=== PATIENT | female | born 1985 | race Caucasian/White ===

== ENCOUNTER → 2016-04-16 | Day surgery (SDC) | payer BC | LOC: RAD 13:02 | PROVIDERS: ATTEND Orthopaedic Surgery | PROC: BP08ZZZ Plain Radiography of Right Shoulder (ICD-10-PCS; principal; 2016-04-16) | DX: S43.431D Superior glenoid labrum lesion of right shoulder, subsequent encounter (principal); X58.XXXD Exposure to other specified factors, subsequent encounter | CPT/HCPCS: 73222; 73040; 77002; A9576 ==

== ENCOUNTER 2016-06-07 13:15 | Day surgery (SDC) | payer BC ==
[2016-06-03 10:32] LABS: HEMATOCRIT 37.7 % (36.0-47.0); HEMOGLOBIN 12.2 g/dL (12.0-15.5); HGB HCT DIFFERENCE -1.1; MEAN CORPUSCULAR HEMOGLOBIN 23.9 pg (27.0-33.4); MEAN CORPUSCULAR HGB CONC 32.3 g/dL (32.0-36.0); MEAN CORPUSCULAR VOLUME 74 fl (80-97); RED BLOOD COUNT 5.09 10^6/uL (3.72-5.28); RED CELL DISTRIBUTION WIDTH 16.2 % (11.5-14.0); WHITE BLOOD COUNT 6.2 10^3/uL (4.0-10.5)
[2016-06-03 10:57] LABS: ANION GAP 12 (5-19); BLOOD UREA NITROGEN 9 mg/dL (7-20); CALCIUM 10.2 mg/dL (8.4-10.2); CARBON DIOXIDE 29 mmol/L (22-30); CHLORIDE 101 mmol/L (98-107); CREATININE RESULT 0.68 mg/dL (0.52-1.25); GLUCOSE 87 mg/dL (75-110)
[~2016-06-07 13:15] MED LIST: BUPIVACAINE HCL 0.5 % INJ/PF 30 ML SDV ONE; CLINDAMYCIN 600 MG/D5W RTU 600 MG/50 ML RTUPB IV PRN; EPINEPHRINE INJ/PF 1 MG/1 ML AMPULE ONE; GLYCOPYRROLATE INJ 0.4 MG/2 ML VIAL ONE; LACTATED RINGERS 1000 ML IV PRN; LIDOCAINE 0.5% INJ-PF (5 MG/ML) 50 ML SDV SUBCUT PRN; LIDOCAINE 2% INJ-PF (20 MG/ML) 10 ML AMPUL ONE; METOCLOPRAMIDE HCL INJ/PF 10 MG/2 ML SDV ONE; NEOSTIGMINE METHYLSULFATE 10 MG/10 ML VIAL ONE; ONDANSETRON HCL INJ/PF 4 MG/2 ML SDV ONE; ROCURONIUM BROMIDE INJ 50 MG/5 ML VIAL IV ONE; SUCCINYLCHOLINE CHLORIDE INJ 200 MG/10 ML VIAL ONE
[2016-06-07] MEDS ORDERED: PROPOFOL INJ 200 MG/20 ML VIAL IV ONE (13:26)
[2016-06-07] MEDS ORDERED: FENTANYL CITRATE INJ/PF 250 MCG/5 ML AMPULE ONE (13:26)
[2016-06-07] MEDS ORDERED: MIDAZOLAM 2 MG/2 ML INJ ONE (13:26)
[2016-06-07] MEDS ORDERED: MORPHINE SULFATE 10 MG/ML INJ ONE ×2 (13:27→16:15)
[2016-06-07] MEDS ORDERED: ACETAMINOPHEN 100 ML IV ONE (13:27)
[2016-06-07] MEDS ORDERED: PROMETHAZINE HCL INJ 25 MG/1 ML VIAL IV PRN ×2 (13:45)
[2016-06-07] MEDS ORDERED: DIPHENHYDRAMINE HCL 50 MG/ML VIAL IV PRN (13:45)
[2016-06-07] MEDS ORDERED: FENTANYL CITRATE INJ/PF 100 MCG/2 ML AMPUL IV PRN ×3 (13:45)
[2016-06-07] MEDS ORDERED: MORPHINE SULFATE 10 MG/ML INJ IV PRN ×2 (13:45→15:58)
[2016-06-07] MEDS ORDERED: MEPERIDINE HCL/PF INJ 25 MG/1 ML DISP.SYRIN IV PRN (13:45)
[2016-06-07] MEDS ORDERED: OXYCODONE-ACETAMINOPHEN 5-325 MG TABLET PO PRN ×3 (13:45→15:58)
--- NOTE | 2016-06-07 15:57 | PDOC DISCHARGE SUMMARY ---
Discharge Summary (SDC) - Discharge Final Diagnosis: Right SLAP Tear Date of Surgery: 06/07/16 Discharge Date: 06/07/16 Condition: Good Treatment or Instructions: Schedule Follow Up w/ Dr. Elliott Nieves @ [facility] for Surgery to be seen in 10-14 days or as scheduled Ider: [place]: Eclectic: May remove dressing on postop day #3, keep incision covered and dry. Ice and elevate May begin finger range of motion attempting to make full fist. Stool softener of choice when on pain medication. Prescriptions: Oxycodone HCl/Acetaminophen [Percocet 5-325 mg Tablet] 1 - 2 tab PO ASDIR PRN # 50 tablet PRN Reason: Discharge Diet: As Tolerated Respiratory Treatments at Home: Deep Breathing/Coughing Discharge Activity: Activity As Tolerated Report the Following to Your Physician Immediately: Fever over 101 Degrees, Unusual Bleeding, Redness, Swelling, Warmth, Increased Soreness, Numbness, Tingling Sensation
[2016-06-07] MEDS ORDERED: ONDANSETRON HCL INJ/PF 4 MG/2 ML SDV ONE (16:02)
[2016-06-07 18:28] VITALS: BP 146/96
--- NOTE | 2016-06-07 19:04 | Operative Report ---
Operative Report DATE OF SURGERY: 06/07/16 PREOPERATIVE DIAGNOSIS: Right Shoulder SLAP Tear POSTOPERATIVE DIAGNOSIS: Same OPERATION: Right Shoulder Arthroscopy, Subacromial Decompression. Open Subpectoralis Biceps Tenodesis SURGEON: CELSO BOWMAN ANESTHESIA: GA COMPLICATIONS: None ESTIMATED BLOOD LOSS: Minimal PROCEDURE: Procedure in Detail: 31 yo female presented with year long right shoulder pain. Patient had MRI which demonstrated labral tear. We attempted conservative management with activity modification, physical therapy, injections and anti-inflammatories. This failed to provide relief at that point we discussed treatment options including continued conservative management versus operative intervention. After discussion of risks and benefits the joint decision was made to proceed with operative treatment. Procedure In Detail: Patient was seen and evaluated in the preoperative holding area. The upper extremity was initialized and marked. Patient received 2g of Ancef IV for bacterial prophylaxis. Patient was taken back to the operative room where transferred to the operative table and placed under general anesthesia. Once they were adequately anesthetized a there were placed in the beachchair position , bilateral lower extremities left upper extremity carefully padded and cervical spine was placed in neutral position. A surgical team debriefing was performed ensuring all instrumentation was available, the surgical procedure was discussed with possible concerns reviewed. The upper extremity was prepped with ChloraPrep and draped in a sterile fashion. A timeout was done identifying correct patient, procedure and extremity everyone in attendance agree with this and verbalized no concerns. A posterior lateral portal was established the arthroscope introduced into the glenohumeral joint. Via triangulation anterior portal was established and a cannula placed. Diagnostic arthroscopy demonstrated full-thickness SLAP tear with positive peel back. Small tear extending into the biceps tendon. Supraspinatus and infraspinatus remained intact without disruption. Subscapularis also remained intact. No evidence of posterior labral pathology. At that point given the patient's age and her anterior shoulder symptoms and along the bicipital groove the decision was made to proceed with biceps tenodesis. A tenotomy was performed repairing for future biceps tenodesis and labral edges were then debrided with the arthroscopic shaver. I then turned my attention to the subacromial space. Arthroscope was introduced in the subacromial space and a lateral portal established. There was mild bursitis and debridement of the subacromial bursa was undertaken. There was no evidence of acromial spur thus acromioplasty was not required in this case. The rotator cuff was inspected and remained in continuity without disruption. At this point I turned my attention to biceps tenodesis. Longitudinal skin incision was made along the inferior third of the pectoralis major. Blunt dissection was performed identifying the inferior border of the pectoralis major. Any peripheral vasculature was carefully coagulated. I then identified the tenotomized long head of the biceps which was retrieved and brought out the wound. The tendon was then secured 2 centimeters distal to the musculotendinous junction with a #2 fiber loop and the remaining diseased portion of the biceps was excised. The Arthrex biceps tenodesis button was then secured to my biceps tendon. Under direct visualization I then cleared an area along the anterior aspect of the humerus and drilled unicortically. The button was then placed into the unicortical hole and the biceps tendon was shuttled to the anterior cortex of the humerus. I then checked stability of the button confirming maximal fixation. Utilizing the free needle one limb of the remaining FiberWire was secured to the biceps providing further fixation. The elbow was then placed through range of motion to ensure appropriate tension of the biceps with flexion and extension. The wound was then copiously irrigated with normal saline. Any peripheral vasculature was carefully coagulated with Bovie cautery. Skin incisions were closed a running subcuticular 3-0 Monocryl suture reinforced with Dermabond and Steri-Strips. 30 mL of 0.5% Marcaine with epinephrine was injected for postoperative pain control. Sponge counts, instrument counts, needle counts counts were correct. Patient was then awoken from anesthesia. Transferred from the operating room table to the operating room stretcher. There was no intraoperative complications patient tolerated procedure well stable to PACU. Postoperative plan: Patient will begin physical therapy 2 weeks postoperatively focused on active and passive motion. We will avoid active biceps loading for 6 weeks.
== END 2016-06-07 18:28 | disposition home or self-care (01) ==
LOC: OROUT 13:15
PROVIDERS: ATTEND Orthopaedic Surgery
PROC: 0RBJ4ZZ Excision of Right Shoulder Joint, Percutaneous Endoscopic Approach (ICD-10-PCS; 2016-06-07)
PROC: 0LM30ZZ Reattachment of Right Upper Arm Tendon, Open Approach (ICD-10-PCS; principal; 2016-06-07 14:30)
DX: S43.431D Superior glenoid labrum lesion of right shoulder, subsequent encounter (principal); X58.XXXD Exposure to other specified factors, subsequent encounter; M75.51 Bursitis of right shoulder; J45.909 Unspecified asthma, uncomplicated; Z88.0 Allergy status to penicillin; Z79.1 Long term (current) use of non-steroidal anti-inflammatories (NSAID); Z79.899 Other long term (current) drug therapy; Z79.891 Long term (current) use of opiate analgesic
CPT/HCPCS: 24340; 36415; 84703; 85027; 80048; 29822; L3650; J2250; J3490 ×2; J0171; J3010; J2765; J2270; J0330; J2405; J2704; J0131; 1630

== ENCOUNTER 2016-07-10 16:32 | Emergency (ER) | payer OTHER, BC ==
[2016-07-10] MEDS ORDERED: ACETAMINOPHEN 325 MG TABLET PO ONE (17:38)
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
[2016-07-10] MEDS ORDERED: ACETAMINOPHEN 325 MG TABLET ONE (17:43)
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
[2016-07-10 19:00] VITALS: BP 127/95
== END 2016-07-10 19:10 | disposition home or self-care (01) ==
LOC: ER 16:32
DX: M25.569 Pain in unspecified knee (principal); M25.511 Pain in right shoulder; V89.2XXA Person injured in unspecified motor-vehicle accident, traffic, initial encounter
CPT/HCPCS: 71020; 99283

== ENCOUNTER 2016-07-12 15:39 | Emergency (ER) | payer OTHER, BC ==
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
[2016-07-12 17:08] VITALS: BP 121/92
== END 2016-07-12 17:07 | disposition home or self-care (01) ==
LOC: ER 15:39
DX: M25.511 Pain in right shoulder (principal)
CPT/HCPCS: 99283

== ENCOUNTER 2016-07-27 21:22 | Emergency (ER) | payer OTHER, BC ==
[2016-07-27 21:36] VITALS: BP 147/69
== END 2016-07-27 22:37 | disposition left against medical advice (07) ==
LOC: ER 21:22
DX: Z53.21 Procedure and treatment not carried out due to patient leaving prior to being seen by health care provider (principal)

== ENCOUNTER 2016-10-09 20:17 | Emergency (ER) | payer BC, OTHER ==
--- NOTE | 2016-10-09 20:49 | ER Document Report ---
ED Medical Screen (RME) - General Chief Complaint: Abdominal Pain Stated Complaint: BACK PAIN AND ABDOMINAL AND PAIN VOMITING Time Seen by Provider: 10/09/16 20:47 Notes: Patient states for 1 month she has had nausea and decreased appetite. She has also had some abdominal pain that started last night. This pain is in the epigastric area and radiates to her back. It has been constant. She has had some loose stool as well. No problems with urination. She denies any vaginal discharge or bleeding. She states she does not believe that she is currently . She has been under a lot of stress lately due to a recent shoulder surgery and getting behind on bills. TRAVEL OUTSIDE OF THE [place] IN LAST 30 DAYS: No - Related Data Allergies/Adverse Reactions: amoxicillin [Amoxicillin] Allergy (Intermediate, Verified 07/12/16 15:42) Hives Penicillins Allergy (Intermediate, Verified 07/12/16 15:42) Hives Past Medical History - Social History Family history: Reviewed & Not Pertinent - Past Medical History Cardiac Medical History: Denies: Hx Coronary Artery Disease, Hx Heart Attack, Hx Hypertension Pulmonary Medical History: Reports: Hx Asthma - CHILD, Hx Pneumonia - 2007 Denies: Hx Bronchitis, Hx COPD Neurological Medical History: Reports: Hx Migraine. Denies: Hx Cerebrovascular Accident, Hx Seizures Renal/ Medical History: Denies: Hx Peritoneal Dialysis Musculoskeltal Medical History: Denies Hx Arthritis, Reports Hx Musculoskeletal Trauma Past Surgical History: Reports: Hx Oral Surgery - Immunizations Immunizations up to date: Yes Hx Diphtheria, Pertussis, Tetanus Vaccination: Yes Physical Exam - Vital signs Vitals: Temp Pulse Resp BP Pulse Ox 98.1 F 100 16 138/93 H 100 10/09/16 20:25 10/09/16 20:25 10/09/16 20:25 10/09/16 20:25 10/09/16 20:25 Course - Vital Signs Vital signs: Temp Pulse Resp BP Pulse Ox 98.1 F 100 16 138/93 H 100 10/09/16 20:25 10/09/16 20:25 10/09/16 20:25 10/09/16 20:25 10/09/16 20:25
[2016-10-09 22:07] LABS: ABSOLUTE BASOPHILS # (AUTO) 0.1 10^3/uL (0.0-0.2); ABSOLUTE LYMPHOCYTES (AUTO) 1.5 10^3/uL (0.5-4.7); ABSOLUTE MONOCYTES (AUTO) 0.6 10^3/uL (0.1-1.4); ABSOLUTE NEUT (AUTO) 5.9 10^3/uL (1.7-8.2); BASOPHILS % (AUTO) 0.7 % (0-2); EOSINOPHILS % (AUTO) 0.2 % (0-6); HEMATOCRIT 35.7 % (36.0-47.0); HEMOGLOBIN 11.7 g/dL (12.0-15.5); HGB HCT DIFFERENCE -0.6; LYMPHOCYTES % (AUTO) 18.8 % (13-45); MEAN CORPUSCULAR HGB CONC 32.6 g/dL (32.0-36.0); MEAN CORPUSCULAR VOLUME 77 fl (80-97); MONOCYTES % (AUTO) 7.3 % (3-13); RED BLOOD COUNT 4.67 10^6/uL (3.72-5.28); RED CELL DISTRIBUTION WIDTH 16.3 % (11.5-14.0); WHITE BLOOD COUNT 8.1 10^3/uL (4.0-10.5)
[2016-10-09] MEDS ORDERED: NORMAL SALINE 1000 ML 1,000 ML IV ONE (22:21)
[2016-10-09] MEDS ORDERED: METOCLOPRAMIDE HCL ORAL SOLN 10 MG/10 ML UDCUP PO ONE (22:22)
[2016-10-09] MEDS ORDERED: LIDOCAINE 2% VISCOUS SOLN 20 ML UDCUP PO ONE (22:22)
[2016-10-09] MEDS ORDERED: FAMOTIDINE 20 MG TABLET PO ONE (22:22)
[2016-10-09] MEDS ORDERED: MAG HYDROX/AL HYDROX/SIMETH SUSP 30 ML UDCUP PO ONE (22:22)
[2016-10-09] MEDS ORDERED: ONDANSETRON HCL INJ/PF 4 MG/2 ML SDV IV ONE (22:23)
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
[2016-10-09 22:30] LABS: ALANINE AMINOTRANSFERASE 28 U/L (9-52); ALBUMIN 4.8 g/dL (3.5-5.0); ALKALINE PHOSPHATASE 50 U/L (38-126); ANION GAP 14 (5-19); ASPARTATE AMINO TRANSFERASE 17 U/L (14-36); BILIRUBIN,DIRECT 0.3 mg/dL (0.0-0.4); BILIRUBIN,TOTAL 0.5 mg/dL (0.2-1.3); BLOOD UREA NITROGEN 10 mg/dL (7-20); CALCIUM 9.8 mg/dL (8.4-10.2); CARBON DIOXIDE 25 mmol/L (22-30); CHLORIDE 101 mmol/L (98-107); CREATININE RESULT 0.63 mg/dL (0.52-1.25); GLUCOSE 93 mg/dL (75-110); LIPASE 151.5 U/L (23-300); POTASSIUM 3.5 mmol/L (3.6-5.0)
[2016-10-09] MEDS ORDERED: ONDANSETRON ODT 4 MG TAB (6 TAB/DSPK) PO PRN (23:50)
[2016-10-10 00:43] VITALS: BP 129/87
== END 2016-10-10 00:43 | disposition home or self-care (01) ==
LOC: ER 20:17
DX: K29.01 Acute gastritis with bleeding (principal); R10.9 Unspecified abdominal pain; M54.9 Dorsalgia, unspecified; R11.10 Vomiting, unspecified; R10.13 Epigastric pain
CPT/HCPCS: 99284; 96361; 96374; 36415; 83690; 84703; 85025; 80053; J3490; J2405; J7030

== ENCOUNTER 2016-10-29 17:12 | Emergency (ER) | payer SELFPAY ==
[2016-10-29] MEDS ORDERED: NORMAL SALINE 1000 ML 1,000 ML IV PRN (17:30)
[2016-10-29] MEDS ORDERED: LIDOCAINE 2% VISCOUS SOLN 20 ML UDCUP PO ONE (17:32)
[2016-10-29] MEDS ORDERED: MAG HYDROX/AL HYDROX/SIMETH SUSP 30 ML UDCUP PO ONE (17:32)
[2016-10-29] MEDS ORDERED: METOCLOPRAMIDE HCL ORAL SOLN 10 MG/10 ML UDCUP PO ONE (17:32)
--- NOTE | 2016-10-29 17:33 | ER Document Report ---
ED Medical Screen (RME) - General Chief Complaint: Abdominal Pain Stated Complaint: ABDOMINAL PAIN Time Seen by Provider: 10/29/16 17:30 Notes: Patient presents with over 1 month of epigastric pain that radiates to her back. She states she also had vomiting and lack of appetite. She states she also has not been staying hydrated. She states that she cannot eat or drink because it increases the pain and because it makes her vomit. She states she has been seen by her doctor and here in the emergency department. An ultrasound and blood work have been unremarkable to this point. Patient denies any previous abdominal surgeries or chronic medical conditions. TRAVEL OUTSIDE OF THE [place] IN LAST 30 DAYS: No - Related Data Allergies/Adverse Reactions: amoxicillin [Amoxicillin] Allergy (Intermediate, Verified 07/12/16 15:42) Hives Penicillins Allergy (Intermediate, Verified 07/12/16 15:42) Hives Past Medical History - Social History Family history: Reviewed & Not Pertinent - Past Medical History Cardiac Medical History: Denies: Hx Coronary Artery Disease, Hx Heart Attack, Hx Hypertension Pulmonary Medical History: Reports: Hx Asthma - CHILD, Hx Pneumonia - 2007 Denies: Hx Bronchitis, Hx COPD Neurological Medical History: Reports: Hx Migraine. Denies: Hx Cerebrovascular Accident, Hx Seizures Renal/ Medical History: Denies: Hx Peritoneal Dialysis Musculoskeltal Medical History: Denies Hx Arthritis, Reports Hx Musculoskeletal Trauma Past Surgical History: Reports: Hx Oral Surgery - Immunizations Immunizations up to date: Yes Hx Diphtheria, Pertussis, Tetanus Vaccination: Yes Physical Exam - Vital signs Vitals: Temp Pulse Resp BP Pulse Ox 99.7 F 116 H 15 134/85 H 100 10/29/16 17:17 10/29/16 17:17 10/29/16 17:17 10/29/16 17:17 10/29/16 17:17 Course - Vital Signs Vital signs: Temp Pulse Resp BP Pulse Ox 99.7 F 116 H 15 134/85 H 100 10/29/16 17:17 10/29/16 17:17 10/29/16 17:17 10/29/16 17:17 10/29/16 17:17
[2016-10-29 17:49] LABS: ABSOLUTE LYMPHOCYTES (AUTO) 1.5 10^3/uL (0.5-4.7); ABSOLUTE MONOCYTES (AUTO) 0.7 10^3/uL (0.1-1.4); ABSOLUTE NEUT (AUTO) 6.9 10^3/uL (1.7-8.2); BASOPHILS % (AUTO) 0.5 % (0-2); EOSINOPHILS % (AUTO) 0.4 % (0-6); HEMATOCRIT 38.7 % (36.0-47.0); HEMOGLOBIN 12.9 g/dL (12.0-15.5); LYMPHOCYTES % (AUTO) 16.4 % (13-45); MEAN CORPUSCULAR HEMOGLOBIN 25.4 pg (27.0-33.4); MEAN CORPUSCULAR HGB CONC 33.4 g/dL (32.0-36.0); MEAN CORPUSCULAR VOLUME 76 fl (80-97); MONOCYTES % (AUTO) 7.6 % (3-13); RED BLOOD COUNT 5.09 10^6/uL (3.72-5.28); SEGMENTED NEUTROPHILS % (AUTO) 75.1 % (42-78); WHITE BLOOD COUNT 9.2 10^3/uL (4.0-10.5)
[2016-10-29 18:05] LABS: APPEARANCE,URINE CLEAR; BILIRUBIN,URINE NEGATIVE (NEGATIVE); GLUCOSE, URINE NEGATIVE (NEGATIVE); KETONES,URINE NEGATIVE (NEGATIVE); LEUKOCYTE ESTERASE,URINE NEGATIVE (NEGATIVE); NITRITE,URINE NEGATIVE (NEGATIVE); PROTEIN,URINE NEGATIVE (NEGATIVE); URINE SPECIFIC GRAVITY 1.008; UROBILINOGEN,URINE NEGATIVE mg/dL (<2.0)
[2016-10-29 18:20] LABS: ANION GAP 15 (5-19)
--- NOTE | 2016-10-29 18:40 | ER Document Report ---
ED GI/ - General Mode of Arrival: Ambulatory Information source: Patient TRAVEL OUTSIDE OF THE [place] IN LAST 30 DAYS: No - HPI Similar symptoms previously: Yes Recently seen / treated by doctor: Yes <JENNIFFER PORTILLO - Last Filed: 10/29/16 21:50> <FRANSISCO MURRAY - Last Filed: 10/29/16 22:49> - General Chief Complaint: Abdominal Pain Stated Complaint: ABDOMINAL PAIN Time Seen by Provider: 10/29/16 17:30 Notes: Patient is a 31 year old female that presents to the emergency department today with complaints of upper abdominal pain. Patient states that the pain seem to radiate to her back. Patient states that she has been seen here in the past and was diagnosed with a stomach ulcer. Patient states that she has been using carafate with minimal relief. Patient states she has been referred to GI but she has not yet seen them. (JENNIFFER PORTILLO) - Related Data Allergies/Adverse Reactions: amoxicillin [Amoxicillin] Allergy (Intermediate, Verified 07/12/16 15:42) Hives Penicillins Allergy (Intermediate, Verified 07/12/16 15:42) Hives Past Medical History - General Information source: Patient - Social History Smoking Status: Never Smoker Cigarette use (# per day): No Frequency of alcohol use: None Drug Abuse: None Lives with: Family Family History: Reviewed & Not Pertinent Patient has suicidal ideation: No Patient has homicidal ideation: No Pulmonary Medical History: Reports: Hx Asthma - CHILD, Hx Pneumonia - 2007 Neurological Medical History: Reports: Hx Migraine Musculoskeltal Medical History: Reports Hx Musculoskeletal Trauma Past Surgical History: Reports: Hx Oral Surgery - Immunizations Immunizations up to date: Yes Hx Diphtheria, Pertussis, Tetanus Vaccination: Yes <JENNIFFER PORTILLO - Last Filed: 10/29/16 21:50> Review of Systems - Review of Systems Constitutional: No symptoms reported EENT: No symptoms reported Cardiovascular: No symptoms reported Respiratory: No symptoms reported Gastrointestinal: See HPI, Abdominal pain, Vomiting Genitourinary: No symptoms reported Female Genitourinary: No symptoms reported Musculoskeletal: No symptoms reported Skin: No symptoms reported Hematologic/Lymphatic: No symptoms reported Neurological/Psychological: No symptoms reported -: Yes All other systems reviewed and negative <JENNIFFER PORTILLO - Last Filed: 10/29/16 21:50> Physical Exam <JENNIFFER PORTILLO - Last Filed: 10/29/16 21:50> <FRANSISCO MURRAY - Last Filed: 10/29/16 22:49> - Vital signs Vitals: Temp Pulse Resp BP Pulse Ox 99.7 F 116 H 15 134/85 H 100 10/29/16 17:17 10/29/16 17:17 10/29/16 17:17 10/29/16 17:17 10/29/16 17:17 - Notes Notes: Physical Exam: General: Alert, appears uncomfortable. HEENT: Normocephalic. Atraumatic. PERRL. Extraocular movements intact. Oropharynx clear. Dry mucous membranes. Neck: Supple. Non-tender. Respiratory: No respiratory distress. Clear and equal breath sounds bilaterally. Cardiovascular: Regular rate and rhythm. Abdominal: Epigastric and right upper quadrant tenderness with palpation. No guarding, rebound, or rigidity. No distension. Normal Bowel Sounds. Back: Non-tender. No deformity or step off. Extremities: Moves all four extremities. Upper extremities: Normal inspection. Normal ROM. Lower extremities: Normal inspection. No edema. Normal ROM. Neurological: Normal cognition. AAOx4. Normal speech. Psychological: Normal affect. Normal Mood. Skin: Warm. Dry. Normal color. (JENNIFFER PORTILLO) Course - Laboratory Result Diagrams: 10/29/16 17:35 10/29/16 17:35 <JENNIFFER PORTILLO - Last Filed: 10/29/16 21:50> - Laboratory Result Diagrams: 10/29/16 17:35 10/29/16 17:35 <FRANSISCO MURRAY - Last Filed: 10/29/16 22:49> - Re-evaluation Re-evalutation: 10/29/16 22:48 Patient with no acute findings on blood work or ultrasound. Patient symptoms are very consistent with gastritis. Patient has continued to take naproxen. She is instructed to stop doing this and has been given instructions for treating gastritis and foods to avoid. Patient is to follow-up with her primary doctor and technology education instructor as previously recommended. Understands and agrees with plan. Stable for discharge. (FRANSISCO MURRAY) - Vital Signs Vital signs: Temp Pulse Resp BP Pulse Ox 98.5 F 116 H 18 108/70 99 10/29/16 21:59 10/29/16 17:17 10/29/16 21:59 10/29/16 21:59 10/29/16 21:59 - Laboratory Laboratory results interpreted by me: 10/29/16 10/29/16 10/29/16 17:35 17:35 17:35 MCV 76 L MCH 25.4 L RDW 16.0 H Chloride 108 H Carbon Dioxide 21 L Total Protein 8.5 H Albumin 5.2 H Urine Blood SMALL H Discharge <JENNIFFER PORTILLO - Last Filed: 10/29/16 21:50> <FRANSISCO MURRAY - Last Filed: 10/29/16 22:49> - Discharge Clinical Impression: Abdominal pain Qualifiers: Abdominal location: epigastric Qualified Code(s): R10.13 - Epigastric pain Gastritis Qualifiers: Gastritis type: unspecified gastritis Chronicity: unspecified Gastritis bleeding: without bleeding Qualified Code(s): K29.70 - Gastritis, unspecified, without bleeding Condition: Stable Disposition: HOME, SELF-CARE Instructions: Abdominal Pain ([facility]), Gastritis ([facility]) Additional Instructions: Stopped taking naproxen as it seems to be the source of your gastritis. Please follow-up with your primary care doctor. Please follow-up with a technology education instructor as recommended by your primary care doctor. Prescriptions: Omeprazole 20 mg PO DAILY #30 tablet. Ranitidine HCl [Zantac 150 mg Tablet] 150 mg PO BID #60 tablet Forms: Return to Work Scribe Attestation: 10/29/16 22:49 I personally performed the services described in the documentation, reviewed and edited the documentation which was dictated to the scribe in my presence, and it accurately records my words and actions. (FRANSISCO MURRAY) Scribe Documentation - Scribe Written by Ted:: Ted Jimenez, 10/29/2016 2154 acting as scribe for :: Kelby <JENNIFFER PORTILLO - Last Filed: 10/29/16 21:50>
[2016-10-29 18:44] LABS: ALANINE AMINOTRANSFERASE 25 U/L (9-52); ALBUMIN 5.2 g/dL (3.5-5.0); ALKALINE PHOSPHATASE 49 U/L (38-126); ASPARTATE AMINO TRANSFERASE 18 U/L (14-36); BILIRUBIN,DIRECT 0.4 mg/dL (0.0-0.4); BILIRUBIN,TOTAL 0.4 mg/dL (0.2-1.3); BLOOD UREA NITROGEN 9 mg/dL (7-20); CALCIUM 10.1 mg/dL (8.4-10.2); CARBON DIOXIDE 21 mmol/L (22-30); CHLORIDE 108 mmol/L (98-107); CREATININE RESULT 0.68 mg/dL (0.52-1.25); GLUCOSE 84 mg/dL (75-110); LIPASE 161.9 U/L (23-300); POTASSIUM 3.7 mmol/L (3.6-5.0); SODIUM 143.9 mmol/L (137-145); TOTAL PROTEIN 8.5 g/dL (6.3-8.2)
[2016-10-29] MEDS ORDERED: MORPHINE SULFATE 10 MG/ML INJ IV ONE (19:21)
[2016-10-29] MEDS ORDERED: ONDANSETRON HCL INJ/PF 4 MG/2 ML SDV IV ONE (19:21)
--- NOTE | 2016-10-29 19:47 | RADIOLOGY REPORT (SQ) ---
EXAM DESCRIPTION: U/S ABDOMEN LIMITED W/O DOP COMPLETED DATE/TIME: 10/29/2016 7:23 pm REASON FOR STUDY: RUQ, epigastric pain, nausea COMPARISON: None. TECHNIQUE: Dynamic and static grayscale images acquired of the abdomen and recorded on PACS. Additio nal selected color Doppler and spectral images recorded. LIMITATIONS: None. FINDINGS: PANCREAS: Incompletely visualized. LIVER: No masses. Echotexture normal. LIVER VASCULATURE: Normal directional flow of the main portal vein and hepatic veins. GALLBLADDER: There is a small polyp. This measures approximately 3 mm. ULTRASOUND-DETECTED PARIKH'S SIGN: Negative. INTRAHEPATIC DUCTS AND COMMON DUCT: CBD and intrahepatic ducts normal caliber. No filling defects. INFERIOR VENA CAVA: Normal flow. AORTA: No aneurysm. RIGHT KIDNEY: Normal size. Normal echogenicity. No solid or suspicious masses. No hydronephrosis. No calcifications. PERITONEAL AND RIGHT PLEURAL SPACE: No ascites or effusions. OTHER: No other significant findings. IMPRESSION: Small gallbladder polyp. No other significant findings. TECHNICAL DOCUMENTATION: JOB ID: [id number] [employer]- All Rights Reserved
[2016-10-29 21:11] VITALS: BP 108/70
[2016-10-29] MEDS ORDERED: HYDROCODONE/ACETAMINOPHEN 5-325 MG 6 TAB/DSPK PO PRN (21:53)
== END 2016-10-29 21:59 | disposition home or self-care (01) ==
LOC: ER 17:12
DX: K29.70 Gastritis, unspecified, without bleeding (principal); R10.13 Epigastric pain; R10.10 Upper abdominal pain, unspecified; Z88.0 Allergy status to penicillin
CPT/HCPCS: 99284; 96374; 96375; 36415; 83690; 85025; 81025; 80053; 81001; 76705; J3490; J2270; J2405

== ENCOUNTER 2018-04-12 19:56 | Emergency (ER) | payer BC, OTHER ==
[2018-04-12] MEDS ORDERED: METHOCARBAMOL 750 MG TABLET PO ONE (21:31)
[2018-04-12] MEDS ORDERED: LIDOCAINE 5% (700 MG) TRANSDERMAL ADH..PATCH TP ONE (21:31)
[2018-04-12] MEDS ORDERED: KETOROLAC TROMETHAMINE 60 MG/2 ML SDV IM ONE (21:31)
--- NOTE | 2018-04-12 21:45 | ER Document Report ---
HPI - HPI Patient complains to provider of: back pain Time Seen by Provider: 04/12/18 21:00 Pain Level: 4 Context: Pleasant 33-year-old female presents to the emergency department for acute lower back pain that radiates down her left leg. She states she first injured it 3 months ago at work and conservative therapy seem to work, then approximately 3 days ago she developed acute pain in her right paraspinal muscle at the level of L4. She states that the pain is 8 out of 10 and constant equivalent to giving . She states the pain radiates down her buttock into her leg that causes numbness and tingling periodically. She is uncomfortable to stand for long periods of time and generally cannot stay in one position for long periods. She says it is affecting her sleep and she is only at about an hour sleep a day. She denies fevers, saddle paresthesia, urinary retention, incontinence. She has no other complaints. She has tried Motrin 800 but is only using it intermittently. She has tried Flexeril with no success. - CONSTITUTIONAL Constitutional: DENIES: Fever, Chills - REPRODUCTIVE Reproductive: DENIES: : Past Medical History - Social History Smoking Status: Unknown if Ever Smoked Family History: Reviewed & Not Pertinent Patient has suicidal ideation: No Patient has homicidal ideation: No - Past Medical History Cardiac Medical History: Denies: Hx Coronary Artery Disease, Hx Heart Attack, Hx Hypertension Pulmonary Medical History: Reports: Hx Asthma - CHILD, Hx Pneumonia - 2007 Denies: Hx Bronchitis, Hx COPD Neurological Medical History: Reports: Hx Migraine. Denies: Hx Cerebrovascular Accident, Hx Seizures Renal/ Medical History: Denies: Hx Peritoneal Dialysis Musculoskeletal Medical History: Denies Hx Arthritis, Reports Hx Musculoskeletal Trauma Past Surgical History: Reports: Hx Oral Surgery - Immunizations Immunizations up to date: Yes Hx Diphtheria, Pertussis, Tetanus Vaccination: Yes Vertical Provider Document - CONSTITUTIONAL Notes: PHYSICAL EXAMINATION: Reviewed vital signs and charting by RN GENERAL: Well-appearing, well-nourished and in no acute distress. HEAD: Atraumatic, normocephalic. EYES: Pupils equal round extraocular movements intact, sclera anicteric, conjunctiva are normal. ENT: nares patent, Moist mucous membranes. NECK: Normal range of motion ABDOMEN: Soft, nontender, normoactive bowel sounds. No guarding, no rebound. No masses appreciated. EXTREMITIES: Normal range of motion, no pitting or edema. No cyanosis. NEUROLOGICAL: Face symmetric. Extraocular motions intact. 5 out of 5 strength in both the distal and proximal upper and lower extremities bilaterally. Sensation is grossly intact throughout. TTP right paraspinal muscle at the level of the 12 down to L5. Reproducible radiating pain down the right leg. PSYCH: Normal mood, normal affect. SKIN: Warm, Dry, normal turgor, no rashes or lesions noted. - INFECTION CONTROL TRAVEL OUTSIDE OF THE [place] IN LAST 30 DAYS: No Course - Re-evaluation Re-evalutation: 04/12/18 21:48 33-year-old female in mild distress presents with acute on subacute back pain that radiates down her right leg. Physical exam is remarkable for tenderness to palpation along the paraspinal muscles that reproduces radiating pain. Plan is to place a Lidoderm patch on her back, give her Toradol 30 mg IM 1 time. We will also send her home with a very short prescription for Valium for 2 days and some Robaxin that she can use after that once breakthrough pain relief is achieved. Patient denies fever, urinary retention or incontinence, or saddle paresthesia. Patient is stable for discharge with follow-up to her primary care doctor. - Vital Signs Vital signs: Temp Pulse Resp BP Pulse Ox 98.2 F 100 14 134/88 H 100 04/12/18 20:00 04/12/18 20:00 04/12/18 20:00 04/12/18 20:00 04/12/18 20:00 Discharge - Discharge Clinical Impression: Lower back pain Qualifiers: Chronicity: acute Back pain laterality: right Sciatica presence: with sciatica Sciatica laterality: sciatica of right side Qualified Code(s): M54.41 - Lumbago with sciatica, right side Condition: Stable Disposition: HOME, SELF-CARE Instructions: Ice Packs ([facility]), Low Back Pain ([facility]), Pain Medication Injection ([facility]), Warm Packs ([facility]) Additional Instructions: You were seen in the emergency department this evening for lower back pain. It is most likely related to a strain injury at work and you have any impingement of the spinal nerves that exit out of the vertebrae that are getting impinged causing the shooting pain down your back. I have given you a shot of Toradol which is equivalent to Motrin which could help with the pain. Of also given you a Lidoderm patch at the same time. I have also given you a very short course of Valium which is a muscle relaxant that you can take before bed. Please do not take this medication while at work or when driving and please reserve it for just prior to going to bed to help you sleep.. Lastly, I have given you a prescription for medication called Robaxin. This is a muscle relaxer that is a different class than the Valium but you can take after you use the Valium. Please do not take the Valium and the Robaxin together as they are both sedating medications. Prescriptions: Diazepam [Valium 5 mg Tablet] 5 mg PO TID #15 tablet Methocarbamol [Robaxin 750 mg Tablet] 750 mg PO ASDIR PRN #40 tablet PRN Reason: Forms: Return to Work Referrals: ROSE MARY CARPENTER PA-C [Primary Care Provider] - Follow up as needed
[2018-04-12 21:57] VITALS: BP 139/74
== END 2018-04-12 21:57 | disposition home or self-care (01) ==
LOC: ER 19:56
DX: M54.41 Lumbago with sciatica, right side (principal); M54.9 Dorsalgia, unspecified; M79.605 Pain in left leg; I10 Essential (primary) hypertension; J45.909 Unspecified asthma, uncomplicated
CPT/HCPCS: 99283; 96372; J1885; J3490

== ENCOUNTER 2018-04-29 12:39 | Emergency (ER) | payer OTHER ==
[2018-04-29] MEDS ORDERED: IBUPROFEN 800 MG TABLET PO ONE (13:56)
[2018-04-29] MEDS ORDERED: ACETAMINOPHEN 325 MG TABLET PO ONE (13:57)
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
[2018-04-29] MEDS ORDERED: LIDOCAINE 5% (700 MG) TRANSDERMAL ADH..PATCH TP ONE (15:44)
[2018-04-29 16:01] VITALS: BP 133/84
== END 2018-04-29 16:01 | disposition home or self-care (01) ==
LOC: ER 12:39
DX: S16.1XXA Strain of muscle, fascia and tendon at neck level, initial encounter (principal); S46.812A Strain of other muscles, fascia and tendons at shoulder and upper arm level, left arm, initial encounter; S43.402A Unspecified sprain of left shoulder joint, initial encounter; M25.552 Pain in left hip; M54.9 Dorsalgia, unspecified; M25.512 Pain in left shoulder; M54.5 Low back pain; M54.2 Cervicalgia; M79.603 Pain in arm, unspecified; M79.606 Pain in leg, unspecified; V87.7XXA Person injured in collision between other specified motor vehicles (traffic), initial encounter
CPT/HCPCS: 72070; 72110; 72125; 81025; 99284

== ENCOUNTER 2018-04-30 16:40 | Emergency (ER) | payer OTHER ==
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
[2018-04-30 19:39] VITALS: BP 147/89
== END 2018-04-30 20:05 | disposition left against medical advice (07) ==
LOC: ER 16:40
DX: I10 Essential (primary) hypertension (principal); G89.29 Other chronic pain; M54.9 Dorsalgia, unspecified; Z88.0 Allergy status to penicillin
CPT/HCPCS: 99283

== ENCOUNTER → 2018-05-17 | Outpatient (CLI) | payer SELFPAY ==
[2018-05-17 17:13] LABS: ABSOLUTE BASOPHILS # (AUTO) 0.1 10^3/uL (0.0-0.2); ABSOLUTE LYMPHOCYTES (AUTO) 1.1 10^3/uL (0.5-4.7); ABSOLUTE MONOCYTES (AUTO) 0.4 10^3/uL (0.1-1.4); ABSOLUTE NEUT (AUTO) 6.7 10^3/uL (1.7-8.2); BASOPHILS % (AUTO) 0.7 % (0-2); EOSINOPHILS % (AUTO) 0.1 % (0-6); HEMATOCRIT 38.9 % (36.0-47.0); HEMOGLOBIN 13.1 g/dL (12.0-15.5); MEAN CORPUSCULAR HEMOGLOBIN 26.9 pg (27.0-33.4); MEAN CORPUSCULAR HGB CONC 33.7 g/dL (32.0-36.0); MEAN CORPUSCULAR VOLUME 80 fl (80-97); MONOCYTES % (AUTO) 4.9 % (3-13); PLATELET COUNT 411 10^3/uL (150-450); RED BLOOD COUNT 4.87 10^6/uL (3.72-5.28); RED CELL DISTRIBUTION WIDTH 14.3 % (11.5-14.0); SEGMENTED NEUTROPHILS % (AUTO) 81.3 % (42-78); TOTAL CELLS COUNTED % (AUTO) 100 %; WHITE BLOOD COUNT 8.2 10^3/uL (4.0-10.5)
[2018-05-17 17:29] LABS: ALANINE AMINOTRANSFERASE 47 U/L (9-52); ALBUMIN 4.9 g/dL (3.5-5.0); ALKALINE PHOSPHATASE 60 U/L (38-126); ANION GAP 13 (5-19); ASPARTATE AMINO TRANSFERASE 42 U/L (14-36); BILIRUBIN,DIRECT 0.3 mg/dL (0.0-0.4); BILIRUBIN,TOTAL 0.5 mg/dL (0.2-1.3); BLOOD UREA NITROGEN 7 mg/dL (7-20); CALCIUM 9.9 mg/dL (8.4-10.2); CARBON DIOXIDE 27 mmol/L (22-30); CHLORIDE 104 mmol/L (98-107); GLUCOSE 109 mg/dL (75-110); SODIUM 143.6 mmol/L (137-145); TOTAL PROTEIN 7.9 g/dL (6.3-8.2)
== END ==
LOC: LAB 16:40
PROVIDERS: ATTEND Nurse Practitioner Family
DX: R10.10 Upper abdominal pain, unspecified (principal)
CPT/HCPCS: 36415; 80053; 83690; 85025; 87086

== ENCOUNTER 2018-05-25 15:39 | Emergency (ER) | payer OTHER ==
[2018-05-25] MEDS ORDERED: ACETAMINOPHEN 325 MG TABLET PO ONE (16:25)
[2018-05-25] MEDS ORDERED: LIDOCAINE 5% (700 MG) TRANSDERMAL ADH..PATCH TP ONE (16:26)
[2018-05-25] MEDS ORDERED: TRAMADOL HCL 50 MG TABLET PO ONE (16:26)
--- NOTE | 2018-05-25 16:32 | ER Document Report ---
HPI - HPI Patient complains to provider of: Low back pain Time Seen by Provider: 05/25/18 16:09 Onset: Yesterday Onset/Duration: Sudden Quality of pain: Sharp Pain Level: 5 Context: Patient states she was lifting a rack that weighed about 45 pounds and her foot slipped. Patient states that this caused a jarring of her back. Patient complains of low back pain. Patient states the pain instantly made her vomit x1 yesterday. Patient complains of persistent pain since then. Patient reports low back pain that radiates into the left lower extremity. Patient does have a history of chronic back pain. Associated Symptoms: Vomiting, Other - Low back pain. denies: Fever, Headache, Weakness Exacerbated by: Movement, Walking Relieved by: Denies Similar symptoms previously: Yes Recently seen / treated by doctor: No - ROS ROS below otherwise negative: Yes Systems Reviewed and Negative: Yes All other systems reviewed and negative - CONSTITUTIONAL Constitutional: DENIES: Fever, Chills - NEURO Neurology: DENIES: Weakness - GASTROINTESTINAL Gastrointestinal: REPORTS: Patient vomiting. DENIES: Abdominal Pain, Nausea - URINARY Urinary: DENIES: Dysuria, Urgency, Frequency - REPRODUCTIVE Reproductive: DENIES: : - MUSCULOSKELETAL Musculoskeletal: REPORTS: Back Pain. 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 Family History: Reviewed & Not Pertinent Pulmonary Medical History: Reports: Hx Asthma - CHILD, Hx Pneumonia - 2007 Neurological Medical History: Reports: Hx Migraine Renal/ Medical History: Denies: Hx Peritoneal Dialysis Musculoskeletal Medical History: Denies Hx Arthritis, Reports Hx Musculoskeletal Trauma Past Surgical History: Reports: Hx Oral Surgery, Hx Orthopedic Surgery - RIGHT SHOULDER - Immunizations Immunizations up to date: Yes Hx Diphtheria, Pertussis, Tetanus Vaccination: Yes Vertical Provider Document - CONSTITUTIONAL Agree With Documented VS: Yes Exam Limitations: No Limitations General Appearance: WD/WN Notes: PHYSICAL EXAMINATION: GENERAL: Well-appearing, well-nourished and in no acute distress. HEAD: Atraumatic, normocephalic. EYES: sclera clear, anicteric, conjunctiva are normal. ENT: nares patent, Moist mucous membranes. NECK: Normal range of motion, supple no lymphadenopathy LUNGS: respirations unlabored HEART: Regular rate and rhythm without murmurs EXTREMITIES: Normal range of motion, no pitting or edema. No cyanosis. Gait normal, pt ambulates without difficulty BACK: Lower lumbar tenderness, lumbar paraspinal tenderness, no deformities or step-offs. No CVA tenderness. NEUROLOGICAL: Cranial nerves grossly intact. Normal speech, normal gait. No saddle anesthesia. 2+ bilateral patellar reflexes PSYCH: Normal mood, normal affect. SKIN: Warm, Dry, normal turgor, no rashes or lesions noted. - INFECTION CONTROL TRAVEL OUTSIDE OF THE [place] IN LAST 30 DAYS: No Course - Re-evaluation Re-evalutation: 05/25/18 16:28 Patient reports only taking muscle relaxer for pain relief. Patient has multiple prescriptions for narcotics as well as tramadol. Patient has had several narcotic prescriptions from multiple providers this month alone. Last time patient was seen by this provider patient had requested a prescription for tramadol on top of her oxycodone prescription at that visit as well. Patient did not initially state that she was taking any narcotic medication for her back issue. Patient states that she has not been taking the oxycodone because it upsets her stomach. Patient states that she does not need nausea medicine that she already has prescription for this. Patient states she is awaiting a referral to see a different pain management doctor as she could not afford integrative pain solutions. Patient states that she went to her primary doctor's office today and they said that they could not do anything for her regarding her chronic pain and referred her to the ER for treatment. Patient advised that no new narcotic prescriptions will be given here today and that she should take her medicines that she has unless she wants to have her primary doctor or pain management doctor changed him. Patient advised that if she gets a ride she can have one dose of medicine here. Patient educated on concerning findings given the fact that she has had multiple narcotic prescriptions from multiple providers. - Vital Signs Vital signs: Temp Pulse Resp BP Pulse Ox 98.2 F 96 16 138/93 H 100 05/25/18 16:04 05/25/18 16:04 05/25/18 16:04 05/25/18 16:04 05/25/18 16:04 Discharge - Discharge Clinical Impression: Chronic back pain Qualifiers: Back pain location: low back pain Back pain laterality: bilateral Sciatica presence: with sciatica Sciatica laterality: sciatica of left side Qualified Code(s): M54.42 - Lumbago with sciatica, left side Condition: Stable Disposition: HOME, SELF-CARE Instructions: Chronic Back Pain ([facility]) Additional Instructions: Return immediately for any new or worsening symptoms Followup with your primary care provider, call tomorrow to make a followup appointment Take your medications that you have at home as prescribed You can use a topical [id number] lidocaine patches to help with pain relief. Forms: Return to Work Referrals: ROSE MARY CARPENTER PA-C [Primary Care Provider] - Follow up tomorrow [facility] [Provider Group] - Follow up as needed
[2018-05-25 17:00] VITALS: BP 128/88
== END 2018-05-25 17:03 | disposition home or self-care (01) ==
LOC: ER 15:39
DX: M54.42 Lumbago with sciatica, left side (principal); M79.605 Pain in left leg; M54.9 Dorsalgia, unspecified; G89.29 Other chronic pain; X50.0XXA Overexertion from strenuous movement or load, initial encounter; J45.909 Unspecified asthma, uncomplicated
CPT/HCPCS: 99283

== ENCOUNTER 2018-07-20 15:18 | Emergency (ER) | payer OTHER ==
--- NOTE | 2018-07-20 16:01 | ER Document Report ---
ED Medical Screen (RME) - General Chief Complaint: Headache Stated Complaint: HEADACHE Time Seen by Provider: 07/20/18 16:01 Primary Care Provider: ROSE MARY CARPENTER PA-C [Primary Care Provider] - Follow up as needed Notes: Patient is a 33-year-old female presents emergency department with a headache, backache, and complaints of high blood pressure. Patient injured her back in November. She does not know exactly how she had injured her back, but just has random pain. Denies history of IV drug abuse, loss of bladder or bowel function, or weakness. Admits to having some tingling on the right side of her leg. She has been taking lisinopril, but states that her blood pressure still high at home. Exam: Blood pressure 141/101. Heart sounds: S1-S2. Lungs: clear TRAVEL OUTSIDE OF THE [place] IN LAST 30 DAYS: No - Related Data Allergies/Adverse Reactions: amoxicillin [Amoxicillin] Allergy (Intermediate, Verified 07/20/18 15:21) Hives Penicillins Allergy (Intermediate, Verified 07/20/18 15:21) Hives Sulfa (Sulfonamide Antibiotics) Allergy (Intermediate, Verified 07/20/18 16:01) Hives Past Medical History - Social History Family history: Reviewed & Not Pertinent - Past Medical History Cardiac Medical History: Denies: Hx Coronary Artery Disease, Hx Heart Attack, Hx Hypertension Pulmonary Medical History: Reports: Hx Asthma - CHILD, Hx Pneumonia - 2007 Denies: Hx Bronchitis, Hx COPD Neurological Medical History: Reports: Hx Migraine. Denies: Hx Cerebrovascular Accident, Hx Seizures Renal/ Medical History: Denies: Hx Peritoneal Dialysis Musculoskeltal Medical History: Denies Hx Arthritis, Reports Hx Musculoskeletal Trauma Past Surgical History: Reports: Hx Oral Surgery, Hx Orthopedic Surgery - RIGHT SHOULDER - Immunizations Immunizations up to date: Yes Hx Diphtheria, Pertussis, Tetanus Vaccination: Yes Physical Exam - Vital signs Vitals: Temp Pulse Resp BP Pulse Ox 98.3 F 109 H 16 128/75 H 100 07/20/18 15:40 07/20/18 15:40 07/20/18 15:40 07/20/18 15:40 07/20/18 15:40 Course - Vital Signs Vital signs: Temp Pulse Resp BP Pulse Ox 98.3 F 109 H 16 128/75 H 100 07/20/18 15:40 07/20/18 15:40 07/20/18 15:40 07/20/18 15:40 07/20/18 15:40 Doctor's Discharge - Discharge Referrals: ROSE MARY CARPENTER PA-C [Primary Care Provider] - Follow up as needed
[2018-07-20] MEDS ORDERED: LIDOCAINE 5% (700 MG) TRANSDERMAL ADH..PATCH TP ONE (16:06)
[2018-07-20] MEDS ORDERED: ACETAMINOPHEN 325 MG TABLET PO ONE (16:07)
[2018-07-20 16:41] LABS: ABSOLUTE BASOPHILS # (AUTO) 0.1 10^3/uL (0.0-0.2); ABSOLUTE MONOCYTES (AUTO) 0.4 10^3/uL (0.1-1.4); ABSOLUTE NEUT (AUTO) 5.2 10^3/uL (1.7-8.2); BASOPHILS % (AUTO) 0.8 % (0-2); EOSINOPHILS % (AUTO) 0.5 % (0-6); HEMATOCRIT 38.8 % (36.0-47.0); LYMPHOCYTES % (AUTO) 15.2 % (13-45); MEAN CORPUSCULAR HEMOGLOBIN 26.9 pg (27.0-33.4); MEAN CORPUSCULAR HGB CONC 33.5 g/dL (32.0-36.0); MEAN CORPUSCULAR VOLUME 80 fl (80-97); MONOCYTES % (AUTO) 5.6 % (3-13); PLATELET COUNT 326 10^3/uL (150-450); RED BLOOD COUNT 4.83 10^6/uL (3.72-5.28); RED CELL DISTRIBUTION WIDTH 14.4 % (11.5-14.0); SEGMENTED NEUTROPHILS % (AUTO) 77.9 % (42-78); TOTAL CELLS COUNTED % (AUTO) 100 %; WHITE BLOOD COUNT 6.6 10^3/uL (4.0-10.5)
[2018-07-20 17:09] LABS: ALANINE AMINOTRANSFERASE 28 U/L (9-52); ALBUMIN 4.8 g/dL (3.5-5.0); ALKALINE PHOSPHATASE 52 U/L (38-126); ANION GAP 15 (5-19); ASPARTATE AMINO TRANSFERASE 21 U/L (14-36); BILIRUBIN,DIRECT 0.2 mg/dL (0.0-0.4); BILIRUBIN,TOTAL 0.3 mg/dL (0.2-1.3); BLOOD UREA NITROGEN 15 mg/dL (7-20); CALCIUM 10.2 mg/dL (8.4-10.2); CARBON DIOXIDE 26 mmol/L (22-30); CHLORIDE 103 mmol/L (98-107); GLUCOSE 99 mg/dL (75-110); POTASSIUM 4.3 mmol/L (3.6-5.0); SODIUM 143.8 mmol/L (137-145); TOTAL PROTEIN 8.3 g/dL (6.3-8.2)
--- NOTE | 2018-07-20 19:29 | RADIOLOGY REPORT (SQ) ---
EXAM DESCRIPTION: CT HEAD WITHOUT COMPLETED DATE/TIME: 07/20/2018 7:21 pm REASON FOR STUDY: negron COMPARISON: 08/10/2015 TECHNIQUE: Axial images acquired through the brain without intravenous contrast. Images reviewed wi th bone, brain and subdural windows. Additional sagittal and coronal reconstructions were generated. Images stored on PACS. All CT scanners at this facility use dose modulation, iterative reconstruction, and/or weight based d osing when appropriate to reduce radiation dose to as low as reasonably achievable (ALARA). [facility]: Dose Right [facility]: CareDose [facility]: Dose Right [facility]: Teradose 4D [facility]: [employer] RADIATION DOSE: CT Rad equipment meets quality standard of care and radiation dose reduction techniq ues were employed. CTDIvol: 53.2 mGy. DLP: 1124 mGy-cm. mGy. LIMITATIONS: None. FINDINGS: VENTRICLES: Normal size and contour. CEREBRUM: No masses. No hemorrhage. No midline shift. No evidence for acute infarction. Normal gra y/white matter differentiation. No areas of low density in the white matter. CEREBELLUM: No masses. No hemorrhage. No alteration of density. No evidence for acute infarction. EXTRAAXIAL SPACES: No fluid collections. No masses. ORBITS AND GLOBE: No intra- or extraconal masses. Normal contour of globe without masses. CALVARIUM: No fracture. PARANASAL SINUSES: No fluid or mucosal thickening. SOFT TISSUES: No mass or hematoma. OTHER: No other significant finding. IMPRESSION: NORMAL BRAIN CT WITHOUT CONTRAST. EVIDENCE OF ACUTE STROKE: NO. COMMENT: Quality ID # [id number]: Final reports with documentation of one or more dose reduction techniques (e.g., Automated exposure control, adjustment of the mA and/or kV according to patient size, use of iterative reconstruction technique) TECHNICAL DOCUMENTATION: JOB ID: [id number] [employer]- All Rights Reserved Reading location - IP/workstation name: [email or web address]
--- NOTE | 2018-07-20 19:30 | EKG REPORT ---
SEVERITY:- BORDERLINE ECG - SINUS RHYTHM BORDERLINE T ABNORMALITIES, ANTERIOR LEADS : Confirmed by: Shelly Lazar 20-Jul-2018 19:29:36
[2018-07-20 19:47] LABS: AMORPHOUS SEDIMENT,URINE 1+ /HPF; APPEARANCE,URINE TURBID; BILIRUBIN,URINE NEGATIVE (NEGATIVE); COLOR,URINE YELLOW; GLUCOSE, URINE NEGATIVE (NEGATIVE); KETONES,URINE NEGATIVE (NEGATIVE); LEUKOCYTE ESTERASE,URINE NEGATIVE (NEGATIVE); NITRITE,URINE NEGATIVE (NEGATIVE); PROTEIN,URINE NEGATIVE (NEGATIVE); URINE SPECIFIC GRAVITY 1.026; UROBILINOGEN,URINE NEGATIVE mg/dL (<2.0)
--- NOTE | 2018-07-20 19:57 | ER Document Report ---
Addendum entered and electronically signed by ALIN FRIEND PA-C 07/20/18 20:36: Discharge - Discharge Clinical Impression: Chronic pain Qualifiers: Chronic pain type: chronic pain syndrome Qualified Code(s): G89.4 - Chronic pain syndrome Condition: Stable Disposition: HOME, SELF-CARE Additional Instructions: I am sorry that we can help you any further rehab. I have offered everything you can think about it in the emergency room with the exception of narcotic medication which I do not think is warranted at this time. You currently received 28 hydrocodone tablets for 4 days ago and at this point out of the emergency room we can offer more. I am giving discharge planning notification to contact you your phone number tomorrow to see there is anything they can help you with this far is establishing with a structured pain management regime. Ultimately you are going to need an MRI we just do not do those out of the emergency room. Symptoms been going on for a while and you have a primary care doctor that should be able to help you out with this. If we can be of any assistance to you with the exception of narcotic medications please do not hesitate to return. Prescriptions: Promethazine HCl [Phenergan 25 mg Tablet] 12.5 mg PO Q6 #10 tablet Referrals: ROSE MARY CARPENTER PA-C [Primary Care Provider] - Follow up as needed Original Note: ED General - General Chief Complaint: Headache Stated Complaint: HEADACHE Time Seen by Provider: 07/20/18 16:01 Primary Care Provider: ROSE MARY CARPENTER PA-C [Primary Care Provider] - Follow up as needed Mode of Arrival: Ambulatory Information source: Patient Notes: Patient is a 33-year-old female who comes in with multiple complaints. Her primary complaint is a headache but she states that back in November she injured her back with unknown type of injury she also has high blood pressure which she feels comes from the pain that she is experiencing. Patient has a primary care provider Dr. French who is been following her along with hypertension and headaches in the back pain. She states she has had x-rays of her back and he is attempted to get her into pain management without success so far. He does and has tried to get an MRI done but according to her it is been slow going with the insurance company to approve it. Patient states that she is trying to explain to people that this is not muscle type of the pain is more of a burning sensation in her spinal column area and it does radiate down into her buttocks. She states that 1 of the people that she is seen pain specialist did an x-ray and told her that her spinal curvature is a little bit off and that her presentation is that of a sciatica and she does need to have an MRI. Patient also feels that these headaches that she is experiencing are coming from her back pain. She states that several months ago she had shoulder pain and this pain caused her to have migraines so bad that she nearly passed out. She is also had migraine headaches that have made her have vomiting without warning. She was placed on Maxalt by her primary care provider but has had no MRI of her head as well. Patient has not had any work-up to get a diagnosis of a migraine headache. She has not had a CT of her head in the past. 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 Seems that her blood pressure is more governed by her diastolic than her systolic. She had been running greater than 100 according to records she keeps at home before her blood pressure machine broke and since her primary care is taken her off the diuretic and placed only on lisinopril. She also states that that is why she came here tonight is because she felt like her blood pressure was elevated to much. TRAVEL OUTSIDE OF THE [place] IN LAST 30 DAYS: No - HPI Onset: Other - Acute exacerbation of a chronic problem since November Onset/Duration: Gradual, Intermittent, Worse Quality of pain: Sharp, Stabbing, Throbbing Pain Level: 4 Associated symptoms: Headache, Nausea, Vomiting. denies: Fever, Sinus pain/drainage, Shortness of breath, Weakness Exacerbated by: Denies Relieved by: Denies Similar symptoms previously: Yes Recently seen / treated by doctor: Yes - Related Data Allergies/Adverse Reactions: amoxicillin [Amoxicillin] Allergy (Intermediate, Verified 07/20/18 15:21) Hives Penicillins Allergy (Intermediate, Verified 07/20/18 15:21) Hives Sulfa (Sulfonamide Antibiotics) Allergy (Intermediate, Verified 07/20/18 16:01) Hives Past Medical History - General Information source: Patient - Social History Smoking Status: Never Smoker Cigarette use (# per day): No Chew tobacco use (# tins/day): No Frequency of alcohol use: None Drug Abuse: None Lives with: Family Family History: Reviewed & Not Pertinent Patient has suicidal ideation: No Patient has homicidal ideation: No - Past Medical History Cardiac Medical History: Reports: Hx Hypertension Denies: Hx Coronary Artery Disease, Hx Heart Attack Pulmonary Medical History: Reports: Hx Asthma - CHILD, Hx Pneumonia - 2007 Denies: Hx Bronchitis, Hx COPD Neurological Medical History: Reports: Hx Migraine. Denies: Hx Cerebrovascular Accident, Hx Seizures Renal/ Medical History: Denies: Hx Peritoneal Dialysis Musculoskeletal Medical History: Denies Hx Arthritis, Reports Hx Musculoskeletal Trauma Past Surgical History: Reports: Hx Oral Surgery, Hx Orthopedic Surgery - RIGHT SHOULDER - Immunizations Immunizations up to date: Yes Hx Diphtheria, Pertussis, Tetanus Vaccination: Yes Review of Systems - Review of Systems Constitutional: No symptoms reported EENT: No symptoms reported Cardiovascular: No symptoms reported Respiratory: No symptoms reported Gastrointestinal: No symptoms reported Genitourinary: No symptoms reported Female Genitourinary: No symptoms reported Musculoskeletal: No symptoms reported Skin: No symptoms reported Hematologic/Lymphatic: No symptoms reported Neurological/Psychological: No symptoms reported, Headaches -: Yes All other systems reviewed and negative Physical Exam - Vital signs Vitals: Temp Pulse Resp BP Pulse Ox 98.3 F 109 H 16 128/75 H 100 07/20/18 15:40 07/20/18 15:40 07/20/18 15:40 07/20/18 15:40 07/20/18 15:40 Interpretation: Hypertensive, Tachycardic - Notes Notes: PHYSICAL EXAMINATION: GENERAL:well-nourished and in no acute distress. But very uncomfortable appearing HEAD: Atraumatic, normocephalic. EYES: Pupils appear slightly dilated but reactive, extraocular movements intact, conjunctiva are normal. ENT: Nares patent, oropharynx clear without exudates. Moist mucous membranes. No frontal or maxillary sinus tenderness to palpation. NECK: Normal range of motion, supple without lymphadenopathy LUNGS: Breath sounds clear to auscultation bilaterally and equal. No wheezes rales or rhonchi. HEART: Regular rate and rhythm without murmurs ABDOMEN: Soft, nontender, nondistended abdomen. No guarding, no rebound. No masses appreciated. Female : deferred Musculoskeletal: Physical examination of patient's low back shows mildly reproducible tenderness to palpation around the lower lumbar spine area. Does not seem to extend into the muscle area. There are no palpable knots paravertebrally. Patient has decreased range of motion with flexion and extension at the hip as well as rotation. Straight leg raises are positive on the left side to about 25 degrees. She displays good DTRs. Patient's vascular exam the lower extremities also shows to be normal. We are able to palpate into and near at the sciatic notch that shows moderate amount of tenderness and discomfort in that area. NEUROLOGICAL: Normal speech, normal gait. Normal sensory, motor exams PSYCH: Normal mood, normal affect. SKIN: Warm, Dry, normal turgor, no rashes or lesions noted. Course - Re-evaluation Re-evalutation: 07/20/18 20:25 Patient's labs have come back negative with the exception of her drug screen. I had asked patient if she was on any medications the only thing she told me she was on was Maxalt. My physical exam showed that she had dilated pupils as documented and when I went ahead and checked a urine drug screen. She came back positive for benzos and opiates. When I went in and asked her about it she then told me that she has been given multiple pain management places she has been on medications and nothing helps. I started to offer her Toradol she refused it because she said it does not help she is had it multiple times. She said that the Lidoderm patch that was placed on her today does not work as does not any of the [id number] patches she is try tomorrow. I then offered her gabapentin/Neurontin she states she is taking it currently which she did not tell me about and is not working as well. I offered her muscle relaxers and the patient stated that she is tried Skelaxin Flexeril and Robaxin and none of those work at that point when discussed the case with Dr. Agrawal who also looked at the [employer] aware sheets that I printed out and patient has had 15 providers and 55 prescriptions and going to 6 different pharmacies since March 24 of this year. Her overdose risk score 700 so at this point there is limited things I can offer. I have gone in and told her I would put in for a discharge planning for them to contact her to see if there is anything they can do about getting her into a structured pain management clinic. Patient has gone off into a crying episode on me and again I offered her the Toradol and Phenergan for nausea and patient received states none of it works for her. The only thing that she wants his narcotics. I have told her that the government has placed this in the spring and we are not able to write for any more narcotics in which she has. So at this point time will discharge patient home. 07/20/18 20:33 I discussed the case with Dr. Agrawal and she agrees after reviewing patient's chart and her history also with the [employer]EW[employer] aware that we cannot add any more narcotic medication to this resume her what she is taking currently. I have offered again the Toradol I have offered again Neurontin all of which she states she is currently taking. And or it does not help. - Vital Signs Vital signs: Temp Pulse Resp BP Pulse Ox 97.6 F 116 H 18 146/96 H 100 07/20/18 18:38 07/20/18 20:14 07/20/18 20:14 07/20/18 20:14 07/20/18 20:14 - Laboratory Result Diagrams: 07/20/18 16:30 07/20/18 16:30 Laboratory results interpreted by me: 07/20/18 07/20/18 16:30 16:30 MCH 26.9 L RDW 14.4 H Total Protein 8.3 H Discharge - Discharge Clinical Impression: Chronic pain Qualifiers: Chronic pain type: chronic pain syndrome Qualified Code(s): G89.4 - Chronic pa in syndrome Condition: Stable Disposition: HOME, SELF-CARE Additional Instructions: I am sorry that we can help you any further rehab. I have offered everything you can think about it in the emergency room with the exception of narcotic medication which I do not think is warranted at this time. You currently received 28 hydrocodone tablets for 4 days ago and at this point out of the emergency room we can offer more. I am giving discharge planning notification to contact you your phone number tomorrow to see there is anything they can help you with this far is establishing with a structured pain management regime. Ultimately you are going to need an MRI we just do not do those out of the emergency room. Symptoms been going on for a while and you have a primary care doctor that should be able to help you out with this. If we can be of any assistance to you with the exception of narcotic medications please do not hesitate to return. Prescriptions: Promethazine HCl [Phenergan 25 mg Tablet] 12.5 mg PO Q6 #10 tablet Referrals: ROSE MARY CARPENTER PA-C [Primary Care Provider] - Follow up as needed
[2018-07-20 20:00] LABS: URINE AMPHETAMINES SCREEN NEGATIVE; URINE BARBITURATES SCREEN NEGATIVE; URINE BENZODIAZEPINES SCREEN UNCONFIRMED POSITIVE; URINE COCAINE SCREEN NEGATIVE; URINE MARIJUANA (THC) SCREEN NEGATIVE; URINE METHADONE SCREEN NEGATIVE; URINE PHENCYCLIDINE SCREEN NEGATIVE
[2018-07-20 20:15] VITALS: BP 146/96
[2018-07-20] MEDS ORDERED: KETOROLAC TROMETHAMINE 60 MG/2 ML SDV IM ONE (20:20)
[2018-07-20] MEDS ORDERED: ONDANSETRON 4 MG TAB.RAPDIS PO ONE (20:35)
== END 2018-07-20 20:52 | disposition home or self-care (01) ==
LOC: ER 15:18
DX: G89.4 Chronic pain syndrome (principal); M54.9 Dorsalgia, unspecified; R51 Headache; I10 Essential (primary) hypertension; Z79.899 Other long term (current) drug therapy; R11.2 Nausea with vomiting, unspecified; H57.04 Mydriasis; Z88.0 Allergy status to penicillin; Z88.2 Allergy status to sulfonamides
CPT/HCPCS: 93005; 99284; 36415; 85025; 81025; 80053; 81001; 80307; 70450; 93010; S0119

== ENCOUNTER 2019-01-04 15:22 | Emergency (ER) | payer BC, OTHER ==
[2019-01-04 16:08] LABS: ABSOLUTE BASOPHILS # (AUTO) 0.1 10^3/uL (0.0-0.2); ABSOLUTE EOSINOPHILS # (AUTO) 0.1 10^3/uL (0.0-0.6); ABSOLUTE LYMPHOCYTES (AUTO) 1.5 10^3/uL (0.5-4.7); ABSOLUTE MONOCYTES (AUTO) 0.5 10^3/uL (0.1-1.4); ABSOLUTE NEUT (AUTO) 6.4 10^3/uL (1.7-8.2); BASOPHILS % (AUTO) 0.7 % (0-2); HEMATOCRIT 38.4 % (36.0-47.0); HEMOGLOBIN 12.8 g/dL (12.0-15.5); LYMPHOCYTES % (AUTO) 17.6 % (13-45); MEAN CORPUSCULAR HEMOGLOBIN 26.5 pg (27.0-33.4); MEAN CORPUSCULAR HGB CONC 33.2 g/dL (32.0-36.0); MEAN CORPUSCULAR VOLUME 80 fl (80-97); MONOCYTES % (AUTO) 5.6 % (3-13); PLATELET COUNT 361 10^3/uL (150-450); RED BLOOD COUNT 4.82 10^6/uL (3.72-5.28); SEGMENTED NEUTROPHILS % (AUTO) 75.1 % (42-78); TOTAL CELLS COUNTED % (AUTO) 100 %; WHITE BLOOD COUNT 8.6 10^3/uL (4.0-10.5)
[2019-01-04 16:34] LABS: ALBUMIN 4.8 g/dL (3.5-5.0); ALKALINE PHOSPHATASE 63 U/L (38-126); ANION GAP 9 (5-19); ASPARTATE AMINO TRANSFERASE 43 U/L (14-36); BILIRUBIN,DIRECT 0.3 mg/dL (0.0-0.4); BILIRUBIN,TOTAL 0.5 mg/dL (0.2-1.3); BLOOD UREA NITROGEN 12 mg/dL (7-20); CARBON DIOXIDE 30 mmol/L (22-30); CHLORIDE 102 mmol/L (98-107); GLUCOSE 104 mg/dL (75-110); POTASSIUM 4.5 mmol/L (3.6-5.0); TOTAL PROTEIN 8.3 g/dL (6.3-8.2)
[2019-01-04 17:05] LABS: AMORPHOUS SEDIMENT,URINE TRACE /HPF; APPEARANCE,URINE CLOUDY; BILIRUBIN,URINE NEGATIVE (NEGATIVE); COLOR,URINE YELLOW; GLUCOSE, URINE NEGATIVE (NEGATIVE); KETONES,URINE NEGATIVE (NEGATIVE); LEUKOCYTE ESTERASE,URINE NEGATIVE (NEGATIVE); NITRITE,URINE NEGATIVE (NEGATIVE); PROTEIN,URINE NEGATIVE (NEGATIVE); URINE SPECIFIC GRAVITY 1.019; UROBILINOGEN,URINE NEGATIVE mg/dL (<2.0)
[2019-01-04] MEDS ORDERED: OXYCODONE-ACETAMINOPHEN 5-325 MG TABLET PO ONE (18:30)
--- NOTE | 2019-01-04 18:40 | ER Document Report ---
ED General - General Chief Complaint: Post Surgical Pain Stated Complaint: POST SURGICAL PAIN Time Seen by Provider: 01/04/19 15:39 Primary Care Provider: ROSE MARY CARPENTER PA-C [[facility]YSIC[facility] [employer] [facility]] - Follow up in 1 week TRAVEL OUTSIDE OF THE [place] IN LAST 30 DAYS: No - HPI Notes: 33-year-old female to the emergency department with complaints of low back pain that has been ongoing getting a little bit worse for the past week and sensation of feeling hot and clammy for the past 3 days. She admits to associated nausea. 3 weeks ago she had a laminectomy done by Dr. Mitchell at [facility]. States that she has been taking Percocet 5 mg every 6 hours for pain with little relief. She states that she saw Dr. Mitchell's PA 1 week after surgery. She denies any bladder or bowel incontinence, leg radiculopathy, urinary retention. She states that she started to feel worse today like her body was on fire. She has not called her surgeon about this. - Related Data Allergies/Adverse Reactions: amoxicillin [Amoxicillin] Allergy (Intermediate, Verified 07/20/18 15:21) Hives Penicillins Allergy (Intermediate, Verified 07/20/18 15:21) Hives Sulfa (Sulfonamide Antibiotics) Allergy (Intermediate, Verified 07/20/18 16:01) Hives Past Medical History - General Information source: Patient - Social History Smoking Status: Never Smoker Frequency of alcohol use: None Drug Abuse: None Family History: Reviewed & Not Pertinent - Past Medical History Cardiac Medical History: Denies: Hx Coronary Artery Disease, Hx Heart Attack, Hx Hypertension Pulmonary Medical History: Reports: Hx Asthma - CHILD, Hx Pneumonia - 2007 Denies: Hx Bronchitis, Hx COPD Neurological Medical History: Reports: Hx Migraine. Denies: Hx Cerebrovascular Accident, Hx Seizures Renal/ Medical History: Denies: Hx Peritoneal Dialysis Musculoskeletal Medical History: Denies Hx Arthritis, Reports Hx Musculoskeletal Trauma Past Surgical History: Reports: Hx Oral Surgery, Hx Orthopedic Surgery - RIGHT SHOULDER - Immunizations Immunizations up to date: Yes Hx Diphtheria, Pertussis, Tetanus Vaccination: Yes Review of Systems - Review of Systems Constitutional: See HPI, Chills, Diaphoresis EENT: No symptoms reported Cardiovascular: denies: Chest pain, Palpitations, Heart racing, Orthopnea, Dyspnea, Syncope, Dizziness Respiratory: denies: Cough, Short of breath Gastrointestinal: denies: Abdominal pain, Diarrhea, Nausea, Vomiting Musculoskeletal: See HPI, Back pain Neurological/Psychological: denies: Headaches, Numbness, Tingling -: Yes All other systems reviewed and negative Physical Exam - Vital signs Vitals: Resp Pulse Ox 10 L 100 01/04/19 16:10 01/04/19 16:10 Selected Entries 01/04/19 01/04/19 01/04/19 16:10 16:11 17:00 Heart Rate ( 98 104 Monitors) Respiratory 12 14 Rate Blood Pressure 126/74 H 113/71 Blood Pressure 91 85 Mean O2 Sat by Pulse 100 99 Oximetry 01/04/19 20:23 Heart Rate ( 106 Monitors) Respiratory 16 Rate Blood Pressure 130/82 H Blood Pressure 98 Mean O2 Sat by Pulse 100 Oximetry Interpretation: Normal - General General appearance: Appears well, Alert In distress: None - HEENT Head: Normocephalic, Atraumatic Eyes: Normal Pupils: PERRL - Respiratory Respiratory status: No respiratory distress Chest status: Nontender Breath sounds: Normal Chest palpation: Normal - Cardiovascular Rhythm: Regular Heart sounds: Normal auscultation Murmur: No - Abdominal Inspection: Normal Distension: No distension Bowel sounds: Normal Tenderness: Nontender Organomegaly: No organomegaly - Back Back: Tender - noted incision site to the lower lumbar spine There is some f ullness and increased TTP over the incision at the more superior aspect of it. Suspect there is an underlying seroma here. There no purulent drainage, no streaking erythemat, no step off or deformity. negative SLR bilaterally. - Extremities General upper extremity: Normal inspection, Nontender, Normal color, Normal ROM, Normal temperature General lower extremity: Normal inspection, Nontender, Normal color, Normal ROM, Normal temperature, Normal weight bearing - Neurological Neuro grossly intact: Yes Cognition: Normal Orientation: AAOx4 Sharron Coma Scale Eye Opening: Spontaneous Sharron Coma Scale Verbal: Oriented Saline Coma Scale Motor: Obeys Commands Saline Coma Scale Total: 15 Speech: Normal Motor strength normal: LUE, RUE, LLE, RLE Sensory: Normal - Psychological Associated symptoms: Normal affect, Normal mood - Skin Skin Temperature: Warm Skin Moisture: Dry Skin Color: Normal, Other - see back Course - Re-evaluation Re-evalutation: 01/04/19 20:[address] Galindo -- field application engineer and partnered with Dr. Murphy -- patient's neurosurgeon. We discussed patient's complaints, clinical exam findings. Agrees patient does not need ABx. We discussed labs and CT findings. Asked for me to get the patient to call the office tomorrow and be seen by Friday. Updated patient on the plan and she agrees. - Vital Signs Vital signs: Temp Pulse Resp BP Pulse Ox 16 130/82 H 100 01/04/19 20:23 01/04/19 20:23 01/04/19 20:23 - Laboratory Result Diagrams: 01/04/19 15:49 01/04/19 15:49 Laboratory results interpreted by me: 01/04/19 01/04/19 15:49 15:49 MCH 26.5 L RDW 15.0 H AST 43 H Total Protein 8.3 H Discharge - Discharge Clinical Impression: Post-op pain Condition: Stable Disposition: HOME, SELF-CARE Instructions: Low Back Pain ([facility]) Additional Instructions: CALL YOUR NEUROSURGEON'S OFFICE TOMORROW. TAKE TORADOL WITH YOUR PERCOCET. RETURN IF WORSENING SYMPTOMS. Prescriptions: Ketorolac Tromethamine [Toradol 10 mg Tablet] 10 mg PO Q8HP PRN #24 tablet PRN Reason: Forms: Return to Work Referrals: ROSE MARY CARPENTER PA-C [PHYSICIAN [facility] [employer]] - Follow up in 1 week
--- NOTE | 2019-01-04 19:13 | RADIOLOGY REPORT (SQ) ---
EXAM DESCRIPTION: CT LUMBAR SPINE WITH COMPLETED DATE/TIME: 01/04/2019 5:27 pm REASON FOR STUDY: incision site pain COMPARISON: None. TECHNIQUE: Thin-section images were obtained through the lumbar spine with sagittal and coronal renu nstructions following intravenous contrast administration. CONTRAST TYPE AND DOSE: 100 mL Isovue 350 RENAL FUNCTION: GFR > 60. LIMITATIONS: None. FINDINGS: Postsurgical changes are present in the right L5 posterior soft tissues from laminectomy- microdiscectomy. No rim enhancing fluid collection is identified. No acute osseous finding. Small amount of calcification in the margin of the L5-S1 right neural fora roshni portion of the disc. IMPRESSION: Postsurgical changes are present in the right L5 posterior soft tissues from laminectomy - microdiscectomy. No rim enhancing fluid collection is identified. COMMENT: Exclude infection on clinical grounds. TECHNICAL DOCUMENTATION: JOB ID: [id number] 2010 [employer]- All Rights Reserved Reading location - IP/workstation name: [email or web address]
[2019-01-04] MEDS ORDERED: KETOROLAC TROMETHAMINE INJ/PF 30 MG/1 ML SDV IV ONE (20:38)
[2019-01-04 20:46] VITALS: BP 130/82
== END 2019-01-04 20:48 | disposition home or self-care (01) ==
LOC: ER 15:22
DX: G89.18 Other acute postprocedural pain (principal); M54.5 Low back pain; Z88.0 Allergy status to penicillin; Z88.2 Allergy status to sulfonamides
CPT/HCPCS: 99284; 96374; 36415; 85025; 80053; 81001; 72132; J1885

== ENCOUNTER 2019-01-11 02:48 | Emergency (ER) | payer BC ==
[2019-01-11] MEDS ORDERED: PROCHLORPERAZINE EDISYLATE INJ 10 MG/2 ML VIAL IV ONE (03:05)
[2019-01-11] MEDS ORDERED: RINGERS SOLUTION,LACTATED 1,000 ML IV ONE ×2 (03:06→04:53)
[2019-01-11] MEDS ORDERED: DIPHENHYDRAMINE HCL 50 MG/ML VIAL IV ONE (03:06)
--- NOTE | 2019-01-11 03:09 | ER Document Report ---
ED General - General Chief Complaint: General Weakness Stated Complaint: WEAKNESS,LOW BLOOD PRESSURE Time Seen by Provider: 01/11/19 02:56 Primary Care Provider: NIK RAI FNP-C [Primary Care Provider] - Follow up tomorrow TRAVEL OUTSIDE OF THE [place] IN LAST 30 DAYS: No - HPI Notes: 33-year-old female with a history of L5 laminectomy at an outside facility several weeks ago now presents with overall weakness and not feeling well. Patient was seen here with a similar presentation approximate 1 week ago. At that time she underwent extensive laboratory work-up which was unremarkable. There was some question or concern for seroma or infection so she underwent CT imaging of her lumbar spine region using IV contrast. There was no evidence of abscess or definitive fluid collection or obvious infection. Surgically followed up with her neurosurgeon and was supposed to have labs drawn here in [place] tomorrow and follow back up on Friday. She states that since last week she overall just felt weak, not well. The last several days he developed some intermittent pleuritic chest pain and cough. Moderate intensity, gradual onset, nonradiating. No measured fever. Modifying modifying no other modifying factors no other associated symptoms no other provocative or palliative factors. - Related Data Allergies/Adverse Reactions: amoxicillin [Amoxicillin] Allergy (Intermediate, Verified 07/20/18 15:21) Hives Penicillins Allergy (Intermediate, Verified 07/20/18 15:21) Hives Sulfa (Sulfonamide Antibiotics) Allergy (Intermediate, Verified 07/20/18 16:01) Hives Past Medical History - Social History Smoking Status: Unknown if Ever Smoked Family History: Reviewed & Not Pertinent - Medical History Notes: Includes recent spinal surgery - Past Medical History Cardiac Medical History: Denies: Hx Coronary Artery Disease, Hx Heart Attack, Hx Hypertension Pulmonary Medical History: Reports: Hx Asthma - CHILD, Hx Pneumonia - 2007 Denies: Hx Bronchitis, Hx COPD Neurological Medical History: Reports: Hx Migraine. Denies: Hx Cerebrovascular Accident, Hx Seizures Renal/ Medical History: Denies: Hx Peritoneal Dialysis Musculoskeletal Medical History: Denies Hx Arthritis, Reports Hx Musculoskeletal Trauma Past Surgical History: Reports: Hx Oral Surgery, Hx Orthopedic Surgery - RIGHT SHOULDER - Immunizations Immunizations up to date: Yes Hx Diphtheria, Pertussis, Tetanus Vaccination: Yes Review of Systems - Review of Systems Notes: Review of systems as in the history of present illness, otherwise negative x 10 systems. Physical Exam - Vital signs Vitals: Temp Pulse Resp BP Pulse Ox 98.4 F 88 18 109/57 L 97 01/11/19 02:53 01/11/19 02:53 01/11/19 02:53 01/11/19 02:53 01/11/19 02:53 - Notes Notes: General: Well developed . HEENT: Normocephalic, atraumatic. Pupils equal round reactive to light. No JVD. Chest: No trauma. Respiratory: Good air exchange, normal excursion. Cardiac: Regular rhythm. No murmurs or gallops. Abdomen: Soft, benign. Nondistended. Nontender. Back: No asymmetry or gross abnormality. Surgical site is clean dry and intact, no edema erythema or fluid collection noted. Motor: Normal tone, power is 4+ out of 5 and symmetric Neurologic: Alert, nonfocal. Cranial nerves II-12 are intact. Sensation intact. DTRs 1+ and symmetric in lower extremities. Vascular: Well perfused. Normal peripheral pulses. Skin: No petechiae or purpura. Course - Re-evaluation Re-evalutation: 01/11/19 03:10 Well-appearing female with somewhat vague symptoms of generalized weakness and not feeling well. Some associated pleuritic chest pain which is of concern. Would consider underlying venous thromboembolism, electrolyte abnormality, dehydration, infectious etiology or other etiology. Plan proceed with conference of laboratory evaluation, x-ray, fluids, antiemetic treatment, reevaluate. 01/11/19 05:46 Patient labs reviewed, CBC unremarkable except for chronic anemia, chemistries unremarkable. Urine test urinalysis is currently pending. Chest x-ray was unremarkable. CT imaging is currently pending final read. Patient does feel somewhat better, is received IV fluids, blood pressure is 100/73. When questioned again, she indicates her biggest reason for coming in was because she was concerned about her chest pain and the possibility of a blood clot in her lungs. She also complained of being sore all over. CT scan shows no evidence of acute pulmonary embolism or acute abnormality. Blood pressure is normalized, l she has no fever, no abdominal tenderness, no urinary symptoms, no other sign or source of infection. Discharge home will increase hydration, follow-up as discussed. Patient slept comfortably throughout the majority of her course in the ED. 01/11/19 05:53 01/11/19 05:54 - Vital Signs Vital signs: Temp Pulse Resp BP Pulse Ox 98.4 F 88 18 109/57 L 97 01/11/19 02:53 01/11/19 02:53 01/11/19 02:53 01/11/19 02:53 01/11/19 02:53 - Laboratory Result Diagrams: 01/11/19 03:10 01/11/19 03:10 Laboratory results interpreted by me: 01/11/19 01/11/19 03:10 03:10 Hgb 11.1 L Hct 33.6 L MCV 79 L MCH 26.1 L RDW 15.3 H D-Dimer 0.99 H Discharge - Discharge Clinical Impression: Weakness Chest pain Qualifiers: Chest pain type: other chest pain Qualified Code(s): R07.89 - Other chest pain; R07.8 - Other chest pain Condition: Stable Disposition: HOME, SELF-CARE Instructions: Chest Pain of Unclear Cause ([facility]), Weakness ([facility]) Referrals: NIK RAI FNP-C [Primary Care Provider] - Follow up tomorrow
--- NOTE | 2019-01-11 03:30 | RADIOLOGY REPORT (SQ) ---
EXAM DESCRIPTION: X-ray single view chest. CLINICAL HISTORY: 33 years Female, Chest pain COMPARISON: 07/10/2016 at 6:06 PM TECHNIQUE: Single portable x-ray view of the chest performed on 01/11/2019 at 3:14 AM FINDINGS: The lungs are well expanded and are clear. There is no evidence of a pneumothorax. The cardiac silhouette is normal in size and configuration. The mediastinal contours are normal. No acute osseous abnormality is identified. No focal soft tissue abnormalities are seen. Lines and tubes: None. IMPRESSION: No evidence of acute intrathoracic disease.
[2019-01-11 04:17] LABS: ABSOLUTE EOSINOPHILS # (AUTO) 0.1 10^3/uL (0.0-0.6); ABSOLUTE MONOCYTES (AUTO) 0.6 10^3/uL (0.1-1.4); ABSOLUTE NEUT (AUTO) 4.2 10^3/uL (1.7-8.2); BASOPHILS % (AUTO) 0.6 % (0-2); EOSINOPHILS % (AUTO) 1.6 % (0-6); HEMATOCRIT 33.6 % (36.0-47.0); HEMOGLOBIN 11.1 g/dL (12.0-15.5); LYMPHOCYTES % (AUTO) 28.2 % (13-45); MEAN CORPUSCULAR HEMOGLOBIN 26.1 pg (27.0-33.4); MEAN CORPUSCULAR HGB CONC 32.9 g/dL (32.0-36.0); MEAN CORPUSCULAR VOLUME 79 fl (80-97); MONOCYTES % (AUTO) 8.9 % (3-13); PLATELET COUNT 365 10^3/uL (150-450); RED BLOOD COUNT 4.24 10^6/uL (3.72-5.28); RED CELL DISTRIBUTION WIDTH 15.3 % (11.5-14.0); SEGMENTED NEUTROPHILS % (AUTO) 60.7 % (42-78); TOTAL CELLS COUNTED % (AUTO) 100 %
[2019-01-11 04:36] LABS: ANION GAP 8 (5-19); BLOOD UREA NITROGEN 13 mg/dL (7-20); CALCIUM 8.9 mg/dL (8.4-10.2); CARBON DIOXIDE 28 mmol/L (22-30); CHLORIDE 101 mmol/L (98-107); GLUCOSE 97 mg/dL (75-110); POTASSIUM 4.3 mmol/L (3.6-5.0)
--- NOTE | 2019-01-11 05:43 | RADIOLOGY REPORT (SQ) ---
CT angiogram chest with contrast on 01/11/2019 at 5:12 AM CLINICAL INDICATION: Pleuritic chest pain, elevated d-dimer TECHNIQUE: Multiple axial images are obtained throughout the chest following the administration of IV contrast. Computer generated 3D reconstructions/MIPS were performed. This exam was performed according to our departmental dose-optimization program, which includes automated exposure control, adjustment of the mA and/or kV according to patient size and/or use of iterative reconstruction technique. Total DLP is 731.01 mGy*cm. COMPARISON: None FINDINGS: There is no thoracic aortic aneurysm or dissection. Visualized abdomen is unremarkable. There is no pleural or pericardial effusion. There is no thoracic adenopathy. There are no filling defects within the pulmonary arteries to suggest pulmonary embolus. There is mild bilateral dependent and basilar atelectasis. Small centrally calcified granuloma is noted in the right lung base. The lungs are otherwise clear. No bony abnormality is noted. IMPRESSION: 1. No evidence of pulmonary embolus. 2. No acute abnormality.
[2019-01-11 06:06] VITALS: BP 100/73
--- NOTE | 2019-01-11 07:58 | EKG REPORT ---
SEVERITY:- NORMAL ECG - SINUS RHYTHM : Confirmed by: Shelly Lazar 11-Jan-2019 07:57:19
== END 2019-01-11 06:10 | disposition home or self-care (01) ==
LOC: ER 02:48
DX: R07.81 Pleurodynia (principal); R53.1 Weakness; R05 Cough; D64.9 Anemia, unspecified; Z98.890 Other specified postprocedural states; Z88.0 Allergy status to penicillin; Z88.2 Allergy status to sulfonamides; Z87.01 Personal history of pneumonia (recurrent)
CPT/HCPCS: 93005; 36415; 85025; 80048; 85379; 71045; 71275; 93010; J1200; J0780; J7120; 96361; 96374; 96375; 99285

== ENCOUNTER → 2019-02-09 | Outpatient (CLI) | payer BC ==
[2019-02-09 14:39] LABS: HEMATOCRIT 36.2 % (36.0-47.0); HEMOGLOBIN 12.2 g/dL (12.0-15.5); MEAN CORPUSCULAR HEMOGLOBIN 26.4 pg (27.0-33.4); MEAN CORPUSCULAR HGB CONC 33.8 g/dL (32.0-36.0); MEAN CORPUSCULAR VOLUME 78 fl (80-97); PLATELET COUNT 358 10^3/uL (150-450); RED BLOOD COUNT 4.65 10^6/uL (3.72-5.28); WHITE BLOOD COUNT 8.6 10^3/uL (4.0-10.5)
[2019-02-09 15:17] LABS: ERYTHROCYTE SEDIMENTATION RATE 22 mm/hr (0-20)
--- NOTE | 2019-02-09 16:23 | RADIOLOGY REPORT (SQ) ---
EXAM DESCRIPTION: L SPINE 2 VIEWS COMPLETED DATE/TIME: 02/09/2019 2:17 pm REASON FOR STUDY: LUMBAR RADICULOPATHY COMPARISON: 04/29/2018 NUMBER OF VIEWS: Two views. TECHNIQUE: AP and lateral radiographic images acquired of the lumbar spine. LIMITATIONS: None. FINDINGS: MINERALIZATION: Normal. SEGMENTATION: Normal. No transitional anatomy. ALIGNMENT: Normal. VERTEBRAE: Maintained height. No fracture or worrisome bone lesion. DISCS: Preserved height. No significant osteophytes or end plate irregularity. POSTERIOR ELEMENTS: Pedicles and facets are intact. No pars defect or posterior arch defects. HARDWARE: None in the spine. PARASPINAL SOFT TISSUES: Normal. PELVIS: Intact as visualized. No fractures or worrisome bone lesions. SI joints intact. OTHER: No other significant finding. IMPRESSION: No acute bony abnormality. No significant degenerative change. TECHNICAL DOCUMENTATION: JOB ID: [id number] [employer]- All Rights Reserved Reading location - IP/workstation name: [email or web address]
--- NOTE | 2019-02-09 16:24 | RADIOLOGY REPORT (SQ) ---
EXAM DESCRIPTION: L SPINE FLEX/EXT ONLY COMPLETED DATE/TIME: 02/09/2019 2:17 pm REASON FOR STUDY: LUMBAR RADICULOPATHY COMPARISON: None. NUMBER OF VIEWS: Two view. TECHNIQUE: Lateral views of the lumbar spine with flexion and extension. LIMITATIONS: None. FINDINGS: MINERALIZATION: Normal. ALIGNMENT: Normal. FLEXION/EXTENSION: No instability. VERTEBRAE: Maintained height. No fracture or worrisome bone lesion. DISCS: Preserved height. No significant osteophytes or end plate irregularity. POSTERIOR ELEMENTS: Pedicles and facets are intact. No pars defect or posterior arch defects. Mild lower lumbar facet arthropathy. HARDWARE: None in the spine. OTHER: No other significant finding. IMPRESSION: No evidence of acute bony abnormality. Mild lower lumbar facet arthropathy. No instability with flexion or extension. TECHNICAL DOCUMENTATION: JOB ID: [id number] [employer]- All Rights Reserved Reading location - IP/workstation name: [email or web address]
== END ==
LOC: RAD 13:51
PROVIDERS: ATTEND Specialist
DX: M54.5 Low back pain (principal); M54.16 Radiculopathy, lumbar region
CPT/HCPCS: 36415; 72100; 72120; 85027; 85652

== ENCOUNTER → 2019-02-15 | Outpatient (CLI) | payer BC ==
--- NOTE | 2019-02-16 15:21 | RADIOLOGY REPORT (SQ) ---
EXAM DESCRIPTION: MRI LUMBAR SPINE COMBO COMPLETED DATE/TIME: 02/15/2019 9:00 pm REASON FOR STUDY: (M96.1)POSTLAMINECTOMY SYNDROME, NOT ELSEWHERE CLASSIFIED;(N39.42)INCONTINE M96.1 POSTLAMINECTOMY SYNDROME, NOT ELSEWHERE CLASSIFIED N39.42 INCONTINENCE WITHOUT SENSORY AWARENESS COMPARISON: None. TECHNIQUE: Sagittal and Axial imaging includes T1, T1 post gadolinium, T2, STIR and gradient echo se quences. Coronal T2/HASTE imaging. CONTRAST TYPE AND DOSE: 10 mL Dotarem. RENAL FUNCTION: Not indicated. ACR Type II contrast agent associated with few, if any, unconfounded cases of NSF LIMITATIONS: None. FINDINGS: VISUALIZED UPPER ABDOMEN: Limited evaluation. No acute or suspicious findings suggested. SEGMENTATION: No transitional anatomy. The lowest well-developed disc space is labeled L5-S1. ALIGNMENT: Anatomic. VERTEBRAE: Intact. No fractures. BONE MARROW: Normal. No marrow replacement or reactive changes. DISC SIGNAL: Desiccation L5-S1. POSTERIOR ELEMENTS: See L5-S1 below. HARDWARE: None in the spine. CORD AND CONUS: Normal in size and signal intensity. Conus at the appropriate level. SOFT TISSUES: No aortic aneurysm seen. No bulky retroperitoneal adenopathy or mass. No paraspinal mas s or fluid. L1-L2: No significant spinal stenosis or exit foraminal stenosis. L2-L3: No significant spinal stenosis or exit foraminal stenosis. L3-L4: No significant spinal stenosis or exit foraminal stenosis. L4-L5: No significant spinal stenosis or exit foraminal stenosis. L5-S1: Status post right laminectomy. Enhancing scar tissue. No evidence of postop complication or recurrent disc. No significant stenosis. LOWER THORACIC: Incompletely imaged. No stenosis seen. SACRUM: Visualized upper sacrum intact. ENHANCEMENT: No abnormal enhancement. OTHER: No other significant findings. IMPRESSION: Postsurgical changes L5-S1. No evidence of postoperative complication. TECHNICAL DOCUMENTATION: JOB ID: [id number]- All Rights Reserved Reading location - IP/workstation name: [email or web address]
== END ==
LOC: RAD 19:54
PROVIDERS: ATTEND Physician Assistant
DX: M96.1 Postlaminectomy syndrome, not elsewhere classified (principal); N39.42 Incontinence without sensory awareness
CPT/HCPCS: 72158; A9576

== ENCOUNTER 2019-05-21 19:22 | Emergency (ER) | payer SELFPAY ==
[2019-05-21] MEDS ORDERED: PREDNISONE 20 MG TABLET PO ONE (20:15)
--- NOTE | 2019-05-21 20:16 | ER Document Report ---
ED Medical Screen (RME) - General Chief Complaint: Back Injury Stated Complaint: FALL Time Seen by Provider: 05/21/19 20:08 Primary Care Provider: NIK RAI FNP-C [Primary Care Provider] - Follow up as needed Notes: HPI: 34-year-old female presenting to the emergency department for evaluation of injury to the low back. Patient states she had surgery in [place] in November 2018 where they shaved off some bone spurs, decompressed her sciatic nerve on the right where to been causing numbness and tingling in the right leg. Patient had a mechanical slip and fall down 8 stairs 2 days ago landing on her back on the stairs. She complains of increasing pain with some numbness tingling down both anterior legs intermittently. She reports some urinary hesitancy. No fever no abdominal pain no other injuries. I have greeted and performed a rapid initial assessment of this patient. A comprehensive ED assessment and evaluation of the patient, analysis of test results and completion of the medical decision making process will be conducted by additional ED providers PHYSICAL EXAMINATION: GENERAL: Well-appearing, well-nourished and in mild acute distress. HEAD: Atraumatic, normocephalic. EYES: sclera anicteric, conjunctiva are normal. ENT: Moist mucous membranes. NECK: Normal range of motion LUNGS: Normal work of breathing HEART: 2+ radial pulses bilaterally ABD: limited by positioning for exam in triage. Back: No visible or palpable step-off. Mild tenderness over the lower thoracic spine and through the lumbar spinal region on palpation EXTREMITIES: no pitting or edema. No cyanosis. NEUROLOGICAL: No focal neurological deficits. Moves all extremities spontaneously and on command. No saddle anesthesia on exam PSYCH: Normal mood, normal affect. SKIN: Warm, Dry, normal turgor, no rashes or lesions noted. Discussed with Dr. Le, will start with x-ray imaging and urinalysis TRAVEL OUTSIDE OF THE [place] IN LAST 30 DAYS: No - Related Data Allergies/Adverse Reactions: amoxicillin [Amoxicillin] Allergy (Intermediate, Verified 05/21/19 20:08) Hives Penicillins Allergy (Intermediate, Verified 05/21/19 20:08) Hives Sulfa (Sulfonamide Antibiotics) Allergy (Intermediate, Verified 05/21/19 20:08) Hives Past Medical History - Social History Family history: Reviewed & Not Pertinent - Past Medical History Cardiac Medical History: Denies: Hx Coronary Artery Disease, Hx Heart Attack, Hx Hypertension Pulmonary Medical History: Reports: Hx Asthma - CHILD, Hx Pneumonia - 2007 Denies: Hx Bronchitis, Hx COPD Neurological Medical History: Reports: Hx Migraine. Denies: Hx Cerebrovascular Accident, Hx Seizures Renal/ Medical History: Denies: Hx Peritoneal Dialysis Musculoskeltal Medical History: Denies Hx Arthritis, Reports Hx Musculoskeletal Trauma Past Surgical History: Reports: Hx Oral Surgery, Hx Orthopedic Surgery - RIGHT SHOULDER - Immunizations Immunizations up to date: Yes Hx Diphtheria, Pertussis, Tetanus Vaccination: Yes Physical Exam - Vital signs Vitals: Temp Pulse Resp BP Pulse Ox 98.3 F 107 H 20 131/83 H 100 05/21/19 19:32 05/21/19 19:32 05/21/19 19:32 05/21/19 19:32 05/21/19 19:32 Course - Vital Signs Vital signs: Temp Pulse Resp BP Pulse Ox 98.3 F 107 H 20 131/83 H 100 05/21/19 19:32 05/21/19 19:32 05/21/19 19:32 05/21/19 19:32 05/21/19 19:32 Doctor's Discharge - Discharge Referrals: NIK RAI FNP-C [Primary Care Provider] - Follow up as needed
[2019-05-21] MEDS ORDERED: PREDNISONE 20 MG TABLET ONE (21:05)
--- NOTE | 2019-05-21 21:11 | RADIOLOGY REPORT (SQ) ---
EXAM DESCRIPTION: XR LUMBAR SPINE ANTEROPOSTERIOR, LATERAL, AND OBLIQUES COMPLETED DATE/TME: 05/21/2019 20:14 CLINICAL HISTORY: 34 years, Female, fall low back pain COMPARISON: February 09, 2019 NUMBER OF VIEWS: 5 TECHNIQUE: AP lateral both obliques LIMITATIONS: None. FINDINGS: Alignment is anatomic. No acute fracture. Joint spaces are within normal limits for age. Surrounding soft tissues there is a postsurgical change from tubal ligation IMPRESSION: No acute bony injury is seen to the lumbar spine copyright 2010 [employer]- All Rights Reserved
--- NOTE | 2019-05-21 21:13 | RADIOLOGY REPORT (SQ) ---
EXAM DESCRIPTION: XR THORACIC SPINE 2 VIEWS COMPLETED DATE/TME: 05/21/2019 20:14 CLINICAL HISTORY: 34 years, Female, ball back pain COMPARISON: Prior CT chest dated 01/11/2019; plain radiographs from 04/29/2018 NUMBER OF VIEWS: Two TECHNIQUE: Frontal and lateral radiograph were obtained LIMITATIONS: None. FINDINGS: There is mild leftward curvature of the upper thoracic spine. Otherwise, thoracic vertebral body heights and alignments appear maintained. Intervertebral disc spaces are also well maintained. No acute fracture or malalignment is appreciated. Visualized lungs are clear. IMPRESSION: No acute osseous anomaly. Mild leftward curvature of the thoracic spine. copyright 2010 [email or web address]- All Rights Reserved
[2019-05-21 22:59] LABS: APPEARANCE,URINE SLIGHTLY-CLOUDY; BILIRUBIN,URINE NEGATIVE (NEGATIVE); COLOR,URINE YELLOW; GLUCOSE, URINE 150 mg/dL (NEGATIVE); KETONES,URINE NEGATIVE (NEGATIVE); LEUKOCYTE ESTERASE,URINE NEGATIVE (NEGATIVE); NITRITE,URINE NEGATIVE (NEGATIVE); PROTEIN,URINE 30 mg/dL (NEGATIVE); UROBILINOGEN,URINE NEGATIVE mg/dL (<2.0)
[2019-05-22] MEDS ORDERED: HYDROCODONE/ACETAMINOPHEN 5-325 MG (6 TAB/ER DISP) PO PRN (00:18)
[2019-05-22] MEDS ORDERED: PREDNISONE 20 MG TABLET PO ONE ×2 (00:18→01:12)
--- NOTE | 2019-05-22 01:04 | ER Document Report ---
Entered by GEOFFREY ARCINIEGA SCRIBE 05/21/19 1428 Acting as scribe for:NIK TOBAR IV, MD ED General - General Chief Complaint: Back Injury Stated Complaint: FALL Time Seen by Provider: 05/21/19 20:08 Primary Care Provider: NIK RAI FNP-C [NO LOCAL MD] - Follow up as needed Mode of Arrival: Ambulatory Information source: Patient Notes: This 34 year old female patient presents to the ED today with complaints of bilateral lower extremity numbness and tingling that has been ongoing since November 2018, but became progressively worse x2 days ago. Patient states that she had surgery in [place] in November 2018 where they shaved off some bone spurs and decompressed her sciatic nerve on the right which has been causing numbness and tingling in the right leg. Patient states that she had a mechanical slip and fall down 8 stairs x2 days ago landing on her back on the stairs. Patient complains of increasing pain with some numbness tingling down both anterior legs intermittently. Patient notes that she was seen at urgent care for her symptoms x1 day ago and was given x2 tablets of Prednisone, Voltaren, and Baclofen which provided no relief. Patient states that her right foot went completely numb while she was driving yesterday evening which prompted her visit to the ED tonight. Patient also notes that it feels like she is having "growing pains" in both of her calfs. Patient also reports urinary retention. Patient states that she "could drink more" in response to her fluid intake and notes that she doesn't really have time to stop and eat/drink when she works. Patient mentions that she has been having issues with perception, sleep, stress, and short-term memory. Patient notes that she takes x7-8 medications that include Zanaflex, Clonazepam, Ambien, and Lyrica on a daily basis and that they may contribute to her memory and sleep issues. Patient denies fever or abdominal pain. TRAVEL OUTSIDE OF THE [place] IN LAST 30 DAYS: No - Related Data Allergies/Adverse Reactions: amoxicillin [Amoxicillin] Allergy (Intermediate, Verified 05/21/19 20:08) Hives Penicillins Allergy (Intermediate, Verified 05/21/19 20:08) Hives Sulfa (Sulfonamide Antibiotics) Allergy (Intermediate, Verified 05/21/19 20:08) Hives Past Medical History - General Information source: Patient - Social History Smoking Status: Unknown if Ever Smoked Cigarette use (# per day): No Chew tobacco use (# tins/day): No Smoking Education Provided: No Family History: Reviewed & Not Pertinent Patient has suicidal ideation: No Patient has homicidal ideation: No Pulmonary Medical History: Reports: Hx Asthma - CHILD, Hx Pneumonia - 2007 Neurological Medical History: Reports: Hx Migraine Musculoskeletal Medical History: Reports Hx Musculoskeletal Trauma Past Surgical History: Reports: Hx Oral Surgery, Hx Orthopedic Surgery - RIGHT SHOULDER - Immunizations Immunizations up to date: Yes Hx Diphtheria, Pertussis, Tetanus Vaccination: Yes Review of Systems - Review of Systems Constitutional: See HPI. denies: Fever EENT: No symptoms reported Cardiovascular: No symptoms reported Respiratory: No symptoms reported Gastrointestinal: See HPI. denies: Abdominal pain Genitourinary: See HPI, Other - Hesitancy Female Genitourinary: No symptoms reported Musculoskeletal: See HPI, Back pain, Other - Bilateral leg numbness/tingling and pain Skin: No symptoms reported Hematologic/Lymphatic: No symptoms reported Neurological/Psychological: No symptoms reported -: Yes All other systems reviewed and negative Physical Exam - Vital signs Vitals: Temp Pulse Resp BP Pulse Ox 98.3 F 107 H 20 131/83 H 100 05/21/19 19:32 05/21/19 19:32 05/21/19 19:32 05/21/19 19:32 05/21/19 19:32 - General General appearance: Alert - HEENT Head: Normocephalic, Atraumatic Eyes: Normal Pupils: PERRL - Respiratory Respiratory status: No respiratory distress Chest status: Nontender Breath sounds: Normal Chest palpation: Normal - Cardiovascular Rhythm: Regular Heart sounds: Normal auscultation Murmur: No Friction rub: No Gallop: None auscultated - Abdominal Inspection: Normal Distension: No distension Bowel sounds: Normal Tenderness: Nontender - Abdomen soft Organomegaly: No organomegaly - Back Back: Normal, Nontender. No: Deformity/step-off - Extremities General upper extremity: Normal inspection General lower extremity: Normal inspection Notes: Patient is able to move upper and lower extremities without any apparent difficulty. - Neurological Neuro grossly intact: Yes Babinski reflex: Normal (flexor plantar) Knee - Reflex grade: 2 = Normal - Psychological Associated symptoms: Normal affect, Normal mood - Skin Skin Temperature: Warm Skin Moisture: Dry Skin Color: Normal Course - Re-evaluation Re-evalutation: 05/22/19 00:19 Results of ED MSE discussed with patient. All questions were answered prior to patient discharge. Emergency signs and symptoms, reasons to return to emergency department discussed with patient. - Vital Signs Vital signs: Temp Pulse Resp BP Pulse Ox 98.1 F 89 15 130/82 H 99 05/22/19 02:17 05/22/19 02:17 05/22/19 02:17 05/22/19 02:17 05/22/19 02:17 - Laboratory Laboratory results interpreted by me: 05/21/19 22:39 Urine Protein 30 H Urine Glucose (UA) 150 H Urine Blood LARGE H Discharge - Discharge Clinical Impression: Back contusion Qualifiers: Encounter type: initial encounter Laterality: unspecified laterality Qualified Code(s): S20.229A - Contusion of unspecified back wall of thorax, initial encounter Condition: Good Disposition: HOME, SELF-CARE Additional Instructions: Return to the Emergency Department without delay if any worse. HOME CARE INSTRUCTIONS & INFORMATION: Thank you for choosing us for your medical needs. We hope you're satisfied with the care you received. After you leave, you must properly care for your problem and, at the same time, observe its progress. Any condition can change. Some illnesses can change rapidly over hours or days. If your condition worsens, return to the Emergency Department or see your physician promptly. ABOUT YOUR X-RAYS AND EKG'S: If you had an EKG or X-rays taken, they have been read by the Emergency Physician. The X-rays and EKG's will also be read by a Radiologist or Patent Leather Sorter within 24 hours. If discrepancies are noted, you will be notified by telephone. Please be certain the ED has a correct telephone number & address where you can be reached. Also, realize that some fractures or abnormalities do not show up on initial X-rays. If your symptoms continue, see your physician. ABOUT YOUR LABORATORY TEST: If you had laboratory tests, the results have been reviewed by the Emergency Physician. Some test results (for example cultures) may not be available for several days. You will be contacted if any test result shows you need additional treatment. Please be certain the ED has a correct telephone number and address where you can be reached. ABOUT YOUR MEDICATIONS: You will receive instructions on how to take your me dicine on the prescription label you receive. Additional information may be provided by the Pharmacy. If you have questions afterwards, call the ED for clarification or further instructions. Some prescribed medications may cause drowsiness. Do not perform tasks such as driving a car or operating machinery without consulting your Pharmacist. If you feel you need a refill of pain medication, your condition will need re-evaluation. Please do not call for a refill of any medication. ABOUT YOUR SIGNATURE: Signature of this document acknowledges to followin. Understanding that you received emergency treatment and that you may be released before al medical problems are known or treated. Please be certain the ED has a correct phone number & address where you can be reached. 2. Acknowledgement that you will arrange for follow-up care as recommended. 3. Authorization for the Emergency Physician to provide information to your follow-up Physician in order to maximize your care. AT ANY TIME, IF YOUR SYMPTOMS CHANGE SIGNIFICANTLY OR WORSEN OR YOU DEVELOP NEW SYMPTOMS, RETURN TO THE EMERGENCY DEPARTMENT IMMEDIATELY FOR RE-EVALUATION. OUR GOAL IS TO PROVIDE EXCELLENT MEDICAL CARE! WE HOPE THAT WE HAVE MET YOUR EXPECTATIONS DURING YOUR EMERGENCY DEPARTMENT VISIT AND THAT YOU FEEL YOU HAVE RECEIVED EXCELLENT CARE! Contusion Your injury has resulted in a contusion -- a crushing of the deep tissues. No injury to important structures was detected during the physician's exam. Contusions vary in the amount of pain they cause, and in the length of time required for healing. Typically, the area will become bruised, and will remain painful to touch for two or three weeks. However, most patients are back to working and playing within a few days. After the initial period of rest and cold-packs, your symptoms (together with the doctor's recommendations) will determine how rapidly you can get back to full activity. Usually this means "do what feels okay, but don't do things that hurt." If re-examination was recommended, it's important to follow up as instructed. Call the doctor or return any time if pain increases, if swelling becomes severe, if you develop numbness or weakness in an injured extremity, or if any other alarming symptoms occur. Prescriptions: Prednisone [Deltasone 20 mg Tablet] 3 tab PO DAILY 4 Days tablet Referrals: NIK RAI FNP-C [NO LOCAL MD] - Follow up as needed I personally performed the services described in the documentation, reviewed and edited the documentation which was dictated to the scribe in my presence, and it accurately records my words and actions.
[2019-05-22 02:19] VITALS: BP 130/82
== END 2019-05-22 02:23 | disposition home or self-care (01) ==
LOC: ER 19:22
DX: S20.229A Contusion of unspecified back wall of thorax, initial encounter (principal); R20.0 Anesthesia of skin; W10.9XXA Fall (on) (from) unspecified stairs and steps, initial encounter; Z88.0 Allergy status to penicillin; Z88.2 Allergy status to sulfonamides
CPT/HCPCS: 99283; 81025; 81001; 72110; 72070; J7512 ×2

== ENCOUNTER 2019-06-15 20:00 | Emergency (ER) | payer BC ==
[2019-06-15 20:07] VITALS: BP 136/98
[2019-06-15] MEDS ORDERED: ONDANSETRON 4 MG TAB.RAPDIS PO ONE (20:26)
[2019-06-15] MEDS ORDERED: ACETAMINOPHEN 325 MG TABLET PO ONE (20:26)
--- NOTE | 2019-06-15 20:27 | ER Document Report ---
ED Medical Screen (RME) - General Chief Complaint: Leg Pain Stated Complaint: LEG PAIN Time Seen by Provider: 06/15/19 20:15 Primary Care Provider: ROSE MARY CARPENTER PA-C [Primary Care Provider] - Follow up as needed Information source: Patient Notes: Patient presents complaining of muscle spasms for the past 3 days. Patient states that she will primarily have spasms in the legs but she has had muscle spasms in the arms as well. Patient states she feels as though her symptoms are due to switching from oxycodone 10 mg to Nucynta last month. Patient states every time she takes Nucynta she feels as though this worsens her symptoms. Patient has a history of chronic back pain and states that she attempted to use various different muscle relaxers at home without improvement. Patient states she is tried Robaxin, Flexeril, baclofen, and Zanaflex. Patient states that she is also been nauseous. Patient states that her back pain is flaring up as well. Patient has Nucynta as well as Phenergan for nausea. Patient did not take her pain medicine or her nausea medicine this evening. Patient was seen at an urgent care this afternoon for her symptoms and was advised that they could not do anything for pain symptoms at the urgent care. They did give her antibiotics for dental pain. I have greeted and performed a rapid initial assessment of this patient. A comprehensive ED assessment and evaluation of the patient, analysis of test results and completion of the medical decision making process will be conducted by additional ED providers. TRAVEL OUTSIDE OF THE [place] IN LAST 30 DAYS: No - Related Data Allergies/Adverse Reactions: amoxicillin [Amoxicillin] Allergy (Intermediate, Verified 06/15/19 20:09) Hives Penicillins Allergy (Intermediate, Verified 06/15/19 20:09) Hives Sulfa (Sulfonamide Antibiotics) Allergy (Intermediate, Verified 06/15/19 20:09) Hives Past Medical History - Social History Frequency of alcohol use: None Drug Abuse: None Family history: Reviewed & Not Pertinent - Past Medical History Cardiac Medical History: Denies: Hx Coronary Artery Disease, Hx Heart Attack, Hx Hypertension Pulmonary Medical History: Reports: Hx Asthma - CHILD, Hx Pneumonia - 2007 Denies: Hx Bronchitis, Hx COPD Neurological Medical History: Reports: Hx Migraine. Denies: Hx Cerebrovascular Accident, Hx Seizures Renal/ Medical History: Denies: Hx Peritoneal Dialysis Musculoskeltal Medical History: Denies Hx Arthritis, Reports Hx Musculoskeletal Trauma Past Surgical History: Reports: Hx Oral Surgery, Hx Orthopedic Surgery - RIGHT SHOULDER - Immunizations Immunizations up to date: Yes Hx Diphtheria, Pertussis, Tetanus Vaccination: Yes Physical Exam - Vital signs Vitals: Temp Pulse Resp BP Pulse Ox 98.1 F 88 20 136/98 H 91 L 06/15/19 20:06 06/15/19 20:06 06/15/19 20:06 06/15/19 20:06 06/15/19 20:06 - General General appearance: Appears well, Alert Notes: No visible muscle spasms at this time - Back Back: Tender - Lower lumbar tenderness Course - Re-evaluation Re-evalutation: 06/15/19 20:26 Patient [address] herself here today. Patient advised that no sedating medication can be given at this time since she drove herself here. - Vital Signs Vital signs: Temp Pulse Resp BP Pulse Ox 98.1 F 88 20 136/98 H 91 L 06/15/19 20:06 06/15/19 20:06 06/15/19 20:06 06/15/19 20:06 06/15/19 20:06 Doctor's Discharge - Discharge Referrals: ROSE MARY CARPENTER PA-C [Primary Care Provider] - Follow up as needed
[2019-06-15 20:57] LABS: ABSOLUTE EOSINOPHILS # (AUTO) 0.1 10^3/uL (0.0-0.6); ABSOLUTE LYMPHOCYTES (AUTO) 1.7 10^3/uL (0.5-4.7); ABSOLUTE MONOCYTES (AUTO) 0.6 10^3/uL (0.1-1.4); ABSOLUTE NEUT (AUTO) 7.2 10^3/uL (1.7-8.2); BASOPHILS % (AUTO) 0.5 % (0-2); EOSINOPHILS % (AUTO) 0.8 % (0-6); HEMATOCRIT 42.3 % (36.0-47.0); HEMOGLOBIN 14.1 g/dL (12.0-15.5); LYMPHOCYTES % (AUTO) 17.9 % (13-45); MEAN CORPUSCULAR HEMOGLOBIN 26.2 pg (27.0-33.4); MEAN CORPUSCULAR HGB CONC 33.3 g/dL (32.0-36.0); MEAN CORPUSCULAR VOLUME 79 fl (80-97); MONOCYTES % (AUTO) 6.2 % (3-13); PLATELET COUNT 377 10^3/uL (150-450); RED BLOOD COUNT 5.38 10^6/uL (3.72-5.28); RED CELL DISTRIBUTION WIDTH 17.2 % (11.5-14.0); SEGMENTED NEUTROPHILS % (AUTO) 74.6 % (42-78); TOTAL CELLS COUNTED % (AUTO) 100 %; WHITE BLOOD COUNT 9.6 10^3/uL (4.0-10.5)
--- NOTE | 2019-06-15 21:19 | ER Document Report ---
ED General - General Chief Complaint: Leg Pain Stated Complaint: LEG PAIN Time Seen by Provider: 06/15/19 20:15 Primary Care Provider: ROSE MARY CARPENTER PA-C [Primary Care Provider] - Follow up as needed Notes: 34-year-old female presents emergency department complaining of spasming in her bilateral lower extremities for the past 3 to 4 days. Patient states that she will have a jerk or a muscle spasm in her thighs, she can see the muscle bunched up and then relax and then it is extremely painful for approximately 20 minutes afterwards and associated with tingling which then resolves. Patient states that she has always had pain since spinal surgery last year and had been tried on multiple muscle relaxers and she did try using some of her muscle relaxers over the past 3 to 4 days without any relief. Patient states she has tried "every muscle relaxer that exists." Patient states that she was recently changed to Nucynta from her usual oxycodone by her pain management doctor at [facility] on 05/27/2019. Patient spoke with Dr. Angel today and was told that they could discuss her symptoms on 06/23/2019. Patient denies bowel or bladder dysfunction, admits chronic constipation due to being on narcotics which is unchanged. Denies fevers or difficulty walking. TRAVEL OUTSIDE OF THE [place] IN LAST 30 DAYS: No - Related Data Allergies/Adverse Reactions: amoxicillin [Amoxicillin] Allergy (Intermediate, Verified 06/15/19 20:09) Hives Penicillins Allergy (Intermediate, Verified 06/15/19 20:09) Hives Sulfa (Sulfonamide Antibiotics) Allergy (Intermediate, Verified 06/15/19 20:09) Hives Past Medical History - General Information source: Patient - Social History Smoking Status: Never Smoker Frequency of alcohol use: None Drug Abuse: None Family History: Reviewed & Not Pertinent Patient has suicidal ideation: No Patient has homicidal ideation: No - Past Medical History Cardiac Medical History: Denies: Hx Coronary Artery Disease, Hx Heart Attack, Hx Hypertension Pulmonary Medical History: Reports: Hx Asthma - CHILD, Hx Pneumonia - 2007 Denies: Hx Bronchitis, Hx COPD Neurological Medical History: Reports: Hx Migraine. Denies: Hx Cerebrovascular Accident, Hx Seizures Renal/ Medical History: Denies: Hx Peritoneal Dialysis Musculoskeletal Medical History: Denies Hx Arthritis, Reports Hx Musculoskeletal Trauma Past Surgical History: Reports: Hx Oral Surgery, Hx Orthopedic Surgery - RIGHT SHOULDER - Immunizations Immunizations up to date: Yes Hx Diphtheria, Pertussis, Tetanus Vaccination: Yes Review of Systems - Review of Systems Constitutional: No symptoms reported EENT: No symptoms reported Gastrointestinal: Nausea - Patient states she always has nausea associated with pain, when the pain goes away the nausea goes away., Constipation Genitourinary: No symptoms reported Musculoskeletal: See HPI, Muscle pain, Muscle stiffness Neurological/Psychological: See HPI, Tingling - Only with muscle spasm. No new numbness or tingling when there are no muscle spasms. -: Yes All other systems reviewed and negative Physical Exam - Vital signs Vitals: Temp Pulse Resp BP Pulse Ox 98.1 F 88 20 136/98 H 91 L 06/15/19 20:06 06/15/19 20:06 06/15/19 20:06 06/15/19 20:06 06/15/19 20:06 Interpretation: Hypoxic - Notes Notes: GENERAL: Alert, interacts well. No acute distress. HEAD: Normocephalic, atraumatic EYES: Pupils equal, round and reactive to light, extraocular movements intact. ENT: Oral mucosa moist, tongue midline. NECK: Full range of motion, supple, trachea midline. LUNGS: Clear to auscultation bilaterally, no wheezes, rales or rhonchi, no respiratory distress. HEART: Regular rate and rhythm, no murmurs, gallops, rubs. ABDOMEN: Soft, nontender, nondistended, bowel sounds present in all 4 quadrants. EXTREMITIES: Moves all 4 extremities spontaneously, no edema, radial and dorsalis pedis pulses 2/4 bilaterally. No cyanosis. NEUROLOGICAL: Alert and oriented x3, normal speech, patellar DTRs 2+ bilaterally. Able to ambulate around the room without difficulty, no difficulty with balance. No saddle anesthesia. PSYCH: Normal mood, normal affect. SKIN: Warm, Dry, normal turgor, no rashes or lesions noted. Course - Re-evaluation Re-evalutation: 06/15/19 22:19 Patient states that she started taking clindamycin for a broken tooth prescribed by her dentist earlier today. States that she is due for a dose of clindamycin 300 mg by mouth. This has been ordered. 06/15/19 22:54 CBC unremarkable, BMP unremarkable, magnesium, potassium and CK are all normal, urinalysis shows small blood, 3 RBCs, trace leukocyte esterase but denies any dysuria or flank pain, 5 squamous epithelial cells, suspect this is contamination. Patient is able to ambulate without difficulty. I am awaiting a phone call back from Dr. Zana Carmichael who is on-call for [facility]. 06/15/19 23:[address] Zana Carmichael, states that I may go ahead and give her some oxycodone tonight to help and control her pain and that he would like her to come to the [place] office first thing tomorrow morning and he will see her in the office tomorrow. Patient will be discharged to home. 06/15/19 23:59 Patient cannot find a ride home so she cannot be given oxycodone here. Patient will be given a dispense pack of Warren and instructed to take 1 to 2 tablets every 4-6 hours as needed for breakthrough pain. - Vital Signs Vital signs: Temp Pulse Resp BP Pulse Ox 98.1 F 88 20 136/98 H 99 06/15/19 20:06 06/15/19 20:06 06/15/19 20:06 06/15/19 20:06 06/15/19 21:31 - Laboratory Result Diagrams: 06/15/19 20:30 06/15/19 20:30 Laboratory results interpreted by me: 06/15/19 06/15/19 20:30 22:00 RBC 5.38 H MCV 79 L MCH 26.2 L RDW 17.2 H Urine Blood SMALL H Ur Leukocyte Esterase TRACE H Discharge - Discharge Clinical Impression: Muscle spasms of both lower extremities Chronic back pain Qualifiers: Back pain location: low back pain Back pain laterality: bilateral Sciatica presence: without sciatica Qualified Code(s): M54.5 - Low back pain; G89.29 - Other chronic pain Condition: Stable Disposition: HOME, SELF-CARE Additional Instructions: You may take 1 to 2 tablets of the Warren every 4-6 hours as needed for pain that is not controlled by your Nucynta. Please go to Dr. Zana Gay's [place] office tomorrow morning first thing in the morning. They will work you in sometime in the morning. You will be seeing Dr. Zana Carmichael. Referrals: ROSE MARY CARPENTER PA-C [Primary Care Provider] - Follow up as needed
[2019-06-15 21:31] LABS: ANION GAP 12 (5-19); BLOOD UREA NITROGEN 11 mg/dL (7-20); CALCIUM 9.9 mg/dL (8.4-10.2); CARBON DIOXIDE 26 mmol/L (22-30); CHLORIDE 102 mmol/L (98-107); CREATINE KINASE 38 U/L (30-135); GLUCOSE 86 mg/dL (75-110); POTASSIUM 4.2 mmol/L (3.6-5.0)
[2019-06-15] MEDS ORDERED: CLINDAMYCIN HCL 150 MG CAPSULE PO ONE (22:16)
[2019-06-15 22:24] LABS: APPEARANCE,URINE SLIGHTLY-CLOUDY; BILIRUBIN,URINE NEGATIVE (NEGATIVE); COLOR,URINE YELLOW; GLUCOSE, URINE NEGATIVE (NEGATIVE); KETONES,URINE NEGATIVE (NEGATIVE); LEUKOCYTE ESTERASE,URINE TRACE (NEGATIVE); NITRITE,URINE NEGATIVE (NEGATIVE); PROTEIN,URINE NEGATIVE (NEGATIVE); URINE SPECIFIC GRAVITY 1.009; UROBILINOGEN,URINE NEGATIVE mg/dL (<2.0)
[2019-06-15] MEDS ORDERED: HYDROCODONE/ACETAMINOPHEN 5-325 MG (6 TAB/ER DISP) PO PRN (23:58)
== END 2019-06-16 00:12 | disposition home or self-care (01) ==
LOC: ER 20:00
DX: M62.838 Other muscle spasm (principal); M54.5 Low back pain; G89.29 Other chronic pain; M79.604 Pain in right leg; M79.605 Pain in left leg; Z79.899 Other long term (current) drug therapy; Z88.2 Allergy status to sulfonamides; Z88.0 Allergy status to penicillin; Z88.1 Allergy status to other antibiotic agents; J45.909 Unspecified asthma, uncomplicated
CPT/HCPCS: 99283; 36415; 82550; 83735; 84703; 85025; 80048; 81001; S0119

== ENCOUNTER 2019-06-20 20:40 | Emergency (ER) | payer BC ==
[2019-06-20 22:48] LABS: ABSOLUTE LYMPHOCYTES (AUTO) 1.6 10^3/uL (0.5-4.7); ABSOLUTE MONOCYTES (AUTO) 1.3 10^3/uL (0.1-1.4); ABSOLUTE NEUT (AUTO) 15.3 10^3/uL (1.7-8.2); BASOPHILS % (AUTO) 0.1 % (0-2); HEMATOCRIT 41.4 % (36.0-47.0); HEMOGLOBIN 13.8 g/dL (12.0-15.5); LYMPHOCYTES % (AUTO) 8.9 % (13-45); MEAN CORPUSCULAR HEMOGLOBIN 26.2 pg (27.0-33.4); MEAN CORPUSCULAR HGB CONC 33.3 g/dL (32.0-36.0); MEAN CORPUSCULAR VOLUME 79 fl (80-97); MONOCYTES % (AUTO) 7.1 % (3-13); PLATELET COUNT 359 10^3/uL (150-450); RED BLOOD COUNT 5.26 10^6/uL (3.72-5.28); RED CELL DISTRIBUTION WIDTH 16.9 % (11.5-14.0); SEGMENTED NEUTROPHILS % (AUTO) 83.9 % (42-78); TOTAL CELLS COUNTED % (AUTO) 100 %; WHITE BLOOD COUNT 18.2 10^3/uL (4.0-10.5)
[2019-06-20 23:01] LABS: ALBUMIN 4.6 g/dL (3.5-5.0); ALKALINE PHOSPHATASE 68 U/L (38-126); ANION GAP 10 (5-19); ASPARTATE AMINO TRANSFERASE 17 U/L (14-36); BILIRUBIN,DIRECT 0.2 mg/dL (0.0-0.4); BILIRUBIN,TOTAL 0.4 mg/dL (0.2-1.3); BLOOD UREA NITROGEN 22 mg/dL (7-20); CALCIUM 9.9 mg/dL (8.4-10.2); CARBON DIOXIDE 24 mmol/L (22-30); CHLORIDE 103 mmol/L (98-107); GLUCOSE 102 mg/dL (75-110)
[2019-06-21] MEDS ORDERED: MORPHINE SULFATE 10 MG/ML INJ IM ONE (01:17)
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
[2019-06-21 01:57] VITALS: BP 109/76
== END 2019-06-21 01:58 | disposition home or self-care (01) ==
LOC: ER 20:40
DX: G89.29 Other chronic pain (principal); M54.40 Lumbago with sciatica, unspecified side; R32 Unspecified urinary incontinence; Z88.0 Allergy status to penicillin; Z88.2 Allergy status to sulfonamides
CPT/HCPCS: 99283; 96372; 36415; 85025; 80053; J2270

== ENCOUNTER 2019-07-31 22:13 | Emergency (ER) | payer BC ==
--- NOTE | 2019-07-31 23:41 | ER Document Report ---
ED GI/ - General Chief Complaint: Constipation Stated Complaint: POSS BOWEL OBSTRUCTION Time Seen by Provider: 07/31/19 23:15 Primary Care Provider: ROSE MARY CARPENTER PA-C [Primary Care Provider] - Follow up as needed Mode of Arrival: Ambulatory Information source: Patient Notes: Patient presents stating that she has not had a bowel movement for the past 30 days. Patient has been using multiple [id number]-ayp-[id number] laxatives such as mag citrate and fleets enemas without any improvement of her symptoms. Patient denies any urinary symptoms nausea or vomiting. Patient does take chronic narcotics for chronic back pain. Patient states she has not had a dose of pain medicine this due to concerns that this was worsening her constipation symptoms. TRAVEL OUTSIDE OF THE [place] IN LAST 30 DAYS: No - HPI Patient complains to provider of: Other - Rectal discomfort. No: Abdominal pain Onset: Last week Timing/Duration: Worse Quality of pain: Achy, Pressure Pain Level: 5 Location: Rectal, Other - Low back pain Associated symptoms: Constipation. denies: Diarrhea, Fever, Nausea, Urinary hesitancy, Urinary frequency, Urinary retention, Urinary urgency, Vomiting Exacerbated by: Denies Relieved by: Denies Similar symptoms previously: Yes Recently seen / treated by doctor: No - Related Data Allergies/Adverse Reactions: amoxicillin [Amoxicillin] Allergy (Intermediate, Verified 06/15/19 20:09) Hives Penicillins Allergy (Intermediate, Verified 06/15/19 20:09) Hives Sulfa (Sulfonamide Antibiotics) Allergy (Intermediate, Verified 06/15/19 20:09) Hives Home Medications: lyrica 100 mg, dilaudid 2mg, clonzepam, promethisine Past Medical History - General Information source: Patient - Social History Smoking Status: Never Smoker Frequency of alcohol use: None Drug Abuse: None Family History: Reviewed & Not Pertinent Patient has homicidal ideation: No Pulmonary Medical History: Reports: Hx Asthma - CHILD, Hx Pneumonia - 2007 Neurological Medical History: Reports: Hx Migraine. Denies: Hx Cerebrovascular Accident, Hx Seizures Renal/ Medical History: Denies: Hx Peritoneal Dialysis Musculoskeletal Medical History: Reports Hx Arthritis - Chronic back pain, Reports Hx Musculoskeletal Trauma Psychiatric Medical History: Reports: Hx Anxiety Past Surgical History: Reports: Hx Oral Surgery, Hx Orthopedic Surgery - RIGHT SHOULDER - Immunizations Immunizations up to date: Yes Hx Diphtheria, Pertussis, Tetanus Vaccination: Yes Review of Systems - Review of Systems Constitutional: No symptoms reported. denies: Fever, Recent illness EENT: No symptoms reported Cardiovascular: No symptoms reported. denies: Chest pain Respiratory: No symptoms reported. denies: Cough, Short of breath Gastrointestinal: Constipation. denies: Abdominal pain, Nausea, Vomiting Genitourinary: No symptoms reported. denies: Burning Female Genitourinary: No symptoms reported Musculoskeletal: Back pain Skin: No symptoms reported Hematologic/Lymphatic: No symptoms reported Neurological/Psychological: No symptoms reported Physical Exam - Vital signs Vitals: Temp Pulse Resp BP Pulse Ox 97.4 F 107 H 20 118/80 100 07/31/19 22:18 07/31/19 22:18 07/31/19 22:18 07/31/19 22:18 07/31/19 22:18 - General General appearance: Appears well, Alert In distress: None - Respiratory Respiratory status: No respiratory distress Chest status: Nontender Breath sounds: Normal. No: Rales, Rhonchi, Stridor, Wheezing Chest palpation: Normal - Cardiovascular Rhythm: Regular Heart sounds: S1 appreciated, S2 appreciated - Abdominal Inspection: Normal - Back Back: Normal - Extremities General upper extremity: Normal inspection, Normal ROM General lower extremity: Normal inspection, Normal ROM - Neurological Neuro grossly intact: Yes Cognition: Normal Sharron Coma Scale Eye Opening: Spontaneous Hubertus Coma Scale Verbal: Oriented Sharron Coma Scale Motor: Obeys Commands Sharron Coma Scale Total: 15 - Psychological Associated symptoms: Tearful - Skin Skin Temperature: Warm Skin Moisture: Dry Skin Color: Pale Course - Re-evaluation Re-evalutation: 08/01/19 03:00 Patient reports moderate amount of stool after enema. Patient states that her back pain is flaring up. Patient states that she did not take her pain medicine as she was trying to avoid worsening her constipation but at this time is requesting a dose of her pain medication. Patient does not want to have an additional enema at this time. Patient states that she prefers to go home and take the MiraLAX as planned. Patient without any abdominal tenderness or vomiting while here. - Vital Signs Vital signs: Temp Pulse Resp BP Pulse Ox 98.5 F 103 H 18 106/72 100 08/01/19 03:51 08/01/19 03:51 08/01/19 03:51 08/01/19 03:51 08/01/19 03:51 - Diagnostic Test Radiology reviewed: Image reviewed, Reports reviewed Discharge - Discharge Clinical Impression: Constipation Qualifiers: Constipation type: drug induced constipation Qualified Code(s): K59.03 - Drug induced constipation Condition: Stable Disposition: HOME, SELF-CARE Instructions: Constipation ([facility]) Additional Instructions: Return immediately for any new or worsening symptoms Followup with your primary care provider, call tomorrow to make a followup appointment Increase oral fluids and stay well-hydrated Take [id number] stool softener such as Colace every day Prescriptions: Polyethylene Glycol 3350 [Miralax] 17 gm PO DAILY #119 powder Referrals: ROSE MARY CARPENTER PA-C [Primary Care Provider] - Follow up as needed
--- NOTE | 2019-08-01 00:26 | RADIOLOGY REPORT (SQ) ---
EXAM DESCRIPTION: XR ABDOMEN 1 VIEW (KUB) COMPLETED DATE/TME: 07/31/2019 23:40 CLINICAL HISTORY: 34 years Female, constipation COMPARISON: None. NUMBER OF VIEWS/TECHNIQUE: 2 FINDINGS: Intestinal gas pattern is within normal limits. Paucity of bowel gas. Colonic stool retention. No suspicious calcification. Grossly intact skeletal structures. IMPRESSION: No acute findings.
[2019-08-01] MEDS ORDERED: MINERAL OIL 30 ML UDCUP PR ONE (01:42)
[2019-08-01] MEDS ORDERED: HYDROMORPHONE HCL INJ/PF 2 MG/ML AMPULE IM ONE (03:39)
[2019-08-01] MEDS ORDERED: MAGNESIUM HYDROXIDE SUSP 30 ML UDCUP PO ONE (03:39)
[2019-08-01 03:53] VITALS: BP 106/72
== END 2019-08-01 03:54 | disposition home or self-care (01) ==
LOC: ER 22:13
DX: K59.03 Drug induced constipation (principal); T50.905A Adverse effect of unspecified drugs, medicaments and biological substances, initial encounter; M54.5 Low back pain; G89.29 Other chronic pain; F41.9 Anxiety disorder, unspecified; Z79.891 Long term (current) use of opiate analgesic; Z79.899 Other long term (current) drug therapy; Z88.0 Allergy status to penicillin; Z88.2 Allergy status to sulfonamides
CPT/HCPCS: 99283; 96372; 74018; J3490 ×2; J1170

== ENCOUNTER 2019-08-01 16:27 | Emergency (ER) | payer BC ==
[2019-08-01 17:08] LABS: ABSOLUTE EOSINOPHILS # (AUTO) 0.2 10^3/uL (0.0-0.6); ABSOLUTE LYMPHOCYTES (AUTO) 1.3 10^3/uL (0.5-4.7); ABSOLUTE MONOCYTES (AUTO) 0.9 10^3/uL (0.1-1.4); ABSOLUTE NEUT (AUTO) 8.3 10^3/uL (1.7-8.2); BASOPHILS % (AUTO) 0.3 % (0-2); EOSINOPHILS % (AUTO) 1.9 % (0-6); HEMATOCRIT 39.3 % (36.0-47.0); HEMOGLOBIN 13.7 g/dL (12.0-15.5); LYMPHOCYTES % (AUTO) 12.2 % (13-45); MEAN CORPUSCULAR HEMOGLOBIN 27.9 pg (27.0-33.4); MEAN CORPUSCULAR HGB CONC 34.9 g/dL (32.0-36.0); MEAN CORPUSCULAR VOLUME 80 fl (80-97); MONOCYTES % (AUTO) 8.4 % (3-13); PLATELET COUNT 335 10^3/uL (150-450); RED BLOOD COUNT 4.92 10^6/uL (3.72-5.28); SEGMENTED NEUTROPHILS % (AUTO) 77.2 % (42-78); TOTAL CELLS COUNTED % (AUTO) 100 %; WHITE BLOOD COUNT 10.8 10^3/uL (4.0-10.5)
[2019-08-01 17:27] LABS: ALBUMIN 4.3 g/dL (3.5-5.0); ALKALINE PHOSPHATASE 58 U/L (38-126); ANION GAP 10 (5-19); ASPARTATE AMINO TRANSFERASE 20 U/L (14-36); BILIRUBIN,TOTAL 0.9 mg/dL (0.2-1.3); BLOOD UREA NITROGEN 10 mg/dL (7-20); CALCIUM 9.1 mg/dL (8.4-10.2); CARBON DIOXIDE 26 mmol/L (22-30); CHLORIDE 100 mmol/L (98-107); GLUCOSE 123 mg/dL (75-110); POTASSIUM 3.7 mmol/L (3.6-5.0); TOTAL PROTEIN 7.2 g/dL (6.3-8.2)
[2019-08-01] MEDS ORDERED: NORMAL SALINE 1000 ML 1,000 ML IV ONE ×2 (18:47→19:58)
[2019-08-01] MEDS ORDERED: KETAMINE HCL INJ 500 MG/10 ML VIAL IV ONE (21:03)
[2019-08-01] MEDS ORDERED: MINERAL OIL ENEMA 133 ML PR ONE (21:52)
[2019-08-01] MEDS ORDERED: MINERAL OIL 30 ML UDCUP ONE (21:55)
[2019-08-02 00:25] VITALS: BP 128/88
--- NOTE | 2019-08-02 00:27 | ER Document Report ---
Entered by JENNIFFER PORTILLO SCRIBE 08/01/19 1734 Acting as scribe for:FRANSISCO MURRAY DO ED GI/ - General Chief Complaint: Constipation Stated Complaint: VOMITING Time Seen by Provider: 08/01/19 16:41 Primary Care Provider: ROSE MARY CARPENTER PA-C [Primary Care Provider] - Follow up tomorrow Information source: Patient Notes: This 34-year-old opiate dependent female patient presents to the emergency today with complaints of constipation. According to the [place] controlled substance database, this patient has been getting 2mg hydromorphone tablets as well as 10 mg oxycodone for years for a "spinal injury". Patient states that she has not had a bowel movement in "months". Patient was seen in this emergency department last night for the same. Patient states that they did an enema last night and she had a very small bowel movement before leaving. This morning she woke up at 8 AM and felt like she needed to go again. Patient states that a "giant piece got stuck long term and it long term out" but she has been unable to have a bowel movement. Patient states she has been taking MiraLAX, magnesium citrate, and stool softeners for the last few weeks as well with no relief. Patient is refusing to have another enema "because it did not work last night". Patient complains of associated nausea and vomiting due to pain. TRAVEL OUTSIDE OF THE [place] IN LAST 30 DAYS: No - Related Data Allergies/Adverse Reactions: amoxicillin [Amoxicillin] Allergy (Intermediate, Verified 08/01/19 17:11) Hives Penicillins Allergy (Intermediate, Verified 08/01/19 17:11) Hives Sulfa (Sulfonamide Antibiotics) Allergy (Intermediate, Verified 08/01/19 17:11) Hives Home Medications: laxatives, lyrica, clonazepam, zofran, dydromorphone Past Medical History - General Information source: Patient, [facility] Records - Social History Smoking Status: Former Smoker Cigarette use (# per day): No Frequency of alcohol use: None Drug Abuse: Prescription drugs Family History: Reviewed & Not Pertinent Patient has homicidal ideation: No Pulmonary Medical History: Reports: Hx Asthma - CHILD, Hx Pneumonia - 2007 Neurological Medical History: Reports: Hx Migraine Musculoskeletal Medical History: Reports Hx Arthritis - Chronic back pain, Reports Hx Musculoskeletal Trauma Psychiatric Medical History: Reports: Hx Anxiety Past Surgical History: Reports: Hx Oral Surgery, Hx Orthopedic Surgery - RIGHT SHOULDER - Immunizations Immunizations up to date: Yes Hx Diphtheria, Pertussis, Tetanus Vaccination: Yes Review of Systems - Review of Systems Constitutional: No symptoms reported EENT: No symptoms reported Cardiovascular: No symptoms reported Respiratory: No symptoms reported Gastrointestinal: See HPI, Abdominal pain, Nausea, Vomiting, Constipation Genitourinary: No symptoms reported Female Genitourinary: No symptoms reported Musculoskeletal: No symptoms reported Skin: No symptoms reported Hematologic/Lymphatic: No symptoms reported Neurological/Psychological: No symptoms reported -: Yes All other systems reviewed and negative Physical Exam - Vital signs Vitals: Temp Pulse Resp BP Pulse Ox 98.6 F 72 18 105/68 98 08/01/19 17:11 08/01/19 17:11 08/01/19 17:11 08/01/19 17:11 08/01/19 17:11 - Notes Notes: Physical Exam: General: Alert, appears uncomfortable. HEENT: Normocephalic. Atraumatic. PERRL. Extraocular movements intact. Oropharynx clear. Dry mucous membranes. Neck: Supple. Non-tender. Respiratory: No respiratory distress. Clear and equal breath sounds bilaterally. Cardiovascular: Regular rate and rhythm. Abdominal: Non-tender. Mild abdominal distension. Normal Bowel Sounds. Back: No gross abnormalities. Extremities: Moves all four extremities. Upper extremities: Normal inspection. Normal ROM. Lower extremities: Normal inspection. No edema. Normal ROM. Neurological: Normal cognition. AAOx4. Normal speech. Psychological: Normal affect. Normal Mood. Skin: Warm. Dry. Normal color. Course - Re-evaluation Re-evalutation: 08/01/19 19:10 [address] Doctor Denice who agrees with manual disimpaction under sedation for patient comfort if necessary. States could also try GoLYTELY. 08/02/19 00:24 Patient is a 34-year-old female who comes in with constipation. She was seen here recently for the same thing. Patient has tried taking MiraLAX, magnesium citrate, Colace, and an enema recently but is still very constipated. States that she is not had a normal bowel movement for about a month. She is in pain management and takes opiate pain medication but states that she has not taken any today. Patient states that she is having a lot of pain in her rectal area due to straining and hard stool. Patient was sedated with ketamine and manual disimpaction was performed with excellent results. Patient is feeling much better. She is also had a hard time urinating today and states that this is not uncommon for her after straining. Bladder scanner was performed and patient wi th over 600 cc of urine in her bladder. Will insert catheter give leg bag. She is absolutely no neurologic deficits and no decreased sensation or saddle anesthesia. No evidence for neurologic compromise at this time. Patient would like to be discharged home and she is feeling much better. Grateful for care. - Vital Signs Vital signs: Temp Pulse Resp BP Pulse Ox 98.6 F 113 H 18 138/97 H 100 08/01/19 17:11 08/01/19 22:20 08/01/19 22:20 08/01/19 22:20 08/01/19 22:20 - Laboratory Result Diagrams: 08/01/19 16:39 08/01/19 16:39 Laboratory results interpreted by me: 08/01/19 08/01/19 16:39 16:39 WBC 10.8 H RDW 15.0 H Lymph % (Auto) 12.2 L Absolute Neuts (auto) 8.3 H Sodium 135.5 L Glucose 123 H - Diagnostic Test Radiology reviewed: Reports reviewed Procedures - Conscious Sedation Conscious sedation Consent obtained: Yes Normal healthy pt.: P1. - ASA Classification Airway Evaluation: Normal anatomy Mallampati Classification: Class 1 Used during procedure: Suction available, IV access obtained, Pulse ox on pt., content publisher on pt. Medications administered: Ketamine Reversal agents: None I personally performed/intraservice time: Sedation, Procedure, 46-60 min Complications: No Discharge - Discharge Clinical Impression: Fecal impaction, Urinary retention Constipation Qualifiers: Constipation type: unspecified constipation type Qualified Code(s): K59.00 - Constipation, unspecified Condition: Stable Disposition: HOME, SELF-CARE Instructions: Constipation ([facility]), Fecal Impaction ([facility]), Urinary Retention ([facility]) Prescriptions: Naloxegol Oxalate [Movantik 25 mg Tablet] 25 mg PO DAILY #30 tablet Referrals: ROSE MARY CARPENTER PA-C [Primary Care Provider] - Follow up tomorrow I personally performed the services described in the documentation, reviewed and edited the documentation which was dictated to the scribe in my presence, and it accurately records my words and actions.
[2019-08-02 01:30] LABS: APPEARANCE,URINE CLEAR; BILIRUBIN,URINE NEGATIVE (NEGATIVE); COLOR,URINE YELLOW; GLUCOSE, URINE NEGATIVE (NEGATIVE); KETONES,URINE NEGATIVE (NEGATIVE); LEUKOCYTE ESTERASE,URINE NEGATIVE (NEGATIVE); NITRITE,URINE NEGATIVE (NEGATIVE); PROTEIN,URINE NEGATIVE (NEGATIVE); URINE SPECIFIC GRAVITY 1.008; UROBILINOGEN,URINE NEGATIVE mg/dL (<2.0)
== END 2019-08-02 00:32 | disposition home or self-care (01) ==
LOC: ER 16:27
DX: K56.41 Fecal impaction (principal); R33.9 Retention of urine, unspecified; R11.2 Nausea with vomiting, unspecified; Z88.0 Allergy status to penicillin; Z88.2 Allergy status to sulfonamides
CPT/HCPCS: 99283; 96360; 96361; 99152; 51702; 36415; 85025; 80053; 81001; 45915; J3490 ×3; J7030

== ENCOUNTER 2019-08-04 12:55 | Emergency (ER) | payer BC ==
[2019-08-04 13:09] VITALS: BP 136/90
--- NOTE | 2019-08-04 14:00 | ER Document Report ---
ED General - General Chief Complaint: Chest Pain Stated Complaint: CHEST PAIN Primary Care Provider: ROSE MARY CARPENTER PA-C [Primary Care Provider] - Follow up as needed Notes: 33-year-old female presents with anxiety palpitations and "not feeling right" for about 2 days since switching from Dilaudid 2 mg 4 times daily to methadone 10 3 times daily by her pain management company/[facility] pain management in [place]. She says that she is confident that the symptoms are from the medicine change. She has no true chest pain or shortness of breath. She has a long history of back surgeries, back pain on chronic opioid therapy with recent constipation and is referred [facility] already in 10 days for follow-up. TRAVEL OUTSIDE OF THE [place] IN LAST 30 DAYS: No - Related Data Allergies/Adverse Reactions: amoxicillin [Amoxicillin] Allergy (Intermediate, Verified 08/01/19 17:11) Hives Penicillins Allergy (Intermediate, Verified 08/01/19 17:11) Hives Sulfa (Sulfonamide Antibiotics) Allergy (Intermediate, Verified 08/01/19 17:11) Hives Past Medical History - Social History Smoking Status: Never Smoker - Back pain Family History: Reviewed & Not Pertinent - Past Medical History Cardiac Medical History: Denies: Hx Coronary Artery Disease, Hx Heart Attack, Hx Hypertension Pulmonary Medical History: Reports: Hx Asthma - CHILD, Hx Pneumonia - 2007 Denies: Hx Bronchitis, Hx COPD Neurological Medical History: Reports: Hx Migraine. Denies: Hx Cerebrovascular Accident, Hx Seizures Renal/ Medical History: Denies: Hx Peritoneal Dialysis Musculoskeletal Medical History: Reports Hx Arthritis - Chronic back pain, Reports Hx Musculoskeletal Trauma Psychiatric Medical History: Reports: Hx Anxiety Past Surgical History: Reports: Hx Oral Surgery, Hx Orthopedic Surgery - RIGHT SHOULDER - Immunizations Immunizations up to date: Yes Hx Diphtheria, Pertussis, Tetanus Vaccination: Yes Review of Systems - Review of Systems Notes: REVIEW OF SYSTEMS GEN: Denies fever, chills, weight loss ENT: Denies sore throat, nasal discharge, ear pain EYES: Denies blurry vision, eye pain, discharge CV: Denies chest pain, palpitations, edema RESP: Denies cough, shortness of breath, wheezing GI: Denies abdominal pain, nausea, vomiting, diarrhea MSK: Neck pain SKIN: Denies rash, skin lesions LYMPH: Denies swollen glands/lymph nodes NEURO: Denies headache, focal weakness or numbness, dizziness PSYCH: Denies depression, suicidal or homicidal ideation PHYSICAL EXAMINATION General: No acute distress, well-nourished tearful. Head: Atraumatic, normocephalic ENT: Mouth normal, oropharynx moist, no exudates or tonsillar enlargement Eyes: Conjunctiva normal, pupils equal, lids normal Neck: No JVD, supple, no guarding CVS: Normal rate, regular rhythm, no murmurs Resp: No resp distress, equal and normal breath sounds bilaterally GI: Nondistended, soft, no tenderness to palpation, no rebound or guarding Ext: No deformities, no edema, normal range of motion in upper and lower ext Back: No CVA or midline TTP Skin: No rash, warm Lymphatic: No lymphadeopathy noted Neuro: Awake, alert. Face symmetric. GCS 15. Physical Exam - Vital signs Vitals: Temp Pulse Resp BP Pulse Ox 98.1 F 101 H 18 136/90 H 99 08/04/19 13:03 08/04/19 13:03 08/04/19 13:03 08/04/19 13:03 08/04/19 13:03 Course - Re-evaluation Re-evalutation: 08/04/19 14:05 Palpitations anxiety with normal physical examination, EKG shows borderline QT interval, likely secondary to methadone She has no overt signs of severe opiate withdrawal, no risk factors for acute coronary syndrome or PE, and no physical exam history or EKG consistent with anything needing a further work-up today. Not suspect any acute spinal cord compression despite recent MRI showing "mass on spine." I expressed sympathy about her issue and attempted to call her pain management clinic but they state that there unable to anything else for her might have formally terminated her from the practice as of today, and are referring her to [facility]. I have discuss ed with the patient there likely diagnosis, aftercare plan, follow-up plans and my usual and customary return precautions. They verbalized understanding of this. 08/04/19 14:08 - Vital Signs Vital signs: Temp Pulse Resp BP Pulse Ox 98.1 F 101 H 18 136/90 H 99 08/04/19 13:03 08/04/19 13:03 08/04/19 13:03 08/04/19 13:03 08/04/19 13:03 Discharge - Discharge Clinical Impression: Chronic back pain greater than 3 months duration Condition: Good Disposition: HOME, SELF-CARE Additional Instructions: I have communicated with your pain medicine practice. They state they have exhausted all non-opioid therapy with you, and are unwilling/unable to provide further care. Similarly I am unable to manage her chronic pain here in the emergency department and recommend following new pain practice., Fortunately we did not find any dangerous cause of your anxiety and palpitations today. Referrals: ROSE MARY CARPENTER PA-C [Primary Care Provider] - Follow up as needed
--- NOTE | 2019-08-04 20:45 | EKG REPORT ---
SEVERITY:- ABNORMAL ECG - SINUS TACHYCARDIA PROBABLE LEFT ATRIAL ABNORMALITY BORDERLINE T ABNORMALITIES, ANTERIOR LEADS BORDERLINE PROLONGED QT INTERVAL : Confirmed by: Shelly Lazar 04-Aug-2019 20:44:53
== END 2019-08-04 14:30 | disposition home or self-care (01) ==
LOC: ER 12:55
DX: G89.29 Other chronic pain (principal); M54.9 Dorsalgia, unspecified; F41.9 Anxiety disorder, unspecified; R00.2 Palpitations; M54.2 Cervicalgia; Z79.891 Long term (current) use of opiate analgesic; Z88.0 Allergy status to penicillin; Z88.2 Allergy status to sulfonamides
CPT/HCPCS: 93005; 93010; 99283

== ENCOUNTER 2019-09-28 11:20 | Emergency (ER) | payer BC ==
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
[2019-09-28] MEDS: KETOROLAC TROMETHAMINE 60 MG/2 ML SDV IM ONE ×2 (12:38→12:40)
[2019-09-28 12:40] LABS: APPEARANCE,URINE SLIGHTLY-CLOUDY; BILIRUBIN,URINE NEGATIVE (NEGATIVE); COLOR,URINE YELLOW; GLUCOSE, URINE NEGATIVE (NEGATIVE); KETONES,URINE NEGATIVE (NEGATIVE); LEUKOCYTE ESTERASE,URINE NEGATIVE (NEGATIVE); NITRITE,URINE NEGATIVE (NEGATIVE); PROTEIN,URINE NEGATIVE (NEGATIVE); UROBILINOGEN,URINE NEGATIVE mg/dL (<2.0)
--- NOTE | 2019-09-28 12:48 | RADIOLOGY REPORT (SQ) ---
EXAM DESCRIPTION: L SPINE WHOLE IMAGES COMPLETED DATE/TIME: 09/28/2019 12:37 pm REASON FOR STUDY: acute on chronic lbp x 1week COMPARISON: None. NUMBER OF VIEWS: Five views including obliques. TECHNIQUE: AP, lateral, oblique, and sacral radiographic images acquired of the lumbar spine. LIMITATIONS: None. FINDINGS: MINERALIZATION: Normal. SEGMENTATION: Normal. No transitional anatomy. ALIGNMENT: Minimal scoliosis in the upper lumbar spine VERTEBRAE: Maintained height. No fracture or worrisome bone lesion. DISCS: Preserved height. No significant osteophytes or end plate irregularity. POSTERIOR ELEMENTS: Pedicles and facets are intact. No pars defect or posterior arch defects. HARDWARE: None in the spine. PARASPINAL SOFT TISSUES: Normal. PELVIS: Intact as visualized. No fractures or worrisome bone lesions. SI joints intact. OTHER: No other significant finding. IMPRESSION: Minimal scoliosis. No acute finding. TECHNICAL DOCUMENTATION: JOB ID: [id number] 2010 [employer]- All Rights Reserved Reading location - IP/workstation name: [email or web address]
[2019-09-28 12:59] LABS: ABSOLUTE EOSINOPHILS # (AUTO) 0.1 10^3/uL (0.0-0.6); ABSOLUTE LYMPHOCYTES (AUTO) 1.6 10^3/uL (0.5-4.7); ABSOLUTE MONOCYTES (AUTO) 0.6 10^3/uL (0.1-1.4); ABSOLUTE NEUT (AUTO) 4.6 10^3/uL (1.7-8.2); BASOPHILS % (AUTO) 0.5 % (0-2); EOSINOPHILS % (AUTO) 1.9 % (0-6); HEMATOCRIT 38.5 % (36.0-47.0); HEMOGLOBIN 12.7 g/dL (12.0-15.5); LYMPHOCYTES % (AUTO) 23.1 % (13-45); MEAN CORPUSCULAR HEMOGLOBIN 26.9 pg (27.0-33.4); MEAN CORPUSCULAR HGB CONC 33.1 g/dL (32.0-36.0); MEAN CORPUSCULAR VOLUME 81 fl (80-97); MONOCYTES % (AUTO) 8.5 % (3-13); PLATELET COUNT 298 10^3/uL (150-450); RED BLOOD COUNT 4.74 10^6/uL (3.72-5.28); TOTAL CELLS COUNTED % (AUTO) 100 %; WHITE BLOOD COUNT 6.9 10^3/uL (4.0-10.5)
[2019-09-28 13:19] LABS: ALBUMIN 4.3 g/dL (3.5-5.0); ALKALINE PHOSPHATASE 52 U/L (38-126); ANION GAP 8 (5-19); ASPARTATE AMINO TRANSFERASE 22 U/L (14-36); BILIRUBIN,TOTAL 0.3 mg/dL (0.2-1.3); BLOOD UREA NITROGEN 11 mg/dL (7-20); CALCIUM 9.4 mg/dL (8.4-10.2); CARBON DIOXIDE 24 mmol/L (22-30); CHLORIDE 107 mmol/L (98-107); GLUCOSE 87 mg/dL (75-110); POTASSIUM 3.9 mmol/L (3.6-5.0); TOTAL PROTEIN 7.4 g/dL (6.3-8.2)
--- NOTE | 2019-09-28 13:33 | ER Document Report ---
ED General - General Chief Complaint: Low Back Pain Stated Complaint: BACK PAIN, LEG PAIN Time Seen by Provider: 09/28/19 11:50 Primary Care Provider: ROSE MARY CARPENTER PA-C [Primary Care Provider] - Follow up as needed Mode of Arrival: Ambulatory TRAVEL OUTSIDE OF THE [place] IN LAST 30 DAYS: No - HPI Patient complains to provider of: Back Pain Notes: Back pain chronic 8/10 throbbing in nature with radiation and tingling in her upper extremities and lower extremities. Patient has history of back surgery. Seen at outside emergency department last week had MRI performed which showed some mild spinal stenosis C6-C7. Patient states she has been calling her neurosurgeon but no one has called her back. Denies fever chills trauma. Patient has had problems with multiple ERs in pain management doctors getting answers. Denies any saddle anesthesia bowel or bladder incontinence. - Related Data Allergies/Adverse Reactions: amoxicillin [Amoxicillin] Allergy (Intermediate, Verified 09/28/19 11:48) Hives Penicillins Allergy (Intermediate, Verified 09/28/19 11:48) Hives Sulfa (Sulfonamide Antibiotics) Allergy (Intermediate, Verified 09/28/19 11:48) Hives Past Medical History - General Information source: Patient - Social History Smoking Status: Never Smoker Chew tobacco use (# tins/day): No Frequency of alcohol use: None Drug Abuse: None Family History: Reviewed & Not Pertinent Patient has homicidal ideation: No - Past Medical History Cardiac Medical History: Denies: Hx Coronary Artery Disease, Hx Heart Attack, Hx Hypertension Pulmonary Medical History: Reports: Hx Asthma - CHILD, Hx Pneumonia - 2007 Denies: Hx Bronchitis, Hx COPD Neurological Medical History: Reports: Hx Migraine. Denies: Hx Cerebrovascular Accident, Hx Seizures Renal/ Medical History: Denies: Hx Peritoneal Dialysis Musculoskeletal Medical History: Reports Hx Arthritis - Chronic back pain, Reports Hx Musculoskeletal Trauma Psychiatric Medical History: Reports: Hx Anxiety Past Surgical History: Reports: Hx Oral Surgery, Hx Orthopedic Surgery - RIGHT SHOULDER - Immunizations Immunizations up to date: Yes Hx Diphtheria, Pertussis, Tetanus Vaccination: Yes Review of Systems - Review of Systems Notes: REVIEW OF SYSTEMS: CONSTITUTIONAL: -fevers, -chills EENT: -eye pain, -difficulty swallowing, -nasal congestion CARDIOVASCULAR: -chest pain, -syncope. RESPIRATORY: -cough, -SOB GASTROINTESTINAL: -abdominal pain, -nausea, -vomiting, -diarrhea GENITOURINARY: -dysuria, -hematuria MUSCULOSKELETAL: Positive back pain with sciatica SKIN: -rash or skin lesions. HEMATOLOGIC: -easy bruising or bleeding. LYMPHATIC: -swollen, enlarged glands. NEUROLOGICAL: -altered mental status or loss of consciousness, -headache, - neurologic symptoms PSYCHIATRIC: -anxiety, -depression. ALL OTHER SYSTEMS REVIEWED AND NEGATIVE. Physical Exam - Vital signs Vitals: Temp Pulse Resp BP Pulse Ox 98.7 F 100 16 123/84 100 09/28/19 11:09/28/19 11:09/28/19 11:09/28/19 11:09/28/19 11:27 - Notes Notes: PHYSICAL EXAMINATION: GENERAL: Well-appearing, well-nourished and in no acute distress. HEAD: Atraumatic, normocephalic. EYES: Pupils equal round, sclera anicteric, conjunctiva are normal. ENT: Surgical mask in place. NECK: Normal range of motion, LUNGS: No respiratory Distress, normal chest rise EXTREMITIES: Normal range of motion, No cyanosis. NEUROLOGICAL: Cranial nerves grossly intact. Normal speech, PSYCH: Normal mood, normal affect. SKIN: Warm, Dry, Course - Re-evaluation Re-evalutation: 09/28/19 13:53 -appearing female in no acute distress presents with exacerbation of chronic back and neck pain with some paresthesias in her upper extremities. Patient states she has been unable to get a hold of her neurosurgeon having called him 3 times since her last ER visit. That ER visit was on Friday where she had an MRI. Call her neurosurgeon to speak to staff. They will follow-up with her today. They are reviewing the MRI later this afternoon. Patient was seen in May by the office. Was going to have a spinal stimulator placed but has been unable to follow-up. Tensive lab work-up and imaging studies unremarkable will be discharged home with prescription for steroids. Given oral opioids in the department. Return if anything changes. - Vital Signs Vital signs: Temp Pulse Resp BP Pulse Ox 98.7 F 100 16 123/84 100 09/28/19 11:27 09/28/19 11:09/28/19 11:09/28/19 11:09/28/19 11:27 - Laboratory Result Diagrams: 09/28/19 12:45 09/28/19 12:45 Laboratory results interpreted by me: 09/28/19 12:45 MCH 26.9 L RDW 15.0 H Discharge - Discharge Clinical Impression: Back pain with sciatica Condition: Stable Disposition: HOME, SELF-CARE Additional Instructions: Dr. Mitchell [phone] Prescriptions: Methylprednisolone [Medrol Dosepack (4 mg/Tab) 21 Tab/Dosepak] 21 tab PO DAILY #21 dspk Referrals: ROSE MARY CARPENTER PA-C [Primary Care Provider] - Follow up as needed AMARI MITCHELL MD [NO LOCAL MD] - Follow up as needed
[2019-09-28] MEDS ORDERED: OXYCODONE HCL IR 5 MG TABLET PO ONE (13:51)
[2019-09-28 14:20] VITALS: BP 115/76
== END 2019-09-28 14:20 | disposition home or self-care (01) ==
LOC: ER 11:20
DX: M54.40 Lumbago with sciatica, unspecified side (principal); G89.29 Other chronic pain; M48.02 Spinal stenosis, cervical region; R20.2 Paresthesia of skin; Z98.890 Other specified postprocedural states; Z88.0 Allergy status to penicillin
CPT/HCPCS: 36415; 72110; 80053; 81001; 81025; 85025; 99283; J1885

== ENCOUNTER 2019-09-29 17:01 | Emergency (ER) | payer BC ==
--- NOTE | 2019-09-29 17:21 | ER Document Report ---
ED Medical Screen (RME) - General Chief Complaint: Psych Problem Stated Complaint: PSYCH EVAL Time Seen by Provider: 09/29/19 17:11 Primary Care Provider: ROSE MARY CARPENTER PA-C [Primary Care Provider] - Follow up as needed Information source: Patient Notes: Patient presents complaining of chronic low back pain. Patient feels that nobody takes her seriously. Patient states she was at home looking at all her pill bottles and had thoughts of suicide of taking all of her pills. Patient states she did not take all of her pills and has not had suicidal thoughts before. Patient states that she does have a history of anxiety and depression and was started on Cymbalta less than a month ago. I have greeted and performed a rapid initial assessment of this patient. A comprehensive ED assessment and evaluation of the patient, analysis of test results and completion of the medical decision making process will be conducted by additional ED providers. TRAVEL OUTSIDE OF THE [place] IN LAST 30 DAYS: No - Related Data Allergies/Adverse Reactions: amoxicillin [Amoxicillin] Allergy (Intermediate, Verified 09/28/19 11:48) Hives Penicillins Allergy (Intermediate, Verified 09/28/19 11:48) Hives Sulfa (Sulfonamide Antibiotics) Allergy (Intermediate, Verified 09/28/19 11:48) Hives Past Medical History - Social History Family history: Reviewed & Not Pertinent - Past Medical History Cardiac Medical History: Denies: Hx Coronary Artery Disease, Hx Heart Attack, Hx Hypertension Pulmonary Medical History: Reports: Hx Asthma - CHILD, Hx Pneumonia - 2007 Denies: Hx Bronchitis, Hx COPD Neurological Medical History: Reports: Hx Migraine. Denies: Hx Cerebrovascular Accident, Hx Seizures Renal/ Medical History: Denies: Hx Peritoneal Dialysis Musculoskeltal Medical History: Reports Hx Arthritis - Chronic back pain, Reports Hx Musculoskeletal Trauma Psychiatric Medical History: Reports: Hx Anxiety Past Surgical History: Reports: Hx Oral Surgery, Hx Orthopedic Surgery - RIGHT SHOULDER - Immunizations Immunizations up to date: Yes Hx Diphtheria, Pertussis, Tetanus Vaccination: Yes Physical Exam - Vital signs Vitals: Temp Pulse Resp BP Pulse Ox 98.2 F 102 H 18 126/82 H 100 09/29/19 17:06 09/29/19 17:06 09/29/19 17:06 09/29/19 17:06 09/29/19 17:06 - General Notes: Slow, deliberate speech - Psychological Associated symptoms: Depressed, Tearful Course - Vital Signs Vital signs: Temp Pulse Resp BP Pulse Ox 98.2 F 102 H 18 126/82 H 100 09/29/19 17:06 09/29/19 17:06 09/29/19 17:06 09/29/19 17:06 09/29/19 17:06 Doctor's Discharge - Discharge Referrals: ROSE MARY CARPENTER PA-C [Primary Care Provider] - Follow up as needed
[2019-09-29 18:23] LABS: ABSOLUTE EOSINOPHILS # (AUTO) 0.1 10^3/uL (0.0-0.6); ABSOLUTE LYMPHOCYTES (AUTO) 1.3 10^3/uL (0.5-4.7); ABSOLUTE MONOCYTES (AUTO) 0.6 10^3/uL (0.1-1.4); ABSOLUTE NEUT (AUTO) 7.5 10^3/uL (1.7-8.2); BASOPHILS % (AUTO) 0.4 % (0-2); EOSINOPHILS % (AUTO) 0.6 % (0-6); HEMATOCRIT 40.2 % (36.0-47.0); HEMOGLOBIN 13.6 g/dL (12.0-15.5); LYMPHOCYTES % (AUTO) 13.7 % (13-45); MEAN CORPUSCULAR HEMOGLOBIN 27.3 pg (27.0-33.4); MEAN CORPUSCULAR HGB CONC 33.7 g/dL (32.0-36.0); MEAN CORPUSCULAR VOLUME 81 fl (80-97); MONOCYTES % (AUTO) 5.9 % (3-13); PLATELET COUNT 356 10^3/uL (150-450); RED BLOOD COUNT 4.97 10^6/uL (3.72-5.28); RED CELL DISTRIBUTION WIDTH 15.3 % (11.5-14.0); SEGMENTED NEUTROPHILS % (AUTO) 79.4 % (42-78); TOTAL CELLS COUNTED % (AUTO) 100 %; WHITE BLOOD COUNT 9.4 10^3/uL (4.0-10.5)
[2019-09-29 18:44] LABS: ALBUMIN 4.6 g/dL (3.5-5.0); ALKALINE PHOSPHATASE 60 U/L (38-126); ANION GAP 9 (5-19); ASPARTATE AMINO TRANSFERASE 23 U/L (14-36); BILIRUBIN,TOTAL 0.5 mg/dL (0.2-1.3); BLOOD UREA NITROGEN 11 mg/dL (7-20); CALCIUM 9.7 mg/dL (8.4-10.2); CARBON DIOXIDE 22 mmol/L (22-30); CHLORIDE 109 mmol/L (98-107); GLUCOSE 103 mg/dL (75-110); POTASSIUM 3.8 mmol/L (3.6-5.0); TOTAL PROTEIN 7.9 g/dL (6.3-8.2)
[2019-09-29 18:45] LABS: ACETAMINOPHEN < 10 ug/mL (10-30); ALCOHOL < 10 mg/dL (NONE DETECTED); SALICYLATE < 1.0 mg/dL (2.0-20.0)
[2019-09-29 19:52] LABS: APPEARANCE,URINE CLEAR; BILIRUBIN,URINE NEGATIVE (NEGATIVE); COLOR,URINE YELLOW; GLUCOSE, URINE NEGATIVE (NEGATIVE); KETONES,URINE NEGATIVE (NEGATIVE); LEUKOCYTE ESTERASE,URINE NEGATIVE (NEGATIVE); NITRITE,URINE NEGATIVE (NEGATIVE); PROTEIN,URINE NEGATIVE (NEGATIVE); URINE SPECIFIC GRAVITY 1.016; UROBILINOGEN,URINE NEGATIVE mg/dL (<2.0)
[2019-09-29 20:05] LABS: URINE AMPHETAMINES SCREEN NEGATIVE; URINE BARBITURATES SCREEN NEGATIVE; URINE COCAINE SCREEN NEGATIVE; URINE MARIJUANA (THC) SCREEN NEGATIVE; URINE METHADONE SCREEN NEGATIVE; URINE PHENCYCLIDINE SCREEN NEGATIVE
[2019-09-29 20:11] LABS: URINE BENZODIAZEPINES SCREEN UNCONFIRMED POSITIVE
--- NOTE | 2019-09-29 20:44 | EKG REPORT ---
SEVERITY:- BORDERLINE ECG - SINUS RHYTHM BORDERLINE T ABNORMALITIES, ANTERIOR LEADS : Confirmed by: David Rosales MD 29-Sep-2019 20:43:20
--- NOTE | 2019-09-29 20:46 | PSYCHOLOGICAL NOTE ---
Psych Note - Psych Note Date seen by psych provider: 09/29/19 Time seen by psych provider: 19:35 Psych Note: Medication recommendations per [facility]'s contracted psychiatrist Dr Shayan BARRETT are as follows Discontinue home medication Cymbalta Start Buspar 5mg twice daily Impression/Plan: Patient is recommended for [address] Echavarria was consulted on the care and management of this patient; attending physician is in agreement with recommendations and disposition.
--- NOTE | 2019-09-29 21:01 | ER Document Report ---
ED General - General Chief Complaint: Suicidal Ideation Stated Complaint: PSYCH EVAL Time Seen by Provider: 09/29/19 17:11 Primary Care Provider: ROSE MARY CARPENTER PA-C [Primary Care Provider] - Follow up as needed TRAVEL OUTSIDE OF THE [place] IN LAST 30 DAYS: No - HPI Notes: Patient is a 34-year-old female with chronic back pain, who presents to the emergency department for evaluation of suicidal ideation. She is having significant pain. She has been told she may need a spinal stimulator possible surgery. She states she just feels hopeless around all of this. She states halima t her parents are not very supportive, they do not care for taking medications. She states that she thought about taking all of her pain medications in an effort to kill herself. She has been diagnosed with depression. She has never had any suicide attempt. No homicidal ideation. No visual or auditory hallucination. - Related Data Allergies/Adverse Reactions: amoxicillin [Amoxicillin] Allergy (Intermediate, Verified 09/28/19 11:48) Hives Penicillins Allergy (Intermediate, Verified 09/28/19 11:48) Hives Sulfa (Sulfonamide Antibiotics) Allergy (Intermediate, Verified 09/28/19 11:48) Hives Home Medications: multiple pain medications. cymbalta Past Medical History - General Information source: Patient - Social History Smoking Status: Never Smoker Chew tobacco use (# tins/day): No Frequency of alcohol use: None Drug Abuse: None Family History: Reviewed & Not Pertinent Patient has homicidal ideation: No - Past Medical History Cardiac Medical History: Denies: Hx Coronary Artery Disease, Hx Heart Attack, Hx Hypertension Pulmonary Medical History: Reports: Hx Asthma - CHILD, Hx Pneumonia - 2007 Denies: Hx Bronchitis, Hx COPD Neurological Medical History: Reports: Hx Migraine. Denies: Hx Cerebrovascular Accident, Hx Seizures Renal/ Medical History: Denies: Hx Peritoneal Dialysis Musculoskeletal Medical History: Reports Hx Arthritis - Chronic back pain, Reports Hx Musculoskeletal Trauma, Reports Other - Degenerative disc disease and spinal stenosis Psychiatric Medical History: Reports: Hx Anxiety Past Surgical History: Reports: Hx Oral Surgery, Hx Orthopedic Surgery - RIGHT SHOULDER - Immunizations Immunizations up to date: Yes Hx Diphtheria, Pertussis, Tetanus Vaccination: Yes Review of Systems - Review of Systems Musculoskeletal: See HPI Neurological/Psychological: See HPI -: Yes All other systems reviewed and negative Physical Exam - Vital signs Vitals: Temp Pulse Resp BP Pulse Ox 98.2 F 102 H 18 126/82 H 100 09/29/19 17:06 09/29/19 17:06 09/29/19 17:06 09/29/19 17:06 09/29/19 17:06 - Notes Notes: This is a very depressed and tearful 34-year-old female who appears her stated age. She is very flat in affect, normal hygiene, interactive with examiner. Vital signs reviewed, please refer to chart. Head is normocephalic, atraumatic. Pupils equal round, reactive to light. Neck is supple without meningismus. Heart is regular rate and rhythm. Lungs are clear to auscultation bilaterally. Abdomen is soft, nontender, normoactive bowel sounds throughout. Extremities without cyanosis, clubbing. Posterior calves are nontender. Peripheral pulses are equal. Skin is warm and dry. Patient is awake, alert, neurological exam is nonfocal. Course - Re-evaluation Re-evalutation: 09/29/19 21:00 Patient presents to the emergency department for evaluation. Laboratory investigations and EKG were ordered for medical clearance. They are largely unremarkable. Patient will be cleared from a medical standpoint. She was seen by the psychosocial team, medication recommendations taken. Cymbalta will be discontinued, will start the patient on BuSpar. Otherwise we will continue most of her regular medications, awaiting further psychosocial evaluation. 09/29/19 21:07 - Vital Signs Vital signs: Temp Pulse Resp BP Pulse Ox 98.2 F 102 H 18 126/82 H 100 09/29/19 17:13 09/29/19 17:06 09/29/19 17:06 09/29/19 17:06 09/29/19 17:06 - Laboratory Result Diagrams: 09/29/19 17:55 09/29/19 17:55 Laboratory results interpreted by me: 09/29/19 09/29/19 17:55 17:55 RDW 15.3 H Seg Neutrophils % 79.4 H Chloride 109 H Salicylates < 1.0 L Acetaminophen < 10 L - EKG Interpretation by Me Additional EKG results interpreted by me: 09/29/19 21:07 Sinus mechanism with rate of 91 bpm. Normal axis and intervals. No acute ST changes concerning for ischemia or infarction. Discharge - Discharge Clinical Impression: Chronic low back pain Condition: Stable Disposition: OTHER Referrals: ROSE MARY CARPENTER PA-C [Primary Care Provider] - Follow up as needed
[2019-09-29] MEDS ORDERED: CLONAZEPAM 1 MG TABLET PO PRN (21:09)
[2019-09-29] MEDS ORDERED: LORAZEPAM 1 MG TABLET PO ONE (21:20)
[2019-09-29] MEDS: OXYCODONE HCL SR 10 MG TABLET PO PRN (21:40)
[2019-09-29] MEDS: PREGABALIN 75 MG CAPSULE PO SCH (21:40)
[2019-09-29] MEDS: BUSPIRONE HCL 10 MG TABLET PO SCH (21:45)
[2019-09-29] MEDS ORDERED: HALOPERIDOL LACTATE INJ 5 MG/1 ML VIAL IM ONE (22:21)
[2019-09-30] MEDS: OXYCODONE HCL SR 10 MG TABLET PO PRN (06:59)
[2019-09-30] MEDS: BUSPIRONE HCL 10 MG TABLET PO SCH (10:55)
[2019-09-30] MEDS: PREGABALIN 75 MG CAPSULE PO SCH (10:55)
[2019-09-30 12:21] VITALS: BP 104/69
== END 2019-09-30 12:33 | disposition home or self-care (01) ==
LOC: ER 17:01
DX: R45.851 Suicidal ideations (principal); M54.5 Low back pain; G89.29 Other chronic pain; M54.9 Dorsalgia, unspecified; F32.9 Major depressive disorder, single episode, unspecified; Z88.0 Allergy status to penicillin; Z88.2 Allergy status to sulfonamides; J45.909 Unspecified asthma, uncomplicated
CPT/HCPCS: 93005; 99285; 96372; 36415; 80307 ×4; 84703; 85025; 80053; 81001; 93010; J1630

== ENCOUNTER 2019-10-10 15:50 | Emergency (ER) | payer BC ==
[2019-10-10] MEDS ORDERED: NORMAL SALINE 1000 ML 1,000 ML IV ONE ×2 (16:22→21:23)
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
--- NOTE | 2019-10-10 17:30 | RADIOLOGY REPORT (SQ) ---
EXAM DESCRIPTION: CT HEAD WITHOUT IMAGES COMPLETED DATE/TIME: 10/10/2019 5:17 pm REASON FOR STUDY: Headache COMPARISON: CT head 07/20/2018, 08/10/2015. TECHNIQUE: Axial images acquired through the brain without intravenous contrast. Images reviewed wi th bone, brain and subdural windows. Images stored on PACS. All CT scanners at this facility use dose modulation, iterative reconstruction, and/or weight based d osing when appropriate to reduce radiation dose to as low as reasonably achievable (ALARA). [facility]: Dose Right [facility]: CareDose [facility]: Dose Right [facility]: Teradose 4D [facility]: Smart [employer] RADIATION DOSE: CT Rad equipment meets quality standard of care and radiation dose reduction techniq ues were employed. CTDIvol: 53.2 mGy. DLP: 911 mGy-cm. mGy. LIMITATIONS: None. FINDINGS: VENTRICLES: Normal size and contour. CEREBRUM: No mass effect. No hemorrhage. No midline shift. Normal jones/white matter differentiatio n. No evidence for acute territorial infarction. CEREBELLUM: No mass effect. No hemorrhage. No alteration of density. No evidence for acute infarct ion. EXTRAAXIAL SPACES: No fluid collections. ORBITS AND GLOBE: Symmetrical contour of the globes. CALVARIUM: No depressed skull fracture. PARANASAL SINUSES: No air-fluid level. SOFT TISSUES: No hematoma. IMPRESSION: NO ACUTE INTRACRANIAL IMAGING FINDINGS. EVIDENCE OF ACUTE STROKE: NO. COMMENT: Quality ID # [id number]: Final reports with documentation of one or more dose reduction techniques (e.g., Automated exposure control, adjustment of the mA and/or kV according to patient size, use of iterative reconstruction technique) TECHNICAL DOCUMENTATION: JOB ID: [id number] [place]-64 2010 [employer]- All Rights Reserved Reading location - IP/workstation name: [email or web address]
[2019-10-10 18:47] LABS: ABSOLUTE LYMPHOCYTES (AUTO) 1.4 10^3/uL (0.5-4.7); ABSOLUTE MONOCYTES (AUTO) 0.4 10^3/uL (0.1-1.4); ABSOLUTE NEUT (AUTO) 5.9 10^3/uL (1.7-8.2); BASOPHILS % (AUTO) 0.5 % (0-2); EOSINOPHILS % (AUTO) 0.3 % (0-6); LYMPHOCYTES % (AUTO) 17.9 % (13-45); MEAN CORPUSCULAR HEMOGLOBIN 26.7 pg (27.0-33.4); MEAN CORPUSCULAR HGB CONC 33.2 g/dL (32.0-36.0); MEAN CORPUSCULAR VOLUME 80 fl (80-97); MONOCYTES % (AUTO) 4.7 % (3-13); PLATELET COUNT 344 10^3/uL (150-450); RED BLOOD COUNT 5.23 10^6/uL (3.72-5.28); RED CELL DISTRIBUTION WIDTH 15.3 % (11.5-14.0); SEGMENTED NEUTROPHILS % (AUTO) 76.6 % (42-78); TOTAL CELLS COUNTED % (AUTO) 100 %; WHITE BLOOD COUNT 7.8 10^3/uL (4.0-10.5)
[2019-10-10 19:02] LABS: ALBUMIN 5.2 g/dL (3.5-5.0); ALKALINE PHOSPHATASE 62 U/L (38-126); ANION GAP 12 (5-19); ASPARTATE AMINO TRANSFERASE 22 U/L (14-36); BILIRUBIN,DIRECT 0.1 mg/dL (0.0-0.4); BILIRUBIN,TOTAL 0.7 mg/dL (0.2-1.3); BLOOD UREA NITROGEN 10 mg/dL (7-20); CARBON DIOXIDE 24 mmol/L (22-30); CHLORIDE 105 mmol/L (98-107); GLUCOSE 100 mg/dL (75-110); POTASSIUM 3.5 mmol/L (3.6-5.0); TOTAL PROTEIN 8.7 g/dL (6.3-8.2)
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
[2019-10-10] MEDS ORDERED: MORPHINE SULFATE 10 MG/ML INJ IV ONE (20:10)
[2019-10-10] MEDS ORDERED: ONDANSETRON HCL INJ/PF 4 MG/2 ML SDV IV ONE (20:11)
[2019-10-10 22:41] VITALS: BP 131/98
[2019-10-10 22:54] LABS: APPEARANCE,URINE SLIGHTLY-CLOUDY; BILIRUBIN,URINE NEGATIVE (NEGATIVE); COLOR,URINE YELLOW; GLUCOSE, URINE NEGATIVE (NEGATIVE); KETONES,URINE 20 mg/dL (NEGATIVE); PROTEIN,URINE NEGATIVE (NEGATIVE); URINE SPECIFIC GRAVITY 1.019; UROBILINOGEN,URINE NEGATIVE mg/dL (<2.0)
== END 2019-10-10 23:17 | disposition home or self-care (01) ==
LOC: ER 15:50
DX: R51 Headache (principal); R11.2 Nausea with vomiting, unspecified; F41.9 Anxiety disorder, unspecified; Z79.899 Other long term (current) drug therapy; Z86.69 Personal history of other diseases of the nervous system and sense organs; Z88.0 Allergy status to penicillin; Z88.2 Allergy status to sulfonamides
CPT/HCPCS: 99284; 96361; 96374; 96375; 36415; 85025; 81025; 80053; 81001; 70450; J2270; J2405; J7030

== ENCOUNTER 2019-10-11 21:49 | Emergency (ER) | payer BC ==
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
[2019-10-11 23:36] LABS: ABSOLUTE BASOPHILS # (AUTO) 0.1 10^3/uL (0.0-0.2); ABSOLUTE LYMPHOCYTES (AUTO) 1.4 10^3/uL (0.5-4.7); ABSOLUTE MONOCYTES (AUTO) 0.4 10^3/uL (0.1-1.4); BASOPHILS % (AUTO) 0.9 % (0-2); EOSINOPHILS % (AUTO) 0.6 % (0-6); HEMATOCRIT 40.2 % (36.0-47.0); HEMOGLOBIN 13.8 g/dL (12.0-15.5); LYMPHOCYTES % (AUTO) 20.6 % (13-45); MEAN CORPUSCULAR HEMOGLOBIN 27.3 pg (27.0-33.4); MEAN CORPUSCULAR HGB CONC 34.4 g/dL (32.0-36.0); MEAN CORPUSCULAR VOLUME 80 fl (80-97); MONOCYTES % (AUTO) 5.7 % (3-13); PLATELET COUNT 318 10^3/uL (150-450); RED BLOOD COUNT 5.06 10^6/uL (3.72-5.28); RED CELL DISTRIBUTION WIDTH 15.2 % (11.5-14.0); SEGMENTED NEUTROPHILS % (AUTO) 72.2 % (42-78); TOTAL CELLS COUNTED % (AUTO) 100 %; WHITE BLOOD COUNT 6.9 10^3/uL (4.0-10.5)
[2019-10-11 23:47] LABS: ALKALINE PHOSPHATASE 63 U/L (38-126); ANION GAP 10 (5-19); ASPARTATE AMINO TRANSFERASE 19 U/L (14-36); BILIRUBIN,TOTAL 0.5 mg/dL (0.2-1.3); BLOOD UREA NITROGEN 4 mg/dL (7-20); CALCIUM 9.7 mg/dL (8.4-10.2); CARBON DIOXIDE 23 mmol/L (22-30); CHLORIDE 106 mmol/L (98-107); GLUCOSE 94 mg/dL (75-110); TOTAL PROTEIN 8.3 g/dL (6.3-8.2)
[2019-10-12] MEDS ORDERED: METOCLOPRAMIDE HCL INJ/PF 10 MG/2 ML SDV IV ONE (01:45)
[2019-10-12] MEDS ORDERED: FENTANYL CITRATE INJ/PF 100 MCG/2 ML AMPUL IV ONE (01:46)
[2019-10-12] MEDS ORDERED: DIPHENHYDRAMINE HCL 50 MG/ML VIAL IV ONE (01:46)
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
[2019-10-12 02:26] VITALS: BP 135/106
--- NOTE | 2019-10-12 09:44 | EKG REPORT ---
SEVERITY:- ABNORMAL ECG - SINUS TACHYCARDIA BIATRIAL ABNORMALITIES ABNORMAL T, CONSIDER ISCHEMIA, DIFFUSE LEADS : Confirmed by: Shelly Lazar 12-Oct-2019 09:44:06
== END 2019-10-12 02:35 | disposition home or self-care (01) ==
LOC: ER 21:49
DX: R51 Headache (principal); E87.6 Hypokalemia; I10 Essential (primary) hypertension; Z88.0 Allergy status to penicillin; Z88.2 Allergy status to sulfonamides
CPT/HCPCS: 93005; 99283; 96374; 96375; 36415; 85025; 80053; 84484; 93010; J1200; J3010; J2765

== ENCOUNTER 2019-10-12 15:03 | Emergency (ER) | payer BC ==
--- NOTE | 2019-10-12 15:38 | ER Document Report ---
ED Medical Screen (RME) - General Chief Complaint: Chest Pain Stated Complaint: BACK PAIN/ABNORMAL LABS Time Seen by Provider: 10/12/19 15:29 Primary Care Provider: AZRA SIMMONS DO [Primary Care Provider] - Follow up as needed TRAVEL OUTSIDE OF THE [place] IN LAST 30 DAYS: No - HPI Notes: 10/12/19 15:36 34-year-old female with a history of neuropathies and degenerative joint disease presents to the emergency room for complaints of headache, chest pain, states it is hard for her to catch her breath and feels like she is having a fast heart rate which started today and was also advised by her primary care provider to go to the emergency room due to her having hypokalemia. Patient's not sure what her last potassium was for them to advise her to go to the emergency room. Denies any fevers chills, is not on any control, no recent surgeries, no periods immobilization, does not have any clotting disorders. Patient states that she feels like her heart is "acting very weird". Patient states sometimes she is having some shortness of breath. I have greeted and performed a rapid initial assessment of this patient. A comprehensive ED assessment and evaluation of the patient, analysis of test results and completion of the medical decision making process will be conducted by additional ED providers. PHYSICAL EXAMINATION: GENERAL: Well-appearing, well-nourished and in no acute distress. HEAD: Atraumatic, normocephalic. EYES: Pupils equal round extraocular movements intact, conjunctiva are normal. NECK: Normal range of motion CV: tachycardia LUNGS: No respiratory distress Musculoskeletal: Normal range of motion NEUROLOGICAL: Normal speech, normal gait. SKIN: Warm, Dry, normal turgor, no rashes or lesions noted. - Related Data Allergies/Adverse Reactions: amoxicillin [Amoxicillin] Allergy (Intermediate, Verified 10/11/19 22:46) Hives Penicillins Allergy (Intermediate, Verified 10/11/19 22:46) Hives Sulfa (Sulfonamide Antibiotics) Allergy (Intermediate, Verified 10/11/19 22:46) Hives Past Medical History - Social History Family history: Reviewed & Not Pertinent - Past Medical History Cardiac Medical History: Denies: Hx Coronary Artery Disease, Hx Heart Attack, Hx Hypertension Pulmonary Medical History: Reports: Hx Asthma - CHILD, Hx Pneumonia - 2007 Denies: Hx Bronchitis, Hx COPD Neurological Medical History: Reports: Hx Migraine. Denies: Hx Cerebrovascular Accident, Hx Seizures Renal/ Medical History: Denies: Hx Peritoneal Dialysis Musculoskeltal Medical History: Reports Hx Arthritis - Chronic back pain, Reports Hx Musculoskeletal Trauma Psychiatric Medical History: Reports: Hx Anxiety Past Surgical History: Reports: Hx Oral Surgery, Hx Orthopedic Surgery - RIGHT SHOULDER - Immunizations Immunizations up to date: Yes Hx Diphtheria, Pertussis, Tetanus Vaccination: Yes Physical Exam - Vital signs Vitals: Temp Pulse Resp BP Pulse Ox 98.8 F 108 H 16 130/86 H 100 10/12/19 15:11 10/12/19 15:11 10/12/19 15:11 10/12/19 15:11 10/12/19 15:11 Course - Vital Signs Vital signs: Temp Pulse Resp BP Pulse Ox 98.8 F 108 H 16 130/86 H 100 10/12/19 15:11 10/12/19 15:11 10/12/19 15:11 10/12/19 15:11 10/12/19 15:11 Doctor's Discharge - Discharge Referrals: AZRA SIMMONS DO [Primary Care Provider] - Follow up as needed
--- NOTE | 2019-10-12 16:18 | RADIOLOGY REPORT (SQ) ---
EXAM DESCRIPTION: CHEST SINGLE VIEW IMAGES COMPLETED DATE/TIME: 10/12/2019 4:04 pm REASON FOR STUDY: chest tightness COMPARISON: 01/11/2019. EXAM PARAMETERS: NUMBER OF VIEWS: One view. TECHNIQUE: Single frontal radiographic view of the chest acquired. RADIATION DOSE: NA LIMITATIONS: None. FINDINGS: LUNGS AND PLEURA: No opacities, masses or pneumothorax. No pleural effusion. MEDIASTINUM AND HILAR STRUCTURES: No masses. Contour normal. HEART AND VASCULAR STRUCTURES: Heart normal in size. Normal vasculature. BONES: No acute findings. HARDWARE: None in the chest. OTHER: No other significant finding. IMPRESSION: NO ACUTE RADIOGRAPHIC FINDING IN THE CHEST. TECHNICAL DOCUMENTATION: JOB ID: [id number] 2010 [employer]- All Rights Reserved Reading location - IP/workstation name: [email or web address]
[2019-10-12] MEDS ORDERED: METOPROLOL SUCCINATE 25 MG TAB.SR.24H PO ONE (16:54)
[2019-10-12] MEDS ORDERED: POTASSIUM CHLORIDE 20 MEQ PACKET PO ONE (16:55)
--- NOTE | 2019-10-12 17:00 | ER Document Report ---
ED General - General Chief Complaint: Chest Pain Stated Complaint: BACK PAIN/ABNORMAL LABS Time Seen by Provider: 10/12/19 15:29 Primary Care Provider: AZRA ENGLE DO [Primary Care Provider] - 10/13/19 Notes: 34 year old female reports her pcp office - Dr. Engle - told her to go to the ED due to low k. She has a h/o k being 3.0 yesterday. Also she has a h/o chronic headaches, spinal stenosis, chronic low back pain - previous lumbar surgery and sciatica and is due for cervical spine evaluation later this week. She has had no fever or rash or tick bite. She has no chest pain. Her heart rate has been elevated in low 100's recently. TRAVEL OUTSIDE OF THE [place] IN LAST 30 DAYS: No - Related Data Allergies/Adverse Reactions: amoxicillin [Amoxicillin] Allergy (Intermediate, Verified 10/11/19 22:46) Hives Penicillins Allergy (Intermediate, Verified 10/11/19 22:46) Hives Sulfa (Sulfonamide Antibiotics) Allergy (Intermediate, Verified 10/11/19 22:46) Hives Past Medical History - Social History Smoking Status: Never Smoker Frequency of alcohol use: None Drug Abuse: None Family History: Reviewed & Not Pertinent - Past Medical History Cardiac Medical History: Denies: Hx Coronary Artery Disease, Hx Heart Attack, Hx Hypertension Pulmonary Medical History: Reports: Hx Asthma - CHILD, Hx Pneumonia - 2007 Denies: Hx Bronchitis, Hx COPD Neurological Medical History: Reports: Hx Migraine. Denies: Hx Cerebrovascular Accident, Hx Seizures Renal/ Medical History: Denies: Hx Peritoneal Dialysis Musculoskeletal Medical History: Reports Hx Arthritis - Chronic back pain, Reports Hx Musculoskeletal Trauma Psychiatric Medical History: Reports: Hx Anxiety Past Surgical History: Reports: Hx Oral Surgery, Hx Orthopedic Surgery - RIGHT SHOULDER - Immunizations Immunizations up to date: Yes Hx Diphtheria, Pertussis, Tetanus Vaccination: Yes Physical Exam - Vital signs Vitals: Temp Pulse Resp BP Pulse Ox 98.8 F 108 H 16 130/86 H 100 10/12/19 15:11 10/12/19 15:11 10/12/19 15:11 10/12/19 15:11 10/12/19 15:11 Interpretation: Normal - General General appearance: Appears well, Alert - HEENT Head: Normocephalic, Atraumatic Eyes: Normal Pupils: PERRL - Respiratory Respiratory status: No respiratory distress Chest status: Nontender Breath sounds: Normal Chest palpation: Normal - Cardiovascular Rhythm: Regular Heart sounds: Normal auscultation Murmur: No - Abdominal Inspection: Normal Distension: No distension Bowel sounds: Normal Tenderness: Nontender Organomegaly: No organomegaly - Back Back: Normal, Nontender - Extremities General upper extremity: Normal inspection, Nontender, Normal color, Normal ROM, Normal temperature General lower extremity: Normal inspection, Nontender, Normal color, Normal ROM, Normal temperature, Normal weight bearing. No: Edil's sign - Neurological Neuro grossly intact: Yes Cognition: Normal Orientation: AAOx4 [place] Coma Scale Eye Opening: Spontaneous [place] Coma Scale Verbal: Oriented [place] Coma Scale Motor: Obeys Commands [place] Coma Scale Total: 15 Speech: Normal Motor strength normal: LUE, RUE, LLE, RLE Sensory: Normal - Psychological Associated symptoms: Normal affect, Normal mood - Skin Skin Temperature: Warm Skin Moisture: Dry Skin Color: Normal Course - Re-evaluation Re-evalutation: 10/12/19 21:29 MDM 34 year old referred here due to low K. She continues to complain of headache and back pain and worries her BP may be elevating. There certainly may be an anxiety component in play here. She understands to follow up. Considered etiologies include acs, cap, pe, throid disease and the workup here does not support a serious or life threatening etiology of her chest discomfort. Additionally she is more concerned about her K and was reportedly directed here due to that. The K is better here. Will re write for K and have her follow up. She has follow up already scheduled for 10/14 and she knows to keep that appointment. - Vital Signs Vital signs: Temp Pulse Resp BP Pulse Ox 99.1 F 95 16 125/92 H 99 10/12/19 20:44 10/12/19 20:44 10/12/19 20:44 10/12/19 20:44 10/12/19 20:44 - Laboratory Result Diagrams: 10/12/19 16:43 10/12/19 16:43 Laboratory results interpreted by me: 10/12/19 10/12/19 10/12/19 16:43 16:43 19:25 WBC 10.7 H MCV 79 L MCH 26.6 L RDW 14.9 H Lymph % (Auto) 12.7 L Absolute Neuts (auto) 8.6 H Seg Neutrophils % 80.3 H Potassium 3.2 L Urine Protein 100 H Urine Ketones 20 H Urine Blood SMALL H Urine Urobilinogen 4.0 H Ur Leukocyte Esterase SMALL H - Diagnostic Test Radiology reviewed: Image reviewed, Reports reviewed Discharge - Discharge Clinical Impression: Hypokalemia Hypertension Qualifiers: Hypertension type: unspecified Qualified Code(s): I10 - Essential (primary) hypertension Headache Qualifiers: Headache type: unspecified Headache chronicity pattern: episodic headache Intractability: not intractable Qualified Code(s): R51 - Headache Disposition: HOME, SELF-CARE Instructions: Chest Pain of Unclear Cause ([facility]), Hypokalemia ([facility]) Additional Instructions: See your doctor in follow up. Rest. Keep your follow up 10/14 for the neck/ spinal stenosis. Return here for chest pain, shortness of breath or other problems or other concerns. Prescriptions: Potassium Chloride 20 meq PO DAILY #7 tablet.er Referrals: AZRA ENGLE DO [Primary Care Provider] - 10/13/19
[2019-10-12 17:10] LABS: ABSOLUTE BASOPHILS # (AUTO) 0.1 10^3/uL (0.0-0.2); ABSOLUTE LYMPHOCYTES (AUTO) 1.4 10^3/uL (0.5-4.7); ABSOLUTE MONOCYTES (AUTO) 0.7 10^3/uL (0.1-1.4); ABSOLUTE NEUT (AUTO) 8.6 10^3/uL (1.7-8.2); BASOPHILS % (AUTO) 0.5 % (0-2); EOSINOPHILS % (AUTO) 0.4 % (0-6); HEMATOCRIT 40.3 % (36.0-47.0); HEMOGLOBIN 13.5 g/dL (12.0-15.5); LYMPHOCYTES % (AUTO) 12.7 % (13-45); MEAN CORPUSCULAR HEMOGLOBIN 26.6 pg (27.0-33.4); MEAN CORPUSCULAR HGB CONC 33.5 g/dL (32.0-36.0); MEAN CORPUSCULAR VOLUME 79 fl (80-97); MONOCYTES % (AUTO) 6.1 % (3-13); PLATELET COUNT 319 10^3/uL (150-450); RED BLOOD COUNT 5.08 10^6/uL (3.72-5.28); RED CELL DISTRIBUTION WIDTH 14.9 % (11.5-14.0); SEGMENTED NEUTROPHILS % (AUTO) 80.3 % (42-78); TOTAL CELLS COUNTED % (AUTO) 100 %; WHITE BLOOD COUNT 10.7 10^3/uL (4.0-10.5)
[2019-10-12 17:26] LABS: ALBUMIN 4.8 g/dL (3.5-5.0); ALKALINE PHOSPHATASE 63 U/L (38-126); ANION GAP 12 (5-19); ASPARTATE AMINO TRANSFERASE 24 U/L (14-36); BILIRUBIN,TOTAL 0.7 mg/dL (0.2-1.3); BLOOD UREA NITROGEN 10 mg/dL (7-20); CALCIUM 9.7 mg/dL (8.4-10.2); CARBON DIOXIDE 22 mmol/L (22-30); CHLORIDE 105 mmol/L (98-107); GLUCOSE 91 mg/dL (75-110); POTASSIUM 3.2 mmol/L (3.6-5.0); TOTAL PROTEIN 8.1 g/dL (6.3-8.2)
[2019-10-12 19:41] LABS: APPEARANCE,URINE SLIGHTLY-CLOUDY; BILIRUBIN,URINE NEGATIVE (NEGATIVE); COLOR,URINE AMBER; GLUCOSE, URINE NEGATIVE (NEGATIVE); KETONES,URINE 20 mg/dL (NEGATIVE); LEUKOCYTE ESTERASE,URINE SMALL (NEGATIVE); NITRITE,URINE NEGATIVE (NEGATIVE); PROTEIN,URINE 100 mg/dL (NEGATIVE); URINE SPECIFIC GRAVITY 1.025
[2019-10-12 21:48] VITALS: BP 130/91
--- NOTE | 2019-10-13 09:30 | EKG REPORT ---
SEVERITY:- ABNORMAL ECG - SINUS TACHYCARDIA NONSPECIFIC T ABNORMALITIES, DIFFUSE LEADS : Confirmed by: Shelly Lazar 13-Oct-2019 09:29:28
== END 2019-10-12 21:48 | disposition home or self-care (01) ==
LOC: ER 15:03
DX: E87.6 Hypokalemia (principal); R51 Headache; I10 Essential (primary) hypertension; R07.9 Chest pain, unspecified; Z88.0 Allergy status to penicillin; Z88.2 Allergy status to sulfonamides
CPT/HCPCS: 99284; 36415; 83735; 84443; 85025; 81025; 80053; 81001; 84484; 85379; 71045; 93005; 93010; J3490

== ENCOUNTER 2019-10-13 18:40 | Emergency (ER) | payer BC ==
[2019-10-13] MEDS ORDERED: BUTALB/ACETAMINOPHEN/CAFFEINE 1 TAB EACH PO ONE (19:34)
[2019-10-13] MEDS ORDERED: PROMETHAZINE HCL 25 MG TABLET PO ONE (19:35)
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
[2019-10-13 20:26] LABS: ABSOLUTE BASOPHILS # (AUTO) 0.1 10^3/uL (0.0-0.2); ABSOLUTE EOSINOPHILS # (AUTO) 0.1 10^3/uL (0.0-0.6); ABSOLUTE LYMPHOCYTES (AUTO) 1.6 10^3/uL (0.5-4.7); ABSOLUTE MONOCYTES (AUTO) 0.5 10^3/uL (0.1-1.4); ABSOLUTE NEUT (AUTO) 6.6 10^3/uL (1.7-8.2); BASOPHILS % (AUTO) 0.6 % (0-2); EOSINOPHILS % (AUTO) 0.7 % (0-6); HEMATOCRIT 43.6 % (36.0-47.0); HEMOGLOBIN 14.4 g/dL (12.0-15.5); LYMPHOCYTES % (AUTO) 18.6 % (13-45); MEAN CORPUSCULAR HEMOGLOBIN 27.1 pg (27.0-33.4); MEAN CORPUSCULAR HGB CONC 33.1 g/dL (32.0-36.0); MEAN CORPUSCULAR VOLUME 82 fl (80-97); MONOCYTES % (AUTO) 5.3 % (3-13); PLATELET COUNT 310 10^3/uL (150-450); RED BLOOD COUNT 5.32 10^6/uL (3.72-5.28); RED CELL DISTRIBUTION WIDTH 15.2 % (11.5-14.0); SEGMENTED NEUTROPHILS % (AUTO) 74.8 % (42-78); TOTAL CELLS COUNTED % (AUTO) 100 %; WHITE BLOOD COUNT 8.8 10^3/uL (4.0-10.5)
[2019-10-13 20:30] LABS: APPEARANCE,URINE SLIGHTLY-CLOUDY; BILIRUBIN,URINE NEGATIVE (NEGATIVE); COLOR,URINE YELLOW; GLUCOSE, URINE NEGATIVE (NEGATIVE); KETONES,URINE TRACE mg/dL (NEGATIVE); LEUKOCYTE ESTERASE,URINE MODERATE (NEGATIVE); NITRITE,URINE NEGATIVE (NEGATIVE); PROTEIN,URINE NEGATIVE (NEGATIVE); URINE SPECIFIC GRAVITY 1.012; UROBILINOGEN,URINE NEGATIVE mg/dL (<2.0)
[2019-10-13 20:44] LABS: ALKALINE PHOSPHATASE 65 U/L (38-126); ANION GAP 11 (5-19); ASPARTATE AMINO TRANSFERASE 38 U/L (14-36); BILIRUBIN,TOTAL 0.6 mg/dL (0.2-1.3); BLOOD UREA NITROGEN 12 mg/dL (7-20); CALCIUM 9.9 mg/dL (8.4-10.2); CARBON DIOXIDE 24 mmol/L (22-30); CHLORIDE 104 mmol/L (98-107); GLUCOSE 103 mg/dL (75-110); POTASSIUM 3.3 mmol/L (3.6-5.0); TOTAL PROTEIN 8.4 g/dL (6.3-8.2)
[2019-10-14 02:03] VITALS: BP 148/94
== END 2019-10-14 02:18 | disposition left against medical advice (07) ==
LOC: ER 18:40
DX: Z53.20 Procedure and treatment not carried out because of patient's decision for unspecified reasons (principal); R51 Headache; R10.9 Unspecified abdominal pain; R11.2 Nausea with vomiting, unspecified; R33.9 Retention of urine, unspecified; Z88.0 Allergy status to penicillin; Z88.2 Allergy status to sulfonamides
CPT/HCPCS: 36415; 80053; 81001; 83735; 84703; 85025; 99281

== ENCOUNTER 2019-10-14 16:05 | Emergency (ER) | payer BC ==
[2019-10-14] MEDS ORDERED: KETOROLAC TROMETHAMINE INJ/PF 30 MG/1 ML SDV IV ONE (16:39)
[2019-10-14] MEDS ORDERED: NORMAL SALINE 1000 ML 1,000 ML IV ONE (16:40)
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
[2019-10-14 18:12] LABS: ABSOLUTE LYMPHOCYTES (AUTO) 1.6 10^3/uL (0.5-4.7); ABSOLUTE MONOCYTES (AUTO) 0.4 10^3/uL (0.1-1.4); ABSOLUTE NEUT (AUTO) 6.3 10^3/uL (1.7-8.2); BASOPHILS % (AUTO) 0.5 % (0-2); EOSINOPHILS % (AUTO) 0.6 % (0-6); HEMATOCRIT 42.7 % (36.0-47.0); HEMOGLOBIN 14.3 g/dL (12.0-15.5); LYMPHOCYTES % (AUTO) 18.5 % (13-45); MEAN CORPUSCULAR HEMOGLOBIN 26.6 pg (27.0-33.4); MEAN CORPUSCULAR HGB CONC 33.6 g/dL (32.0-36.0); MEAN CORPUSCULAR VOLUME 79 fl (80-97); MONOCYTES % (AUTO) 5.3 % (3-13); PLATELET COUNT 337 10^3/uL (150-450); RED CELL DISTRIBUTION WIDTH 15.1 % (11.5-14.0); SEGMENTED NEUTROPHILS % (AUTO) 75.1 % (42-78); TOTAL CELLS COUNTED % (AUTO) 100 %; WHITE BLOOD COUNT 8.4 10^3/uL (4.0-10.5)
[2019-10-14 18:28] LABS: ALBUMIN 5.1 g/dL (3.5-5.0); ALKALINE PHOSPHATASE 61 U/L (38-126); ANION GAP 14 (5-19); ASPARTATE AMINO TRANSFERASE 31 U/L (14-36); BILIRUBIN,TOTAL 0.6 mg/dL (0.2-1.3); BLOOD UREA NITROGEN 15 mg/dL (7-20); CALCIUM 9.8 mg/dL (8.4-10.2); CARBON DIOXIDE 23 mmol/L (22-30); CHLORIDE 102 mmol/L (98-107); GLUCOSE 90 mg/dL (75-110); POTASSIUM 3.3 mmol/L (3.6-5.0); TOTAL PROTEIN 8.4 g/dL (6.3-8.2)
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
--- NOTE | 2019-10-14 20:49 | RADIOLOGY REPORT (SQ) ---
CT OF THE CHEST, ABDOMEN, AND PELVIS HISTORY: Shortness of breath. Left flank pain. COMPARISON: 01/11/2019. TECHNIQUE: CT scan of the chest, abdomen, and pelvis with IV contrast. This exam was performed according to our departmental dose-optimization program, which includes automated exposure control, adjustment of the mA and/or kV according to patient size and/or use of iterative reconstruction technique. FINDINGS: The thyroid gland is unremarkable. No mediastinal or hilar adenopathy. The heart size is normal without pericardial effusion. No consolidation, pleural effusion, or pneumothorax. The liver, spleen, pancreas, gallbladder, adrenal glands, and kidneys are unremarkable. The pelvic organs are unremarkable. The small and large bowel are grossly unremarkable. No free fluid or free air is seen. There is no aortic aneurysm or dissection. No filling defects are seen in the main pulmonary arteries or the segmental branches. No acute bony findings are seen. No abnormal body wall hernia is seen. IMPRESSION: 1. No acute pulmonary embolism. 2. No acute abdominal or pelvic findings.
[2019-10-14] MEDS ORDERED: POTASSIUM CHLORIDE 20 MEQ PACKET PO ONE (21:09)
[2019-10-14 21:58] VITALS: BP 140/93
--- NOTE | 2019-10-15 01:14 | EKG REPORT ---
SEVERITY:- ABNORMAL ECG - SINUS TACHYCARDIA NONSPECIFIC T ABNORMALITIES, DIFFUSE LEADS BORDERLINE PROLONGED QT INTERVAL : Confirmed by: Shelly Lazar 15-Oct-2019 01:14:13
== END 2019-10-14 21:59 | disposition home or self-care (01) ==
LOC: ER 16:05
DX: G89.4 Chronic pain syndrome (principal); E87.6 Hypokalemia; R10.9 Unspecified abdominal pain; R00.0 Tachycardia, unspecified; Z88.0 Allergy status to penicillin; Z88.2 Allergy status to sulfonamides
CPT/HCPCS: 93005; 99284; 96361; 96374; 36415; 83735; 84703; 85025; 80053; 71275; 74177; 93010; J1885; J7030; J3490

== ENCOUNTER 2019-10-15 19:34 | Emergency (ER) | payer BC ==
[2019-10-15 19:59] VITALS: BP 138/80
[2019-10-15] MEDS ORDERED: METOPROLOL SUCCINATE 25 MG TAB.SR.24H PO ONE (20:05)
[2019-10-15] MEDS ORDERED: OXYCODONE-ACETAMINOPHEN 5-325 MG TABLET PO ONE (20:09)
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
== END 2019-10-15 20:30 | disposition home or self-care (01) ==
LOC: ER 19:34
DX: R00.0 Tachycardia, unspecified (principal); I15.8 Other secondary hypertension; G89.29 Other chronic pain; M54.9 Dorsalgia, unspecified; R11.2 Nausea with vomiting, unspecified; R06.02 Shortness of breath; Z88.0 Allergy status to penicillin; Z88.2 Allergy status to sulfonamides
CPT/HCPCS: 99283

== ENCOUNTER 2019-10-16 17:49 | Emergency (ER) | payer BC ==
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
[2019-10-16 20:00] LABS: ABSOLUTE MONOCYTES (AUTO) 0.7 10^3/uL (0.1-1.4); BASOPHILS % (AUTO) 0.6 % (0-2); RED CELL DISTRIBUTION WIDTH 15.1 % (11.5-14.0); TOTAL CELLS COUNTED % (AUTO) 100 %
[2019-10-16 20:07] LABS: ABSOLUTE BASOPHILS # (AUTO) 0.1 10^3/uL (0.0-0.2); ABSOLUTE LYMPHOCYTES (AUTO) 1.8 10^3/uL (0.5-4.7); ABSOLUTE NEUT (AUTO) 5.4 10^3/uL (1.7-8.2); EOSINOPHILS % (AUTO) 0.6 % (0-6); HEMATOCRIT 39.7 % (36.0-47.0); HEMOGLOBIN 13.4 g/dL (12.0-15.5); LYMPHOCYTES % (AUTO) 22.3 % (13-45); MEAN CORPUSCULAR HEMOGLOBIN 27.1 pg (27.0-33.4); MEAN CORPUSCULAR HGB CONC 33.8 g/dL (32.0-36.0); MEAN CORPUSCULAR VOLUME 80 fl (80-97); MONOCYTES % (AUTO) 8.6 % (3-13); PLATELET COUNT 353 10^3/uL (150-450); RED BLOOD COUNT 4.96 10^6/uL (3.72-5.28); SEGMENTED NEUTROPHILS % (AUTO) 67.9 % (42-78); WHITE BLOOD COUNT 7.9 10^3/uL (4.0-10.5)
[2019-10-16 20:19] LABS: APPEARANCE,URINE CLOUDY; BILIRUBIN,URINE NEGATIVE (NEGATIVE); COLOR,URINE YELLOW; GLUCOSE, URINE NEGATIVE (NEGATIVE); KETONES,URINE NEGATIVE (NEGATIVE); LEUKOCYTE ESTERASE,URINE TRACE (NEGATIVE); NITRITE,URINE NEGATIVE (NEGATIVE); PROTEIN,URINE NEGATIVE (NEGATIVE); URINE SPECIFIC GRAVITY 1.006; UROBILINOGEN,URINE NEGATIVE mg/dL (<2.0)
[2019-10-16 20:22] LABS: ALBUMIN 5.1 g/dL (3.5-5.0); ALKALINE PHOSPHATASE 55 U/L (38-126); ANION GAP 10 (5-19); ASPARTATE AMINO TRANSFERASE 28 U/L (14-36); BILIRUBIN,TOTAL 0.5 mg/dL (0.2-1.3); BLOOD UREA NITROGEN 9 mg/dL (7-20); CALCIUM 9.6 mg/dL (8.4-10.2); CARBON DIOXIDE 25 mmol/L (22-30); CHLORIDE 103 mmol/L (98-107); GLUCOSE 81 mg/dL (75-110); POTASSIUM 3.6 mmol/L (3.6-5.0); TOTAL PROTEIN 8.4 g/dL (6.3-8.2)
[2019-10-16 20:23] LABS: C-REACTIVE PROTEIN < 5.0 mg/L (<10.0)
[2019-10-16 20:45] LABS: ERYTHROCYTE SEDIMENTATION RATE 11 mm/hr (0-20)
--- NOTE | 2019-10-16 20:56 | RADIOLOGY REPORT (SQ) ---
EXAM DESCRIPTION: MR THORACIC SPINE WITHOUT THEN WITH IV CONTRAST, MR LUMBAR SPINE WITHOUT THEN WITH IV CONTRAST COMPLETED DATE/TME: 10/16/2019 18:28 CLINICAL HISTORY: 34 years, Female, Cauda equina syndrome COMPARISON: None. TECHNIQUE: Multiplanar, multisequence MR images of the thoracic and lumbar spine were obtained both prior to and after the administration of 10 mL of ProHance intravenous contrast. Images stored on PACS. LIMITATIONS: None. FINDINGS: MR thoracic spine: [employer] images show no suspicious finding. Thoracic cord signal is within normal limits. Anterior and posterior ligamentous structures are intact. Thoracic vertebral body heights and alignments are maintained. No suspicious bone marrow edema signal. No epidural fluid collections are appreciated. Postcontrast images reveal no foci of abnormal enhancement. No significant generative changes are evident throughout the thoracic spine. Paravertebral soft tissues show no suspicious abnormality. MR lumbar spine: Conus medullaris is normal in signal and morphology, terminating at the L1 level. Anterior and posterior ligamentous structures are intact. No epidural fluid collections are appreciated. No suspicious bone marrow edema signal. Lumbar vertebral body heights and alignments are maintained. Postcontrast images reveal no suspicious foci of abnormal enhancement. However, there is minimal enhancement about the posterior paravertebral soft tissues at L5 which is likely postprocedural. Only minimal degenerative changes are evident, as follows: At L1-L2, there is minimal disc bulge without significant foraminal or central canal stenosis. L2-L5 appear normal. At L5-S1, there is mild disc bulge without static and foraminal or central canal stenosis. There are postprocedural changes of right laminotomy at L5. IMPRESSION: MR thoracic spine: Essentially normal MR of the thoracic spine. MR lumbar spine: Postsurgical changes of right laminotomy at L5. Otherwise, minimal multilevel lumbar spondylosis without significant foraminal or central canal stenosis at any level. Specifically, no findings to explain the provided history. copyright 2010 [employer]- All Rights Reserved
[2019-10-16] MEDS ORDERED: OXYCODONE-ACETAMINOPHEN 5-325 MG TABLET PO ONE (21:28)
[2019-10-16 22:57] VITALS: BP 121/89
== END 2019-10-16 22:30 | disposition home or self-care (01) ==
LOC: ER 17:49
DX: M54.5 Low back pain (principal); R33.9 Retention of urine, unspecified; R53.1 Weakness; R00.0 Tachycardia, unspecified; I10 Essential (primary) hypertension; Z88.0 Allergy status to penicillin; Z88.2 Allergy status to sulfonamides
CPT/HCPCS: 99284; 36415; 87086; 85025; 85652; 81025; 86140; 80053; 81001; 72157; 72158; A9576

== ENCOUNTER 2019-10-19 17:19 | Emergency (ER) | payer BC ==
[2019-10-19] MEDS ORDERED: ONDANSETRON 4 MG TAB.RAPDIS PO ONE (18:26)
--- NOTE | 2019-10-19 18:27 | ER Document Report ---
ED Medical Screen (RME) - General Chief Complaint: Flank Pain Stated Complaint: FLANK PAIN,BACK PAIN,DIFFICULTY URINATING Time Seen by Provider: 10/19/19 18:16 Primary Care Provider: AZRA SIMMONS DO [Primary Care Provider] - Follow up as needed TRAVEL OUTSIDE OF THE [place] IN LAST 30 DAYS: No - HPI Notes: 10/19/19 18:23 34-year-old female chronic back issues states that she feels like she has a left kidney infection. She was at her back doctor today who states that "my kidney was so swollen that the back doctor could see it and told me I needed to come to the emergency room immediately" then he came a shot of Decadron. Patient reports she has not been able to void much, states she only voided 3 times in the last 3 days. Has tried to increase fluids. Reports chills and low-grade fevers. States she is vomiting and cannot keep much fluid down. Denies any abdominal pain. Denies any chest pain shortness of breath. 10/19/19 18:26 PHYSICAL EXAMINATION: Vital signs reviewed. GENERAL: Well-appearing, well-nourished and in no acute distress. HEAD: Atraumatic, normocephalic. NECK: Normal range of motion CV: Heart regular rate and rhythm LUNGS: No respiratory distress abd: L cva tenderness MDM: Patient seen and examined for rapid initial assessment. Vital signs reviewed. A comprehensive ED assessment and evaluation of the patient, analysis of test re sults and completion of the medical decision making process will be conducted by additional ED providers. *Note is created using voice recognition software and may contain spelling, syntax or grammatical errors. - Related Data Allergies/Adverse Reactions: amoxicillin [Amoxicillin] Allergy (Intermediate, Verified 10/14/19 16:18) Hives Penicillins Allergy (Intermediate, Verified 10/14/19 16:18) Hives Sulfa (Sulfonamide Antibiotics) Allergy (Intermediate, Verified 10/14/19 16:18) Hives Past Medical History - Social History Family history: Reviewed & Not Pertinent - Past Medical History Cardiac Medical History: Denies: Hx Coronary Artery Disease, Hx Heart Attack, Hx Hypertension Pulmonary Medical History: Reports: Hx Asthma - CHILD, Hx Pneumonia - 2007 Denies: Hx Bronchitis, Hx COPD Neurological Medical History: Reports: Hx Migraine. Denies: Hx Cerebrovascular Accident, Hx Seizures Renal/ Medical History: Denies: Hx Peritoneal Dialysis Musculoskeltal Medical History: Reports Hx Arthritis - Chronic back pain, Reports Hx Musculoskeletal Trauma Psychiatric Medical History: Reports: Hx Anxiety Past Surgical History: Reports: Hx Oral Surgery, Hx Orthopedic Surgery - RIGHT SHOULDER - Immunizations Immunizations up to date: Yes Hx Diphtheria, Pertussis, Tetanus Vaccination: Yes Physical Exam - Vital signs Vitals: Temp Pulse Resp BP Pulse Ox 99.0 F 107 H 20 133/88 H 97 10/19/19 17:47 10/19/19 17:47 10/19/19 17:47 10/19/19 17:47 10/19/19 17:47 Course - Vital Signs Vital signs: Temp Pulse Resp BP Pulse Ox 99.0 F 107 H 20 133/88 H 97 10/19/19 17:47 10/19/19 17:47 10/19/19 17:47 10/19/19 17:47 10/19/19 17:47 Doctor's Discharge - Discharge Referrals: AZRA SIMMONS DO [Primary Care Provider] - Follow up as needed
[2019-10-19 19:01] LABS: ABSOLUTE LYMPHOCYTES (AUTO) 1.7 10^3/uL (0.5-4.7); ABSOLUTE MONOCYTES (AUTO) 0.9 10^3/uL (0.1-1.4); ABSOLUTE NEUT (AUTO) 13.3 10^3/uL (1.7-8.2); BASOPHILS % (AUTO) 0.1 % (0-2); EOSINOPHILS % (AUTO) 0.1 % (0-6); HEMATOCRIT 39.6 % (36.0-47.0); LYMPHOCYTES % (AUTO) 10.6 % (13-45); MEAN CORPUSCULAR HEMOGLOBIN 26.6 pg (27.0-33.4); MEAN CORPUSCULAR HGB CONC 32.9 g/dL (32.0-36.0); MEAN CORPUSCULAR VOLUME 81 fl (80-97); MONOCYTES % (AUTO) 5.4 % (3-13); PLATELET COUNT 356 10^3/uL (150-450); RED CELL DISTRIBUTION WIDTH 15.2 % (11.5-14.0); SEGMENTED NEUTROPHILS % (AUTO) 83.8 % (42-78); TOTAL CELLS COUNTED % (AUTO) 100 %; WHITE BLOOD COUNT 15.8 10^3/uL (4.0-10.5)
[2019-10-19 19:14] LABS: ALBUMIN 4.6 g/dL (3.5-5.0); ALKALINE PHOSPHATASE 57 U/L (38-126); ANION GAP 11 (5-19); ASPARTATE AMINO TRANSFERASE 29 U/L (14-36); BILIRUBIN,TOTAL 0.4 mg/dL (0.2-1.3); BLOOD UREA NITROGEN 11 mg/dL (7-20); CALCIUM 9.9 mg/dL (8.4-10.2); CARBON DIOXIDE 24 mmol/L (22-30); CHLORIDE 104 mmol/L (98-107); GLUCOSE 93 mg/dL (75-110); POTASSIUM 3.3 mmol/L (3.6-5.0); TOTAL PROTEIN 7.7 g/dL (6.3-8.2)
--- NOTE | 2019-10-19 20:08 | RADIOLOGY REPORT (SQ) ---
EXAM DESCRIPTION: U/S RETROPERITON (RENAL/AORTA) IMAGES COMPLETED DATE/TIME: 10/19/2019 7:06 pm REASON FOR STUDY: L kidney pain COMPARISON: None. TECHNIQUE: Dynamic and static grayscale images acquired of the kidneys and bladder and recorded on P ACS. Additional selected color Doppler and spectral images recorded. LIMITATIONS: None. FINDINGS: RIGHT KIDNEY: The right kidney measures 10.7 x 4.8 x 4.7 cm, normal size. Normal echogeni city. No solid or suspicious masses. No hydronephrosis. No calcifications. LEFT KIDNEY: The left kidney measures 11.2 x 4.2 x 6.0 cm, normal size. Normal echogenicity. No taurus d or suspicious masses. No hydronephrosis. No calcifications. BLADDER: Bladder is incompletely distended. Bilateral ureteral jets are not visualized. OTHER FINDINGS: No other significant finding. IMPRESSION: 1. NORMAL RENAL ULTRASOUND. TECHNICAL DOCUMENTATION: JOB ID: [id number] 2010 [employer]- All Rights Reserved Reading location - IP/workstation name: [email or web address]
[2019-10-19 23:19] VITALS: BP 134/83
== END 2019-10-20 01:05 | disposition left against medical advice (07) ==
LOC: ER 17:19
DX: R10.9 Unspecified abdominal pain (principal); M54.9 Dorsalgia, unspecified; R33.9 Retention of urine, unspecified; R11.10 Vomiting, unspecified; Z88.0 Allergy status to penicillin; Z88.2 Allergy status to sulfonamides; J45.909 Unspecified asthma, uncomplicated
CPT/HCPCS: 36415; 76770; 80053; 85025; 99281

== ENCOUNTER 2019-10-22 17:46 | Emergency (ER) | payer BC ==
[2019-10-22] MEDS ORDERED: ONDANSETRON HCL INJ/PF 4 MG/2 ML SDV IV ONE (18:09)
[2019-10-22] MEDS ORDERED: NORMAL SALINE 1000 ML 1,000 ML IV ONE (18:09)
--- NOTE | 2019-10-22 18:13 | ER Document Report ---
ED Medical Screen (RME) - General Chief Complaint: Flank Pain Stated Complaint: FLANK PAIN/UNABLE TO URINATE Time Seen by Provider: 10/22/19 18:02 Primary Care Provider: AZRA SIMMONS DO [Primary Care Provider] - Follow up as needed Notes: Patient is a 34-year-old female with a history of chronic back pain who presents the emergency department with back pain that started 2 weeks ago. Patient states that she has not been able to urinate since yesterday at 2 PM. Prior to then, she did have some dysuria. She was in the emergency department on October 18, but did not provide urine at that time. Patient states that she feels like her symptoms are getting worse. Exam: Alert and oriented. I have greeted and performed a rapid initial assessment of this patient. A comprehensive ED assessment and evaluation of the patient, analysis of test results and completion of medical decision making process will be conducted by an additional ED providers. TRAVEL OUTSIDE OF THE [place] IN LAST 30 DAYS: No - Related Data Allergies/Adverse Reactions: amoxicillin [Amoxicillin] Allergy (Intermediate, Verified 10/14/19 16:18) Hives Penicillins Allergy (Intermediate, Verified 10/14/19 16:18) Hives Sulfa (Sulfonamide Antibiotics) Allergy (Intermediate, Verified 10/14/19 16:18) Hives Past Medical History - Social History Frequency of alcohol use: None Drug Abuse: None Family history: Reviewed & Not Pertinent - Past Medical History Cardiac Medical History: Denies: Hx Coronary Artery Disease, Hx Heart Attack, Hx Hypertension Pulmonary Medical History: Reports: Hx Asthma - CHILD, Hx Pneumonia - 2007 Denies: Hx Bronchitis, Hx COPD Neurological Medical History: Reports: Hx Migraine. Denies: Hx Cerebrovascular Accident, Hx Seizures Renal/ Medical History: Denies: Hx Peritoneal Dialysis Musculoskeltal Medical History: Reports Hx Arthritis - Chronic back pain, Reports Hx Musculoskeletal Trauma Psychiatric Medical History: Reports: Hx Anxiety Past Surgical History: Reports: Hx Oral Surgery, Hx Orthopedic Surgery - RIGHT SHOULDER - Immunizations Immunizations up to date: Yes Hx Diphtheria, Pertussis, Tetanus Vaccination: Yes Physical Exam - Vital signs Vitals: Temp Pulse Resp BP Pulse Ox 98.6 F 103 H 18 112/78 100 10/22/19 17:53 10/22/19 17:53 10/22/19 17:53 10/22/19 17:53 10/22/19 17:53 Course - Vital Signs Vital signs: Temp Pulse Resp BP Pulse Ox 98.6 F 103 H 18 112/78 100 10/22/19 17:53 10/22/19 17:53 10/22/19 17:53 10/22/19 17:53 10/22/19 17:53 Doctor's Discharge - Discharge Referrals: AZRA SIMMONS DO [Primary Care Provider] - Follow up as needed
--- NOTE | 2019-10-22 18:37 | ER Document Report ---
ED General - General Chief Complaint: Flank Pain Stated Complaint: FLANK PAIN/UNABLE TO URINATE Time Seen by Provider: 10/22/19 18:02 Primary Care Provider: AZRA SIMMONS DO [Primary Care Provider] - Follow up as needed Notes: Patient presents left leg pain, coming from her back to her left flank to her lower abdomen. Been going on really for several weeks. She has a history of back and abdominal problems and has been seeing multiple providers in the last few months including a spine surgeon who supposed to operate on her next month. She came in with urinary retention last week and had a normal MRI but somehow her primary was still thinking she had cauda equina. She says she takes some "leftover hydrocodone" but has been prescribed multiple controlled substances in the last few months by multiple different providers. No fever no injection drug use. She also says she has had lots of vomiting and cannot keep anything down despite taking Zofran at home. She has had decreased urine output as well. TRAVEL OUTSIDE OF THE [place] IN LAST 30 DAYS: No - Related Data Allergies/Adverse Reactions: amoxicillin [Amoxicillin] Allergy (Intermediate, Verified 10/14/19 16:18) Hives Penicillins Allergy (Intermediate, Verified 10/14/19 16:18) Hives Sulfa (Sulfonamide Antibiotics) Allergy (Intermediate, Verified 10/14/19 16:18) Hives Past Medical History - Social History Smoking Status: Unknown if Ever Smoked Frequency of alcohol use: None Drug Abuse: None Family History: Reviewed & Not Pertinent - Past Medical History Cardiac Medical History: Denies: Hx Coronary Artery Disease, Hx Heart Attack, Hx Hypertension Pulmonary Medical History: Reports: Hx Asthma - CHILD, Hx Pneumonia - 2007 Denies: Hx Bronchitis, Hx COPD Neurological Medical History: Reports: Hx Migraine. Denies: Hx Cerebrovascular Accident, Hx Seizures Renal/ Medical History: Denies: Hx Peritoneal Dialysis Musculoskeletal Medical History: Reports Hx Arthritis - Chronic back pain, Reports Hx Musculoskeletal Trauma Psychiatric Medical History: Reports: Hx Anxiety Past Surgical History: Reports: Hx Oral Surgery, Hx Orthopedic Surgery - RIGHT SHOULDER - Immunizations Immunizations up to date: Yes Hx Diphtheria, Pertussis, Tetanus Vaccination: Yes Review of Systems - Review of Systems Notes: REVIEW OF SYSTEMS GEN: Denies fever, chills, weight loss ENT: Denies sore throat, nasal discharge, ear pain EYES: Denies blurry vision, eye pain, discharge CV: Denies chest pain, palpitations, edema RESP: Denies cough, shortness of breath, wheezing GI: See HPI MSK: Denies joint pain/swelling, edema, SKIN: Denies rash, skin lesions LYMPH: Denies swollen glands/lymph nodes NEURO: Denies headache, focal weakness or numbness, dizziness PSYCH: Denies depression, suicidal or homicidal ideation PHYSICAL EXAMINATION General: No acute distress, well-nourished Head: Atraumatic, normocephalic ENT: Mouth normal, oropharynx moist, no exudates or tonsillar enlargement Eyes: Conjunctiva normal, pupils equal, lids normal Neck: No JVD, supple, no guarding CVS: Normal rate, regular rhythm, no murmurs Resp: No resp distress, equal and normal breath sounds bilaterally GI: Suprapubic tenderness ng Ext: No deformities, no edema, normal range of motion in upper and lower ext Back: No CVA or midline TTP Skin: No rash, warm Lymphatic: No lymphadeopathy noted Neuro: Awake, alert. Face symmetric. GCS 15. Physical Exam - Vital signs Vitals: Temp Pulse Resp BP Pulse Ox 98.6 F 103 H 18 112/78 100 10/22/19 17:53 10/22/19 17:53 10/22/19 17:53 10/22/19 17:53 10/22/19 17:53 Course - Re-evaluation Re-evalutation: 10/23/19 00:51 Recurrent left back and flank pain could be from lumbar disease as she has this quite commonly. Urinalysis and labs are negative. She has minimal tenderness there. Not have any other symptoms concerning for diverticulitis or other need for CT scan, and is tolerating p.o. spontaneously eating a pop tart in the ED. Patient stable for discharge home will give Phenergan suppositories and follow- up with primary care. Insert discharge I have discussed with the patient there likely diagnosis, aftercare plan, follow-up plans and my usual and customary return precautions. They verbalized understanding of this. - Vital Signs Vital signs: Temp Pulse Resp BP Pulse Ox 99.0 F 88 15 122/85 100 10/22/19 22:46 10/22/19 22:46 10/22/19 22:46 10/22/19 22:46 10/22/19 22:46 - Laboratory Result Diagrams: 10/22/19 18:59 10/22/19 18:59 Laboratory results interpreted by me: 10/22/19 10/22/19 10/22/19 18:59 18:59 19:20 MCH 26.7 L RDW 15.4 H Potassium 3.4 L Glucose 113 H Urine Protein 30 H Urine Urobilinogen 2.0 H 10/22/19 20:24 MCH RDW Potassium Glucose Urine Protein 30 H Urine Urobilinogen 2.0 H Procedures - Ultrasound/Bedside Ultrasound/Bedside Ultrasound: Other - Dynamic ultrasound guidance for IV placementsee separate IV note. - Additional Procedures IV insertion Additional Procedures: Other - Left deep brachial IV placement. Sterilized. Sterile probe cover used. Sterile lubricant used. Dynamic ultrasound guidance 20-gauge IV, placed successfully with flash, and flushed. Secured in usual fashion. See separate ultrasound procedure note. Discharge - Discharge Clinical Impression: Lower abdominal pain Condition: Good Disposition: HOME, SELF-CARE Instructions: Abdominal Pain ([facility]) Prescriptions: Promethazine HCl [Phenergan 25 mg Supp.rect] 1 supp DE Q6H #12 supp.rect Referrals: AZRA SIMMONS DO [Primary Care Provider] - Follow up as needed
[2019-10-22 19:11] LABS: ABSOLUTE LYMPHOCYTES (AUTO) 1.3 10^3/uL (0.5-4.7); ABSOLUTE MONOCYTES (AUTO) 0.7 10^3/uL (0.1-1.4); ABSOLUTE NEUT (AUTO) 6.2 10^3/uL (1.7-8.2); BASOPHILS % (AUTO) 0.3 % (0-2); EOSINOPHILS % (AUTO) 0.3 % (0-6); HEMATOCRIT 39.3 % (36.0-47.0); HEMOGLOBIN 13.2 g/dL (12.0-15.5); LYMPHOCYTES % (AUTO) 15.6 % (13-45); MEAN CORPUSCULAR HEMOGLOBIN 26.7 pg (27.0-33.4); MEAN CORPUSCULAR HGB CONC 33.5 g/dL (32.0-36.0); MEAN CORPUSCULAR VOLUME 80 fl (80-97); PLATELET COUNT 355 10^3/uL (150-450); RED BLOOD COUNT 4.94 10^6/uL (3.72-5.28); RED CELL DISTRIBUTION WIDTH 15.4 % (11.5-14.0); SEGMENTED NEUTROPHILS % (AUTO) 75.8 % (42-78); TOTAL CELLS COUNTED % (AUTO) 100 %; WHITE BLOOD COUNT 8.2 10^3/uL (4.0-10.5)
[2019-10-22 19:36] LABS: ALBUMIN 4.5 g/dL (3.5-5.0); ALKALINE PHOSPHATASE 57 U/L (38-126); ANION GAP 8 (5-19); ASPARTATE AMINO TRANSFERASE 21 U/L (14-36); BILIRUBIN,TOTAL 0.3 mg/dL (0.2-1.3); BLOOD UREA NITROGEN 14 mg/dL (7-20); CALCIUM 9.7 mg/dL (8.4-10.2); CARBON DIOXIDE 28 mmol/L (22-30); CHLORIDE 102 mmol/L (98-107); GLUCOSE 113 mg/dL (75-110); POTASSIUM 3.4 mmol/L (3.6-5.0); TOTAL PROTEIN 7.4 g/dL (6.3-8.2)
[2019-10-22 19:40] LABS: AMORPHOUS SEDIMENT,URINE 1+ /HPF; APPEARANCE,URINE TURBID; BILIRUBIN,URINE NEGATIVE (NEGATIVE); COLOR,URINE YELLOW; GLUCOSE, URINE NEGATIVE (NEGATIVE); KETONES,URINE NEGATIVE (NEGATIVE); LEUKOCYTE ESTERASE,URINE NEGATIVE (NEGATIVE); NITRITE,URINE NEGATIVE (NEGATIVE); PROTEIN,URINE 30 mg/dL (NEGATIVE); URINE SPECIFIC GRAVITY 1.018
[2019-10-22 21:44] LABS: AMORPHOUS SEDIMENT,URINE 1+ /HPF; APPEARANCE,URINE TURBID; BILIRUBIN,URINE NEGATIVE (NEGATIVE); COLOR,URINE YELLOW; GLUCOSE, URINE NEGATIVE (NEGATIVE); KETONES,URINE NEGATIVE (NEGATIVE); LEUKOCYTE ESTERASE,URINE NEGATIVE (NEGATIVE); NITRITE,URINE NEGATIVE (NEGATIVE); PROTEIN,URINE 30 mg/dL (NEGATIVE); URINE SPECIFIC GRAVITY 1.018
[2019-10-22 22:47] VITALS: BP 122/85
== END 2019-10-22 22:47 | disposition home or self-care (01) ==
LOC: ER 17:46
DX: R10.30 Lower abdominal pain, unspecified (principal); R10.9 Unspecified abdominal pain; R11.10 Vomiting, unspecified; R33.9 Retention of urine, unspecified
CPT/HCPCS: 99284; 96361; 96374; 36415; 85025; 80053; 81001; J2405; J7030

== ENCOUNTER 2019-10-25 16:52 | Emergency (ER) | payer BC ==
--- NOTE | 2019-10-25 18:21 | ER Document Report ---
ED Medical Screen (RME) - General Chief Complaint: Flank Pain Stated Complaint: LEFT FLANK PAIN Time Seen by Provider: 10/25/19 18:18 Primary Care Provider: AZRA SIMMONS DO [Primary Care Provider] - Follow up as needed Notes: HPI: History is obtained from the patient and the records. A 34-year-old female presenting again to the emergency department for ongoing back and flank pain issues. This is the patient's 12th visit to the emergency department in 1 month for same complaints. Patient has literally had essentially almost every test run in the last month including CTA of the chest, abdomen, pelvis, MRI of the thoracic and lumbar spine, multiple rounds of lab work, urinalysis and tox screens without acute findings. She states that she has been trying to follow- up with her primary and her spine doctor and they keep "sending me back to the ER". She then goes on to say that her primary was on vacation all last week. Patient states the pain continues in the left flank states she has had multiple episodes of vomiting at home and that she is very dehydrated although on review of her labs she does not spill ketones, does not have significant elevation of her hemoglobin and hematocrit or elevation of her creatinine to suggest severe dehydration. She states she is on gabapentin and has been on Lyrica and other rounds of pain medication. States she has tried all anti-emetics at home without resolution of her nausea PHYSICAL EXAMINATION: Patient is tearful at this time complains of pain through the left flank region. I discussed with the patient all of her test results from the last month indicating that she has had almost every test that can be run through the emergency department and really requires specialist follow-up if she cannot obtain this from referral to from the emergency department she needs to obtain the referral from primary care. Given the multiple repeat visits to the emergency department will have her further evaluated in the main emergency department by the physician staff to determine if there are any other studies or tests that might be of benefit to the patient. Patient is aware we will not give narcotic pain medicines in the [facility] area I have greeted and performed a rapid initial assessment of this patient. A comprehensive ED assessment and evaluation of the patient, analysis of test results and completion of medical decision making process will be conducted by an additional ED providers. TRAVEL OUTSIDE OF THE [place] IN LAST 30 DAYS: No - Related Data Allergies/Adverse Reactions: amoxicillin [Amoxicillin] Allergy (Intermediate, Verified 10/25/19 17:40) Hives Penicillins Allergy (Intermediate, Verified 10/25/19 17:40) Hives Sulfa (Sulfonamide Antibiotics) Allergy (Intermediate, Verified 10/25/19 17:40) Hives Home Medications: ... Past Medical History - Social History Chew tobacco use (# tins/day): No Frequency of alcohol use: None Drug Abuse: None Family history: Reviewed & Not Pertinent - Past Medical History Cardiac Medical History: Denies: Hx Coronary Artery Disease, Hx Heart Attack, Hx Hypertension Pulmonary Medical History: Reports: Hx Asthma - CHILD, Hx Pneumonia - 2007 Denies: Hx Bronchitis, Hx COPD Neurological Medical History: Reports: Hx Migraine. Denies: Hx Cerebrovascular Accident, Hx Seizures Renal/ Medical History: Denies: Hx Peritoneal Dialysis Musculoskeltal Medical History: Reports Hx Arthritis - Chronic back pain, Reports Hx Musculoskeletal Trauma Psychiatric Medical History: Reports: Hx Anxiety Past Surgical History: Reports: Hx Oral Surgery, Hx Orthopedic Surgery - RIGHT [facility] - Immunizations Immunizations up to date: Yes Hx Diphtheria, Pertussis, Tetanus Vaccination: Yes Physical Exam - Vital signs Vitals: Temp Pulse Resp BP Pulse Ox 98.7 F 92 19 156/106 H 100 10/25/19 17:01 10/25/19 17:01 10/25/19 17:01 10/25/19 17:01 10/25/19 17:01 Course - Vital Signs Vital signs: Temp Pulse Resp BP Pulse Ox 98.7 F 92 19 156/106 H 100 10/25/19 17:01 10/25/19 17:01 10/25/19 17:01 10/25/19 17:01 10/25/19 17:01 Doctor's Discharge - Discharge Referrals: AZRA SIMMONS DO [Primary Care Provider] - Follow up as needed
--- NOTE | 2019-10-25 20:51 | ER Document Report ---
ED GI/ - General TRAVEL OUTSIDE OF THE [place] IN LAST 30 DAYS: No - Related Data Home Medications: ... - General Chief Complaint: Flank Pain Stated Complaint: LEFT FLANK PAIN Time Seen by Provider: 10/25/19 18:18 Primary Care Provider: AZRA SIMMONS DO [Primary Care Provider] - Follow up in 3-5 days Notes: Patient is a 34-year-old female who presents emergency department with a chief complaint of left flank pain. Patient has had multiple studies here in emergency department to show that she has chronic pain. Patient is currently on ciprofloxacin. (GAYLEFRANSISCO Cosby) - Related Data Allergies/Adverse Reactions: amoxicillin [Amoxicillin] Allergy (Intermediate, Verified 10/25/19 17:40) Hives Penicillins Allergy (Intermediate, Verified 10/25/19 17:40) Hives Sulfa (Sulfonamide Antibiotics) Allergy (Intermediate, Verified 10/25/19 17:40) Hives Past Medical History - General Information source: Patient - Social History Smoking Status: Never Smoker Chew tobacco use (# tins/day): No Frequency of alcohol use: None Drug Abuse: None Family History: Reviewed & Not Pertinent Patient has homicidal ideation: No - Past Medical History Cardiac Medical History: Denies: Hx Coronary Artery Disease, Hx Heart Attack, Hx Hypertension Pulmonary Medical History: Reports: Hx Asthma - CHILD, Hx Pneumonia - 2007 Denies: Hx Bronchitis, Hx COPD Neurological Medical History: Reports: Hx Migraine. Denies: Hx Cerebrovascular Accident, Hx Seizures Renal/ Medical History: Denies: Hx Peritoneal Dialysis Musculoskeletal Medical History: Reports Hx Arthritis - Chronic back pain, Reports Hx Musculoskeletal Trauma Psychiatric Medical History: Reports: Hx Anxiety Past Surgical History: Reports: Hx Oral Surgery, Hx Orthopedic Surgery - RIGHT SHOULDER - Immunizations Immunizations up to date: Yes Hx Diphtheria, Pertussis, Tetanus Vaccination: Yes Review of Systems - Review of Systems Notes: REVIEW OF SYSTEMS: CONSTITUTIONAL : Denies recent illness. Denies recent unintentional weight loss. Denies fever, chills, or sweats. EENT: Denies eye, ear, throat, or mouth pain, discharge, or symptoms. Denies nasal or sinus congestion. CARDIOVASCULAR: Denies chest pain. RESPIRATORY: Denies shortness of breath, cough, congestion, difficulty breathing, or wheezing. GASTROINTESTINAL: Denies nausea, vomiting, and diarrhea. Denies abdominal pain. Denies constipation. GENITOURINARY: Denies difficulty urinating, burning, blood in urine, urgency or frequency. MUSCULOSKELETAL: See HPI. SKIN: Denies rash, itchiness, or lesions HEMATOLOGIC : Denies easy bruising or bleeding. LYMPHATIC: Denies swollen, painful, enlarged glands. NEUROLOGICAL: Denies no numbness or tingling denies weakness. Denies headache. Denies altered mental status. Denies alteration in speech. PSYCHIATRIC: Denies stress, anxiety, alteration in sleep patterns, or depression. All other systems reviewed and negative. (FRANSISCO ARAUJO) Physical Exam - General General appearance: Appears well, Alert, Anxious - HEENT Head: Normocephalic, Atraumatic - Respiratory Respiratory status: No respiratory distress - Cardiovascular Rhythm: Regular - Vital signs Vitals: Temp Pulse Resp BP Pulse Ox 98.7 F 92 19 156/106 H 100 10/25/19 17:01 10/25/19 17:01 10/25/19 17:01 10/25/19 17:01 10/25/19 17:01 Course - Re-evaluation Re-evalutation: 10/25/19 21:[address] Orta, my attending and since the patient has had multiple work-ups including an MRI recently, we will recheck her urine and send it for culture. We will also give her a dose of Decadron since she has not had 1 recently. We will also give her Toradol to help with her pain. Advised that she follow-up with pain management. Patient was able to walk to the restroom with no difficulty. Follow-up precautions were given. Verbal discharge instructions were given to the patient. They verbalized understanding. They are stable for discharge. 10/25/19 22:33 I was told by the Primary nurse that the patient refused the Decadron and Toradol. I told the nurse that there is not much more we can do for the patient, as this is a chronic pain issue. Charge nurse and nursing wash house supervisor are involved in this issue. (FRANSISCO ARAUJO) 10/26/19 00:11 Was asked to see the patient because she had severe back pain and refusing medications. The patient is very anxious and tearful stating that she is in severe pain and seen by her primary care physician this morning and given Decadron and Toradol in the office with no improvement. When she contacted them regarding the continued pain she was directed to come to the emergency department for further treatment. She does normally goes to the pain management clinic, is unclear whether she was discharged, states that she does not like them. I explained to the patient we are not in a position to manage her chronic pain from the emergency department and that her multiple visits to the emergency department with this pain issue is not an appropriate use of the emergency department. I have agreed to give her 1 dose of pain medication and something for her anxiety. Patient has agreed to that plan and will be discharged home once the medi cation has been given. (ONESIMO ORTA) - Vital Signs Vital signs: Temp Pulse Resp BP Pulse Ox 98.2 F 101 H 17 135/91 H 100 10/25/19 21:16 10/25/19 21:16 10/25/19 21:16 10/25/19 21:16 10/25/19 21:16 - Laboratory Laboratory results interpreted by me: 10/25/19 20:53 Urine Blood SMALL H Discharge - Discharge Clinical Impression: Left flank pain, Lumbar disc disease Condition: Good Disposition: HOME, SELF-CARE Additional Instructions: You were seen today in the emergency department for back pain. It is imperative that you follow-up with pain management in regards to your pain. You can follow-up with [facility] pain management if you do not want to go to [place] pain management. We also retested your urine and sent it for culture. We are also switching your antibiotic to Macrobid. Follow-up with your primary care provider in regards to this visit. Prescriptions: Nitrofurantoin Monohyd/M-Cryst [Macrobid 100 mg Capsule] 100 mg PO BID #10 cap Ondansetron [Zofran Odt 4 mg Tablet] 1 - 2 tab PO Q4H PRN #15 tab.rapdis PRN Reason: For Nausea/Vomiting Forms: Return to Work Referrals: AZRA SIMMONS DO [Primary Care Provider] - Follow up in 3-5 days
[2019-10-25] MEDS ORDERED: ONDANSETRON ODT 4 MG TAB (6 TAB/ER DISP) PO PRN (20:52)
[2019-10-25] MEDS ORDERED: KETOROLAC TROMETHAMINE 60 MG/2 ML SDV IM ONE (21:08)
[2019-10-25] MEDS ORDERED: DEXAMETHASONE SOD PHOS INJ 10 MG/1 ML VIAL IM ONE (21:08)
[2019-10-25] MEDS ORDERED: DEXAMETHASONE SOD PHOSPHATE INJ 4 MG/1 ML VIAL IM ONE (21:39)
[2019-10-25 21:54] LABS: APPEARANCE,URINE CLEAR; BILIRUBIN,URINE NEGATIVE (NEGATIVE); COLOR,URINE YELLOW; GLUCOSE, URINE NEGATIVE (NEGATIVE); KETONES,URINE NEGATIVE (NEGATIVE); PROTEIN,URINE NEGATIVE (NEGATIVE); UROBILINOGEN,URINE NEGATIVE mg/dL (<2.0)
[2019-10-25] MEDS ORDERED: HYDROMORPHONE HCL INJ/PF 2 MG/ML AMPULE IM ONE (23:37)
[2019-10-25] MEDS ORDERED: LORAZEPAM 1 MG TABLET PO ONE (23:37)
[2019-10-26 00:23] VITALS: BP 144/90
== END 2019-10-26 00:22 | disposition home or self-care (01) ==
LOC: ER 16:52
DX: R10.9 Unspecified abdominal pain (principal); M54.9 Dorsalgia, unspecified; M51.9 Unspecified thoracic, thoracolumbar and lumbosacral intervertebral disc disorder; G89.29 Other chronic pain; F41.9 Anxiety disorder, unspecified; Z88.0 Allergy status to penicillin; Z88.2 Allergy status to sulfonamides
CPT/HCPCS: 99284; 96372; 81001; J1170

== ENCOUNTER 2019-11-21 17:33 | Emergency (ER) | payer BC ==
[2019-11-21 17:41] VITALS: BP 115/79
--- NOTE | 2019-11-21 18:04 | ER Document Report ---
HPI - HPI Patient complains to provider of: Right arm rash Time Seen by Provider: 11/21/19 17:56 Onset: Other - 3 days Onset/Duration: Persistent Quality of pain: Burning Pain Level: 1 Context: Patient states she had an IV at another hospital 3 days ago and has had a rash to the area and some tenderness since then. Patient denies any fever. Associated Symptoms: Other - Right arm rash. denies: Shortness of breath Exacerbated by: Denies Relieved by: Denies Similar symptoms previously: No Recently seen / treated by doctor: Yes - ROS ROS below otherwise negative: Yes Systems Reviewed and Negative: Yes All other systems reviewed and negative - CONSTITUTIONAL Constitutional: DENIES: Fever, Chills - RESPIRATORY Respiratory: DENIES: Trouble Breathing - REPRODUCTIVE Reproductive: DENIES: : - MUSCULOSKELETAL Musculoskeletal: REPORTS: Extremity pain. DENIES: Swelling - DERM Skin Color: Erythema Skin Problems: Rash Past Medical History - General Information source: Patient - Social History Smoking Status: Never Smoker Frequency of alcohol use: None Drug Abuse: None Occupation: [employer] Lives with: Family Family History: Reviewed & Not Pertinent Patient has homicidal ideation: No Pulmonary Medical History: Reports: Hx Asthma - CHILD, Hx Pneumonia - 2007 Denies: Hx Bronchitis, Hx COPD Neurological Medical History: Reports: Hx Migraine. Denies: Hx Cerebrovascular Accident, Hx Seizures Renal/ Medical History: Denies: Hx Peritoneal Dialysis Musculoskeletal Medical History: Reports Hx Arthritis - Chronic back pain, Reports Hx Musculoskeletal Trauma Psychiatric Medical History: Reports: Hx Anxiety Past Surgical History: Reports: Hx Oral Surgery, Hx Orthopedic Surgery - RIGHT SHOULDER - Immunizations Immunizations up to date: Yes Hx Diphtheria, Pertussis, Tetanus Vaccination: Yes Vertical Provider Document - CONSTITUTIONAL Agree With Documented VS: Yes Exam Limitations: No Limitations General Appearance: WD/WN, No Apparent Distress - INFECTION CONTROL TRAVEL OUTSIDE OF THE [place] IN LAST 30 DAYS: No - HEENT HEENT: Atraumatic, Normocephalic - NECK Neck: Normal Inspection - CARDIOVASCULAR Pulses: Normal: Radial - BACK Back: Normal Inspection - MUSCULOSKELETAL/EXTREMETIES Musculoskeletal/Extremeties: MAEW, FROM - NEURO Level of Consciousness: Awake, Alert, Appropriate Motor/Sensory: No Motor Deficit - DERM Integumentary: Warm, Dry, Rash - Erythematous rash to the right antecubital area that is in the pattern consistent with a recent bandage. Tenderness at venipuncture site, no calor, no edema Course - Re-evaluation Re-evalutation: 11/21/19 18:03 Patient presents with tenderness at a previous venipuncture site, no surrounding evidence for infection at this time. Patient does have what looks to be a contact dermatitis likely a result of patient's bandage that have been securing her IV recently. No evidence for cellulitis, abscess, or superficial phlebitis, patient encouraged to elevate arm, apply warm compresses and avoid adhesives. - Vital Signs Vital signs: Temp Pulse Resp BP Pulse Ox 98.0 F 96 18 115/79 99 11/21/19 17:40 11/21/19 17:40 11/21/19 17:40 11/21/19 17:40 11/21/19 17:40 Discharge - Discharge Clinical Impression: Dermatitis Condition: Stable Disposition: HOME, SELF-CARE Instructions: Anti-Inflammatory Medication ([facility]), Warm Packs ([facility]) Additional Instructions: Return immediately for any new or worsening symptoms Followup with your primary care provider, call tomorrow to make a followup appointment Apply warm compresses to the arm as directed Avoid adhesive tape as you may be developing a sensitivity to this Prescriptions: Naproxen [Naprosyn 250 Nmg Tablet] 1 tab PO BID #14 tablet Referrals: AZRA SIMMONS DO [Primary Care Provider] - Follow up as needed
== END 2019-11-21 18:15 | disposition home or self-care (01) ==
LOC: ER 17:33
DX: L30.9 Dermatitis, unspecified (principal); R21 Rash and other nonspecific skin eruption; J45.909 Unspecified asthma, uncomplicated
CPT/HCPCS: 99282

== ENCOUNTER 2019-11-24 17:54 | Emergency (ER) | payer OTHER, BC ==
[2019-11-24] MEDS ORDERED: IBUPROFEN 600 MG TABLET PO ONE (18:43)
[2019-11-24] MEDS ORDERED: ACETAMINOPHEN SOLN 325 MG/10.15 ML UDCUP PO ONE (18:43)
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
[2019-11-25] MEDS ORDERED: HYDROMORPHONE HCL INJ/PF 2 MG/ML AMPULE IV ONE (02:51)
[2019-11-25] MEDS ORDERED: KETOROLAC TROMETHAMINE INJ/PF 30 MG/1 ML SDV IV ONE (02:52)
[2019-11-25] MEDS ORDERED: ONDANSETRON HCL INJ/PF 4 MG/2 ML SDV IV ONE (02:52)
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
[2019-11-25 04:00] VITALS: BP 129/82
== END 2019-11-25 03:59 | disposition home or self-care (01) ==
LOC: ER 17:54
DX: S60.042A Contusion of left ring finger without damage to nail, initial encounter (principal); S60.03 Contusion of middle finger without damage to nail; S80.11XA Contusion of right lower leg, initial encounter; S80.01XA Contusion of right knee, initial encounter; M54.2 Cervicalgia; R51 Headache; M54.5 Low back pain; M79.642 Pain in left hand; M25.532 Pain in left wrist; V49.40XA Driver injured in collision with unspecified motor vehicles in traffic accident, initial encounter; W22.11XA Striking against or struck by driver side automobile airbag, initial encounter; M47.812 Spondylosis without myelopathy or radiculopathy, cervical region; R42 Dizziness and giddiness; F41.9 Anxiety disorder, unspecified; Z79.899 Other long term (current) drug therapy; Z79.891 Long term (current) use of opiate analgesic; Z88.0 Allergy status to penicillin; Z88.2 Allergy status to sulfonamides; Z88.6 Allergy status to analgesic agent; Z88.5 Allergy status to narcotic agent; R00.0 Tachycardia, unspecified
CPT/HCPCS: 99285; 96374; 96375; 73130; 72110; 70450; 72125; J1885; J1170; J2405

== ENCOUNTER 2019-11-30 14:53 | Emergency (ER) | payer OTHER, BC ==
[2019-11-30 14:59] VITALS: BP 110/65
[2019-11-30] MEDS ORDERED: PROCHLORPERAZINE EDISYLATE INJ 10 MG/2 ML VIAL IV ONE (15:36)
[2019-11-30] MEDS ORDERED: KETOROLAC TROMETHAMINE INJ/PF 30 MG/1 ML SDV IV ONE (15:36)
[2019-11-30] MEDS ORDERED: DIPHENHYDRAMINE HCL 50 MG/ML VIAL IV ONE (15:36)
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
[2019-11-30] MEDS ORDERED: NORMAL SALINE 1000 ML 1,000 ML IV ONE (15:37)
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
== END 2019-11-30 17:35 | disposition home or self-care (01) ==
LOC: ER 14:53
DX: S80.12XA Contusion of left lower leg, initial encounter (principal); S80.11XA Contusion of right lower leg, initial encounter; R51 Headache; V43.53XA Car driver injured in collision with pick-up truck in traffic accident, initial encounter
CPT/HCPCS: 99284; 96361; 96374; 96375; 81025; 73564 ×2; 73590; J1200; J0780; J7030

== ENCOUNTER 2019-11-30 22:14 | Emergency (ER) | payer OTHER, BC ==
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
[2019-12-01] MEDS ORDERED: OXYCODONE HCL IR 5 MG TABLET PO ONE (04:48)
[2019-12-01] MEDS ORDERED: ACETAMINOPHEN 325 MG TABLET PO ONE (04:48)
[2019-12-01 05:16] VITALS: BP 131/91
== END 2019-12-01 05:29 | disposition home or self-care (01) ==
LOC: ER 22:14
DX: G89.29 Other chronic pain (principal); M79.605 Pain in left leg; M79.604 Pain in right leg; Z76.5 Malingerer [conscious simulation]; Z88.0 Allergy status to penicillin; Z88.2 Allergy status to sulfonamides
CPT/HCPCS: 99283

== ENCOUNTER 2019-12-01 05:30 | Emergency (ER) | payer OTHER, BC ==
[2019-12-01] MEDS ORDERED: PROCHLORPERAZINE EDISYLATE INJ 10 MG/2 ML VIAL IV ONE (09:07)
[2019-12-01] MEDS ORDERED: DIPHENHYDRAMINE HCL 50 MG/ML VIAL IV ONE (09:07)
[2019-12-01] MEDS ORDERED: NORMAL SALINE 1000 ML 1,000 ML IV ONE (09:07)
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
[2019-12-01] MEDS ORDERED: FENTANYL CITRATE INJ/PF 100 MCG/2 ML AMPUL IV ONE (10:37)
[2019-12-01 11:48] VITALS: BP 130/85
== END 2019-12-01 11:47 | disposition home or self-care (01) ==
LOC: ER 05:30
DX: F07.81 Postconcussional syndrome (principal); M79.604 Pain in right leg; M79.605 Pain in left leg; M54.5 Low back pain; R51 Headache; R11.2 Nausea with vomiting, unspecified; R42 Dizziness and giddiness; M54.9 Dorsalgia, unspecified; G89.29 Other chronic pain; V87.7XXA Person injured in collision between other specified motor vehicles (traffic), initial encounter; J45.909 Unspecified asthma, uncomplicated
CPT/HCPCS: 99284; 96361; 96374; 96375; J1200; J3010; J0780; J7030

== ENCOUNTER 2019-12-03 12:03 | Emergency (ER) | payer OTHER, BC ==
[2019-12-03] MEDS ORDERED: PROCHLORPERAZINE EDISYLATE INJ 10 MG/2 ML VIAL IM ONE (13:44)
[2019-12-03] MEDS ORDERED: DIPHENHYDRAMINE HCL 50 MG/ML VIAL IM ONE (13:44)
[2019-12-03] MEDS ORDERED: ONDANSETRON HCL INJ/PF 4 MG/2 ML SDV IM ONE (13:48)
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
[2019-12-03 14:25] VITALS: BP 128/85
== END 2019-12-03 14:25 | disposition home or self-care (01) ==
LOC: ER 12:03
DX: R51 Headache (principal); M54.9 Dorsalgia, unspecified; G89.29 Other chronic pain; V87.7XXA Person injured in collision between other specified motor vehicles (traffic), initial encounter; Z88.0 Allergy status to penicillin; Z88.2 Allergy status to sulfonamides; Z88.8 Allergy status to other drugs, medicaments and biological substances; J45.909 Unspecified asthma, uncomplicated
CPT/HCPCS: 99284; 96372; J1200; J0780; J2405

== ENCOUNTER 2019-12-09 20:07 | Emergency (ER) | payer BC, OTHER ==
[2019-12-09] MEDS ORDERED: ONDANSETRON 4 MG TAB.RAPDIS PO ONE (20:33)
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
[2019-12-10 01:00] LABS: ABSOLUTE BASOPHILS # (AUTO) 0.1 10^3/uL (0.0-0.2); ABSOLUTE LYMPHOCYTES (AUTO) 1.3 10^3/uL (0.5-4.7); ABSOLUTE MONOCYTES (AUTO) 0.5 10^3/uL (0.1-1.4); BASOPHILS % (AUTO) 0.7 % (0-2); EOSINOPHILS % (AUTO) 0.6 % (0-6); HEMATOCRIT 37.1 % (36.0-47.0); HEMOGLOBIN 12.6 g/dL (12.0-15.5); LYMPHOCYTES % (AUTO) 16.8 % (13-45); MEAN CORPUSCULAR HEMOGLOBIN 26.3 pg (27.0-33.4); MEAN CORPUSCULAR HGB CONC 33.8 g/dL (32.0-36.0); MEAN CORPUSCULAR VOLUME 78 fl (80-97); MONOCYTES % (AUTO) 6.2 % (3-13); PLATELET COUNT 371 10^3/uL (150-450); RED BLOOD COUNT 4.78 10^6/uL (3.72-5.28); RED CELL DISTRIBUTION WIDTH 16.3 % (11.5-14.0); SEGMENTED NEUTROPHILS % (AUTO) 75.7 % (42-78); TOTAL CELLS COUNTED % (AUTO) 100 %; WHITE BLOOD COUNT 7.9 10^3/uL (4.0-10.5)
[2019-12-10 01:17] LABS: ALBUMIN 4.7 g/dL (3.5-5.0); ALKALINE PHOSPHATASE 53 U/L (38-126); ANION GAP 12 (5-19); ASPARTATE AMINO TRANSFERASE 25 U/L (14-36); BILIRUBIN,DIRECT 0.2 mg/dL (0.0-0.4); BILIRUBIN,TOTAL 0.5 mg/dL (0.2-1.3); BLOOD UREA NITROGEN 10 mg/dL (7-20); CALCIUM 9.6 mg/dL (8.4-10.2); CARBON DIOXIDE 23 mmol/L (22-30); CHLORIDE 102 mmol/L (98-107); GLUCOSE 106 mg/dL (75-110); TOTAL PROTEIN 7.9 g/dL (6.3-8.2)
[2019-12-10 05:08] LABS: APPEARANCE,URINE CLEAR; BILIRUBIN,URINE NEGATIVE (NEGATIVE); COLOR,URINE YELLOW; GLUCOSE, URINE NEGATIVE (NEGATIVE); KETONES,URINE TRACE mg/dL (NEGATIVE); LEUKOCYTE ESTERASE,URINE NEGATIVE (NEGATIVE); NITRITE,URINE NEGATIVE (NEGATIVE); PROTEIN,URINE 30 mg/dL (NEGATIVE); URINE SPECIFIC GRAVITY 1.014; UROBILINOGEN,URINE NEGATIVE mg/dL (<2.0)
[2019-12-10] MEDS ORDERED: NORMAL SALINE 1000 ML 1,000 ML IV ONE (06:39)
[2019-12-10] MEDS ORDERED: POTASSIUM CHLORIDE 10 MEQ TABLET.ER PO ONE (06:48)
[2019-12-10] MEDS ORDERED: ONDANSETRON 4 MG TAB.RAPDIS PO ONE (06:49)
[2019-12-10] MEDS ORDERED: OXYCODONE-ACETAMINOPHEN 5-325 MG TABLET PO ONE ×2 (06:49→11:32)
[2019-12-10] MEDS: POTASSI CL 20 MEQ/50 ML RIDER 20 MEQ/50 ML RTUPB IV SCH ×2 (08:25→10:48)
--- NOTE | 2019-12-10 09:39 | RADIOLOGY REPORT (SQ) ---
EXAM DESCRIPTION: VENOUS BILATERAL LOWER IMAGES COMPLETED DATE/TIME: 12/10/2019 9:09 am REASON FOR STUDY: leg pain COMPARISON: None. TECHNIQUE: Dynamic and static jones scale and color images acquired of both lower extremity venous sy stems. Selected spectral images acquired with additional compression and augmentation maneuvers. Imag es stored on PACS. LIMITATIONS: None. FINDINGS: RIGHT LEG COMMON FEMORAL AND FEMORAL: Normal phasicity, compression and augmentation. No visualized echogenic m aterial on jones scale. No defects on color images. POPLITEAL: Normal compression and augmentation. No visualized echogenic material on jones scale. No de fects on color images. CALF VESSELS: Normal compression and augmentation. No visualized echogenic material on jones scale. No defects on color image. GSV AND SSV: Normal compression. No visualized echogenic material on jones scale. No defects on color images. ANY DEEP VENOUS INSUFFICIENCY: No. ANY EVIDENCE OF POPLITEAL CYST: No. OTHER: No other finding. LEFT LEG COMMON FEMORAL AND FEMORAL: Normal phasicity, compression and augmentation. No visualized echogenic m aterial on jones scale. No defects on color images. POPLITEAL: Normal compression and augmentation. No visualized echogenic material on jones scale. No de fects on color images. CALF VESSELS: Normal compression and augmentation. No visualized echogenic material on jones scale. No defects on color images. GSV AND SSV: Normal compression. No visualized echogenic material on jones scale. No defects on color images. ANY DEEP VENOUS INSUFFICIENCY: No. ANY EVIDENCE POPLITEAL CYST: No. OTHER: No other finding. IMPRESSION: NO EVIDENCE OF DVT OR SVT IN EITHER LEG. TECHNICAL DOCUMENTATION: JOB ID: [id number] 2010 [employer]- All Rights Reserved Reading location - IP/workstation name: [email or web address]
--- NOTE | 2019-12-10 09:50 | RADIOLOGY REPORT (SQ) ---
EXAM DESCRIPTION: CT HEAD WITHOUT IMAGES COMPLETED DATE/TIME: 12/10/2019 9:34 am REASON FOR STUDY: headache/htn/tachycardia COMPARISON: CT of the head without contrast from 11/24/2019. TECHNIQUE: Axial images acquired through the brain without intravenous contrast. Images reviewed wi th bone, brain and subdural windows. Additional sagittal and coronal reconstructions were generated. Images stored on PACS. All CT scanners at this facility use dose modulation, iterative reconstruction, and/or weight based d osing when appropriate to reduce radiation dose to as low as reasonably achievable (ALARA). [facility]: Dose Right [facility]: CareDose [facility]: Dose Right [facility]: Teradose 4D [facility]: [employer]: Words on [employer] RADIATION DOSE: CT Rad equipment meets quality standard of care and radiation dose reduction techniq ues were employed. CTDIvol: 53.2 mGy. DLP: 1044 mGy-cm. LIMITATIONS: None. FINDINGS: There is no acute intracranial hemorrhage, vascular territorial infarct, extra-axial fluid collection, mass effect or midline shift. The jones-white matter differentiation is preserved. The caliber of the ventricles is concordant with the degree of sulcation. There is no effacement of the cerebral sulci or basal subarachnoid cisterns. The orbits and globes are intact. The paranasal sinuses are clear. There is no fracture of the calv arium. IMPRESSION: No acute intracranial abnormality. EVIDENCE OF ACUTE STROKE: NO. COMMENT: Quality ID # 436: Final reports with documentation of one or more dose reduction techniques (e.g., Automated exposure control, adjustment of the mA and/or kV according to patient size, use of iterative reconstruction technique) TECHNICAL DOCUMENTATION: JOB ID: [id number] 2010 [employer]- All Rights Reserved Reading location - IP/workstation name: [email or web address]
--- NOTE | 2019-12-10 09:59 | RADIOLOGY REPORT (SQ) ---
EXAM DESCRIPTION: CTA CHEST IMAGES COMPLETED DATE/TIME: 12/10/2019 9:35 am REASON FOR STUDY: chest tightness/tachycardia COMPARISON: None. TECHNIQUE: CT scan of the chest performed using helical scanning technique with dynamic intravenous contrast injection. Images reviewed with lung, soft tissue and bone windows. Reconstructed coronal and sagittal MPR images reviewed. Additional 3 dimensional post-processing performed to develop Maximal Intensity Projection images (PA P). All images stored on PACS. All CT scanners at this facility use dose modulation, iterative reconstruction, and/or weight based d osing when appropriate to reduce radiation dose to as low as reasonably achievable (ALARA). [facility]: Dose Right [facility]: CareDose [facility]: Dose Right [facility]: Teradose 4D [facility]: Dot VN CONTRAST TYPE AND DOSE: Contrast/concentration: Isovue 350.00 mmol/ml; Total Contrast Delivered: 51. 0 ml; Total Saline Delivered: 70.0 ml Contrast bolus optimized for the pulmonary arteries. RENAL FUNCTION: None required. The patient is less than 50 years old. RADIATION DOSE: CT Rad equipment meets quality standard of care and radiation dose reduction techniq ues were employed. CTDIvol: 6.6 - 29.8 mGy. DLP: 1082 mGy-cm. LIMITATIONS: None. FINDINGS: LUNGS AND PLEURA: The trachea and main bronchi are patent. There is no consolidation, more und-glass opacification, pleural effusion or pneumothorax. AORTA AND GREAT VESSELS: No aneurysm or dissection of the thoracic aorta HEART: No pericardial effusion. No cardiomegaly or atherosclerotic calcification of the coronary precious nolan. PULMONARY ARTERIES: No emboli. HILAR AND MEDIASTINAL STRUCTURES: No adenopathy or mass. HARDWARE: None in the chest. UPPER ABDOMEN: No acute findings. THYROID AND OTHER SOFT TISSUES: No adenopathy or mass. BONES: No acute fracture. 3D MIPS: Confirm above findings. OTHER: No other finding. IMPRESSION: No acute cardiopulmonary process and no pulmonary emboli. COMMENT: Quality ID # [id number]: Final reports with documentation of one or more dose reduction techniques (e.g., Automated exposure control, adjustment of the mA and/or kV according to patient size, use of iterative reconstruction technique) TECHNICAL DOCUMENTATION: JOB ID: [id number] 2010 [employer]- All Rights Reserved Reading location - IP/workstation name: [email or web address]
[2019-12-10 10:51] LABS: URINE AMPHETAMINES SCREEN NEGATIVE; URINE BARBITURATES SCREEN NEGATIVE; URINE BENZODIAZEPINES SCREEN NEGATIVE; URINE COCAINE SCREEN NEGATIVE; URINE MARIJUANA (THC) SCREEN NEGATIVE; URINE METHADONE SCREEN NEGATIVE; URINE PHENCYCLIDINE SCREEN NEGATIVE
[2019-12-10] MEDS ORDERED: METOPROLOL SUCCINATE 25 MG TAB.SR.24H PO ONE (11:31)
[2019-12-10] MEDS ORDERED: HYDROCHLOROTHIAZIDE 12.5 MG TABLET PO ONE (11:32)
[2019-12-10] MEDS ORDERED: LISINOPRIL 10 MG TABLET PO ONE (11:32)
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
[2019-12-10 14:50] VITALS: BP 111/76
--- NOTE | 2019-12-10 21:03 | EKG REPORT ---
SEVERITY:- BORDERLINE ECG - SINUS RHYTHM BORDERLINE T ABNORMALITIES, ANTERIOR LEADS BORDERLINE PROLONGED QT INTERVAL : Confirmed by: Shelly Lazar 10-Dec-2019 21:02:21
== END 2019-12-10 14:51 | disposition home or self-care (01) ==
LOC: ER 20:07
DX: R00.0 Tachycardia, unspecified (principal); E87.6 Hypokalemia; I10 Essential (primary) hypertension; M54.9 Dorsalgia, unspecified; G89.29 Other chronic pain; M79.10 Myalgia, unspecified site; R11.10 Vomiting, unspecified; Z88.0 Allergy status to penicillin; Z88.2 Allergy status to sulfonamides; Z88.8 Allergy status to other drugs, medicaments and biological substances; J45.909 Unspecified asthma, uncomplicated; Z79.899 Other long term (current) drug therapy
CPT/HCPCS: 93005; 99285; 96365; 96366; 36415; 82550; 84702; 85025; 80053; 81001; 84484; 80307; 85379; 93970; 70450; 71275; 93010; S0119 ×2; J3480; J7030

== ENCOUNTER 2019-12-11 16:08 | Emergency (ER) | payer BC ==
[2019-12-11 17:11] VITALS: BP 120/81
--- NOTE | 2019-12-11 17:24 | ER Document Report ---
ED General - General Chief Complaint: Shortness Of Breath Stated Complaint: SHORT OF BREATH,HEADACHE,NAUSEA Time Seen by Provider: 12/11/19 17:13 Primary Care Provider: MATEO GUPTA MD [ACTIVE STAFF] - Follow up as needed ROSE MARY CARPENTER PA-C [Primary Care Provider] - 12/13/19 MEGHAN MAZA MD [ACTIVE STAFF] - 12/13/19 12:30 pm Mode of Arrival: Ambulatory Information source: Patient TRAVEL OUTSIDE OF THE [place] IN LAST 30 DAYS: No - HPI Notes: 34-year-old female presents emergency room for concerns of having periods of apnea while she was sleeping and chest pain. Patient yesterday had a full PE work-up with a CTA, venous Dopplers which came back negative, she also had a CT of her head she was complaining of a headache due to hypertension. Patient was placed on metoprolol for her sinus tachycardia, has an appointment with Dr. Bernardo, supervisor type photography Friday at 1230 for follow-up. Patient yesterday had a potassium of 3.0, was given oral replacement and started on K-Sarah outpatient. MEDICATIONS: I agree with the patient medications as charted by the RN. ALLERGIES: I agree with the allergies as charted by the RN. PAST MEDICAL HISTORY/PAST SURGICAL HISTORY: Reviewed and agree as charted by RN. SOCIAL HISTORY: Reviewed and agree as charted by RN. FAMILY HISTORY: No significant familial comorbid conditions directly related to patient complaint EXAM: Reviewed vital signs as charted by RN. REVIEW OF SYSTEMS:reviewed vital signs by RN CONSTITUTIONAL : Denies fever, chills, or sweats. Denies recent illness. EENT: Denies eye, ear, throat, or mouth pain or symptoms. Denies nasal or sinus congestion or discharge. Denies throat, tongue, or mouth swelling or difficulty swallowing. CARDIOVASCULAR: Denies chest pain. Denies palpitations or racing or irregular heart beat. Denies ankle edema. RESPIRATORY: Denies cough, cold, or chest congestion. Denies shortness of breath, difficulty breathing, or wheezing. GASTROINTESTINAL: Denies abdominal pain or distention. Denies nausea, vomiting, or diarrhea. Denies blood in vomitus, stools, or per rectum. Denies black, tarry stools. Denies constipation. GENITOURINARY: Denies difficulty urinating, painful urination, burning, frequency, blood in urine, or discharge. FEMALE GENITOURINARY: Denies vaginal bleeding, heavy or abnormal periods, irregular periods. Denies vaginal discharge or odor. MUSCULOSKELETAL: Denies back or neck pain or stiffness. Denies joint pain or swelling. SKIN: Denies rash, lesions or sores. HEMATOLOGIC : Denies easy bruising or bleeding. LYMPHATIC: Denies swollen, enlarged glands. NEUROLOGICAL: Denies confusion or altered mental status. Denies passing out or loss of consciousness. Denies dizziness or lightheadedness. Denies headache. Denies weakness or paralysis or loss of use of either side. Denies problems with gait or speech. Denies sensory loss, numbness, or tingling. Denies seizures. PSYCHIATRIC: Denies anxiety or stress. Denies depression, suicidal ideation, or homicidal ideation. ALL OTHER SYSTEMS REVIEWED AND NEGATIVE. PHYSICAL EXAMINATION: GENERAL: Well-appearing, well-nourished and in no acute distress. HEAD: Atraumatic, normocephalic. EYES: Pupils equal round and reactive to light, extraocular movements intact, conjunctiva are normal. ENT: Nares patent, oropharynx clear without exudates. Moist mucous membranes. NECK: Normal range of motion, supple without lymphadenopathy LUNGS: Breath sounds clear to auscultation bilaterally and equal. No wheezes rales or rhonchi. HEART: Sinus tachycardia. Regular rhythm without murmurs ABDOMEN: Soft, nontender, nondistended abdomen. No guarding, no rebound. No masses appreciated. Female : deferred Musculoskeletal: Normal range of motion, no pitting or edema. No cyanosis. NEUROLOGICAL: Cranial nerves grossly intact. Normal speech, normal gait. Normal sensory, motor exams PSYCH: Normal mood, normal affect. SKIN: Warm, Dry, normal turgor, no rashes or lesions noted. Dictation was performed using [employer] voice recognition software - Related Data Allergies/Adverse Reactions: amoxicillin [Amoxicillin] Allergy (Intermediate, Verified 12/10/19 05:21) Hives Penicillins Allergy (Intermediate, Verified 12/10/19 05:21) Hives Sulfa (Sulfonamide Antibiotics) Allergy (Intermediate, Verified 12/10/19 05:21) Hives morphine Allergy (Mild, Verified 12/10/19 05:21) Hives ketorolac [From Toradol] Allergy (Verified 12/10/19 05:21) Past Medical History - General Information source: Patient - Social History Smoking Status: Unknown if Ever Smoked Family History: Reviewed & Not Pertinent - Past Medical History Cardiac Medical History: Reports: Hx Hypertension Denies: Hx Coronary Artery Disease, Hx Heart Attack Pulmonary Medical History: Reports: Hx Asthma - CHILD, Hx Pneumonia - 2007 Denies: Hx Bronchitis, Hx COPD Neurological Medical History: Reports: Hx Migraine. Denies: Hx Cerebrovascular Accident, Hx Seizures Renal/ Medical History: Denies: Hx Peritoneal Dialysis Musculoskeletal Medical History: Reports Hx Arthritis - Chronic back pain, Reports Hx Musculoskeletal Trauma - bilateral LE Psychiatric Medical History: Reports: Hx Anxiety Traumatic Medical History: Reports: Hx Spine Fracture - cervical and lumbar 2019 Past Surgical History: Reports: Hx Oral Surgery, Hx Orthopedic Surgery - RIGHT SHOULDER - Immunizations Immunizations up to date: Yes Hx Diphtheria, Pertussis, Tetanus Vaccination: Yes Physical Exam - Vital signs Vitals: Temp Pulse Resp BP Pulse Ox 98.5 F 106 H 18 120/81 100 12/11/19 17:06 12/11/19 17:06 12/11/19 17:06 12/11/19 17:06 12/11/19 17:06 Course - Re-evaluation Re-evalutation: 12/11/19 18:48 Afebrile vitals stable was slightly tachycardic with manual heart rate at 105. Patient states that she did take her metoprolol today as well as her potassium replacement. Patient received IV fluids. Chest x-ray negative for any acute findings, unremarkable. CBC negative for leukocytosis or anemia, CMP negative for hepatic or renal dysfunction, troponin less than 0.012. Potassium was 4.0, no replacement needed patient's heart score 0 giving her a risk of myocardial infarction of 0.9 to 1.7%. COVID test pending. Discussed yesterday's work-up with Dr. Cesar, ER supervising physician is here today, feel that she needs any further cardiac work-up. Patient has an appointment with Dr. Bernardo, supervisor type photography Friday at 1230 and advised her to keep. Advised to take Metroprolol as directed. Patient referred to pulmonology for possible sleep study as needed. After performing a Medical Screening Examination, I estimate there is LOW risk for RUPTURED ESOPHAGUS, PNEUMOTHORAX, PULMONARY EMBOLISM, ACUTE CORONARY SYNDROME, OR THORACIC AORTIC DISSECTION, thus I consider the discharge disposition reasonable. I have reevaluated this patient multiple times and no significant life threatening changes are noted. The patient and I have discussed the diagnosis and risks, and we agree with discharging home with close follow- up. We also discussed returning to the Emergency Department immediately if new or worsening symptoms occur. We have discussed the symptoms which are most concerning (e.g., bloody sputum, worsening pain or shortness of breath) that necessitate immediate return. 12/11/19 19:17 - Vital Signs Vital signs: Temp Pulse Resp BP Pulse Ox 98.5 F 106 H 18 120/81 100 12/11/19 17:13 12/11/19 17:06 12/11/19 17:06 12/11/19 17:06 12/11/19 17:06 - Laboratory Result Diagrams: 12/11/19 18:00 12/11/19 18:00 Laboratory results interpreted by me: 12/11/19 12/11/19 18:00 18:00 MCV 79 L MCH 26.7 L RDW 16.8 H Lymph % (Auto) 6.3 L [place] % (Auto) 2.4 L Seg Neutrophils % 90.6 H Glucose 124 H Discharge - Discharge Clinical Impression: Sinus tachycardia, Shortness of breath, Chest pain of unknown etiology Clinical Impression: (Ruled Out): chest pain Condition: Stable Disposition: HOME, SELF-CARE Instructions: Sinus Tachycardia ([facility]), Beta Blockers ([facility]) Additional Instructions: You had a complete and full pulmonary embolism work-up done yesterday with a CT angiogram of your chest which was negative, bilateral lower extremity venous Dopplers for a blood clot which was negative, a CT of your head for complaints of headache related to blood pressure which was negative, you were started on metoprolol for your heart rate, your potassium was replaced yesterday. Today your potassium was completely normal, your labs are completely normal. You were given IV fluids. Your chest x-ray was normal, your EKG was normal. Please go to your already established appointment with Dr. Bernardo, supervisor type photography on Friday at 1230 as well as following up with your primary care provider. I also did give you a referral to a dredging inspector for your intermittent periods where you feel like you are apneic at night for evaluation for possible sleep study. You also have been tested for COVID today which results are pending. Is advised that you self quarantine m to possibly do not spread the virus, wash hands thoroughly, wear your face mask when around any of your housemates until your COVID results are known Return immediately for any new or worsening symptoms. Follow up with primary care provider, call tomorrow to make followup appointment. Referrals: ROSE MARY CARPENTER PA-C [Primary Care Provider] - 12/13/19 MATEO GUPTA MD [ACTIVE STAFF] - Follow up as needed MEGHAN MAZA MD [ACTIVE STAFF] - 12/13/19 12:30 pm
--- NOTE | 2019-12-11 17:56 | RADIOLOGY REPORT (SQ) ---
EXAM DESCRIPTION: CHEST SINGLE VIEW IMAGES COMPLETED DATE/TIME: 12/11/2019 4:34 pm REASON FOR STUDY: ese lozada COMPARISON: 10/12/2019 EXAM PARAMETERS: NUMBER OF VIEWS: One view. TECHNIQUE: Single frontal radiographic view of the chest acquired. RADIATION DOSE: NA LIMITATIONS: None. FINDINGS: LUNGS AND PLEURA: No opacities, masses or pneumothorax. No pleural effusion. MEDIASTINUM AND HILAR STRUCTURES: No masses. Contour normal. HEART AND VASCULAR STRUCTURES: Heart normal in size. Normal vasculature. BONES: No acute findings. HARDWARE: None in the chest. OTHER: No other significant finding. IMPRESSION: NO ACUTE RADIOGRAPHIC FINDING IN THE CHEST. TECHNICAL DOCUMENTATION: JOB ID: [id number] [employer]- All Rights Reserved Reading location - IP/workstation name: [email or web address]
[2019-12-11] MEDS ORDERED: NORMAL SALINE 1000 ML 1,000 ML IV ONE (18:16)
[2019-12-11 18:18] LABS: ABSOLUTE LYMPHOCYTES (AUTO) 0.5 10^3/uL (0.5-4.7); ABSOLUTE MONOCYTES (AUTO) 0.2 10^3/uL (0.1-1.4); ABSOLUTE NEUT (AUTO) 6.9 10^3/uL (1.7-8.2); BASOPHILS % (AUTO) 0.6 % (0-2); EOSINOPHILS % (AUTO) 0.1 % (0-6); HEMATOCRIT 39.9 % (36.0-47.0); HEMOGLOBIN 13.6 g/dL (12.0-15.5); LYMPHOCYTES % (AUTO) 6.3 % (13-45); MEAN CORPUSCULAR HEMOGLOBIN 26.7 pg (27.0-33.4); MEAN CORPUSCULAR VOLUME 79 fl (80-97); MONOCYTES % (AUTO) 2.4 % (3-13); PLATELET COUNT 337 10^3/uL (150-450); RED BLOOD COUNT 5.08 10^6/uL (3.72-5.28); RED CELL DISTRIBUTION WIDTH 16.8 % (11.5-14.0); SEGMENTED NEUTROPHILS % (AUTO) 90.6 % (42-78); TOTAL CELLS COUNTED % (AUTO) 100 %; WHITE BLOOD COUNT 7.6 10^3/uL (4.0-10.5)
[2019-12-11 18:35] LABS: URINE AMPHETAMINES SCREEN NEGATIVE; URINE BARBITURATES SCREEN NEGATIVE; URINE BENZODIAZEPINES SCREEN NEGATIVE; URINE COCAINE SCREEN NEGATIVE; URINE MARIJUANA (THC) SCREEN NEGATIVE; URINE METHADONE SCREEN NEGATIVE; URINE PHENCYCLIDINE SCREEN NEGATIVE
[2019-12-11 18:35] LABS: ANION GAP 11 (5-19); BLOOD UREA NITROGEN 12 mg/dL (7-20); CALCIUM 9.9 mg/dL (8.4-10.2); CARBON DIOXIDE 24 mmol/L (22-30); CHLORIDE 103 mmol/L (98-107); GLUCOSE 124 mg/dL (75-110)
--- NOTE | 2019-12-12 20:26 | EKG REPORT ---
SEVERITY:- BORDERLINE ECG - SINUS RHYTHM BORDERLINE T ABNORMALITIES, ANTERIOR LEADS BORDERLINE PROLONGED QT INTERVAL : Confirmed by: Shelly Lazar 12-Dec-2019 20:25:46
== END 2019-12-11 19:48 | disposition home or self-care (01) ==
LOC: ER 16:08
DX: R11.0 Nausea (principal); R00.0 Tachycardia, unspecified; R51 Headache; R07.9 Chest pain, unspecified; R06.02 Shortness of breath; Z20.828 Contact with and (suspected) exposure to other viral communicable diseases; I10 Essential (primary) hypertension
CPT/HCPCS: 93005; 99285; 36415; 85025; 80048; 84484; 80307; 71045; 93010; U0003; C9803; 87635

== ENCOUNTER 2019-12-20 17:15 | Emergency (ER) | payer BC ==
[2019-12-20] MEDS ORDERED: ONDANSETRON HCL INJ/PF 4 MG/2 ML SDV IV ONE (17:42)
[2019-12-20] MEDS ORDERED: NORMAL SALINE 1000 ML 1,000 ML IV ONE ×2 (17:43→21:33)
--- NOTE | 2019-12-20 17:49 | ER Document Report ---
ED Medical Screen (RME) - General Chief Complaint: Vomiting Stated Complaint: VOMITING,CHILLS Time Seen by Provider: 12/20/19 17:33 Primary Care Provider: ROSE MARY CARPENTER PA-C [Primary Care Provider] - Follow up as needed TRAVEL OUTSIDE OF THE [place] IN LAST 30 DAYS: No - HPI Notes: 12/20/19 17:47 34-year-old female to the emergency department with complaints of nausea and vomiting for the past 4 days. She states she has upper abdominal pain. She reports she thinks she may have taken too many [place] last night. She states she took 4 and 1 setting. She denies any fevers. She admits to chills and sweating when she is vomiting. She denies any urinary complaints. She had a negative covid test on December 10. She denies any possible exposures to COVID-19 positive patients since her last visit with us. Denies any other complaints. I performed a brief medical screening exam on the patient determined that the patient needs further evaluation and management by main side provider. I have placed initial orders to help expedite care. - Related Data Allergies/Adverse Reactions: amoxicillin [Amoxicillin] Allergy (Intermediate, Verified 12/10/19 05:21) Hives Penicillins Allergy (Intermediate, Verified 12/10/19 05:21) Hives Sulfa (Sulfonamide Antibiotics) Allergy (Intermediate, Verified 12/10/19 05:21) Hives morphine Allergy (Mild, Verified 12/10/19 05:21) Hives ketorolac [From Toradol] Allergy (Verified 12/10/19 05:21) Past Medical History - Social History Family history: Reviewed & Not Pertinent - Past Medical History Cardiac Medical History: Reports: Hx Hypertension Denies: Hx Coronary Artery Disease, Hx Heart Attack Pulmonary Medical History: Reports: Hx Asthma - CHILD, Hx Pneumonia - 2007 Denies: Hx Bronchitis, Hx COPD Neurological Medical History: Reports: Hx Migraine. Denies: Hx Cerebrovascular Accident, Hx Seizures Renal/ Medical History: Denies: Hx Peritoneal Dialysis Musculoskeltal Medical History: Reports Hx Arthritis - Chronic back pain, Reports Hx Musculoskeletal Trauma - bilateral LE Psychiatric Medical History: Reports: Hx Anxiety Traumatic Medical History: Reports: Hx Spine Fracture - cervical and lumbar 2019 Past Surgical History: Reports: Hx Oral Surgery, Hx Orthopedic Surgery - RIGHT SHOULDER - Immunizations Immunizations up to date: Yes Hx Diphtheria, Pertussis, Tetanus Vaccination: Yes Physical Exam - Vital signs Vitals: Temp Pulse Resp BP Pulse Ox 97.5 F 134 H 18 133/98 H 100 12/20/19 17:23 12/20/19 17:23 12/20/19 17:23 12/20/19 17:23 12/20/19 17:23 Course - Vital Signs Vital signs: Temp Pulse Resp BP Pulse Ox 97.5 F 134 H 18 133/98 H 100 12/20/19 17:23 12/20/19 17:23 12/20/19 17:23 12/20/19 17:23 12/20/19 17:23 Doctor's Discharge - Discharge Referrals: ROSE MARY CARPENTER PA-C [Primary Care Provider] - Follow up as needed
[2019-12-20 19:10] LABS: ABSOLUTE MONOCYTES (AUTO) 0.4 10^3/uL (0.1-1.4); ABSOLUTE NEUT (AUTO) 9.2 10^3/uL (1.7-8.2); BASOPHILS % (AUTO) 0.4 % (0-2); EOSINOPHILS % (AUTO) 0.1 % (0-6); HEMATOCRIT 42.4 % (36.0-47.0); HEMOGLOBIN 14.7 g/dL (12.0-15.5); LYMPHOCYTES % (AUTO) 9.1 % (13-45); MEAN CORPUSCULAR HEMOGLOBIN 27.1 pg (27.0-33.4); MEAN CORPUSCULAR HGB CONC 34.7 g/dL (32.0-36.0); MEAN CORPUSCULAR VOLUME 78 fl (80-97); PLATELET COUNT 474 10^3/uL (150-450); RED BLOOD COUNT 5.44 10^6/uL (3.72-5.28); RED CELL DISTRIBUTION WIDTH 16.9 % (11.5-14.0); SEGMENTED NEUTROPHILS % (AUTO) 86.4 % (42-78); TOTAL CELLS COUNTED % (AUTO) 100 %; WHITE BLOOD COUNT 10.7 10^3/uL (4.0-10.5)
[2019-12-20 19:22] LABS: ACETAMINOPHEN 12 ug/mL (10-30); ALBUMIN 5.1 g/dL (3.5-5.0); ALKALINE PHOSPHATASE 68 U/L (38-126); ANION GAP 18 (5-19); ASPARTATE AMINO TRANSFERASE 21 U/L (14-36); BILIRUBIN,DIRECT 0.4 mg/dL (0.0-0.4); BILIRUBIN,TOTAL 0.7 mg/dL (0.2-1.3); BLOOD UREA NITROGEN 16 mg/dL (7-20); CALCIUM 10.5 mg/dL (8.4-10.2); CARBON DIOXIDE 22 mmol/L (22-30); CHLORIDE 95 mmol/L (98-107); GLUCOSE 109 mg/dL (75-110); POTASSIUM 3.6 mmol/L (3.6-5.0); TOTAL PROTEIN 8.1 g/dL (6.3-8.2)
[2019-12-20] MEDS ORDERED: MAG HYDROX/AL HYDROX/SIMETH SUSP 30 ML UDCUP PO ONE (20:12)
[2019-12-20] MEDS ORDERED: FAMOTIDINE INJ/PF 20 MG/2 ML SDV IV ONE (20:13)
[2019-12-20] MEDS ORDERED: LIDOCAINE 2% VISCOUS SOLN 15 ML UDCUP PO ONE (20:13)
[2019-12-20] MEDS ORDERED: METOCLOPRAMIDE HCL ORAL SOLN 10 MG/10 ML UDCUP PO ONE (20:13)
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
--- NOTE | 2019-12-20 21:21 | RADIOLOGY REPORT (SQ) ---
EXAM DESCRIPTION: US ABDOMEN LIMITED COMPLETED DATE/TME: 12/20/2019 20:12 CLINICAL HISTORY: 34 years, Female, EPIG PAIN N/V WITH EATING COMPARISON: CT chest 12/10/2019. FINDINGS: Suspected fatty liver. No suspicious focal lesion. Gallbladder distended. No suspicious stones or wall thickening. Incidental 6 mm nondependent gallbladder polyp. No evidence for biliary dilatation. Common bile duct measures 3 mm. Right kidney within normal limits. Pancreas not well visualized because of gas. Was normal and CT chest from 12/10/2019. IMPRESSION: 1. Fatty liver. 2. Distended gallbladder without acute findings. Incidental 6 mm polyp.
[2019-12-20 21:24] LABS: APPEARANCE,URINE CLOUDY; BILIRUBIN,URINE NEGATIVE (NEGATIVE); COLOR,URINE YELLOW; GLUCOSE, URINE NEGATIVE (NEGATIVE); KETONES,URINE 80 mg/dL (NEGATIVE); PROTEIN,URINE 100 mg/dL (NEGATIVE); URINE SPECIFIC GRAVITY 1.031; UROBILINOGEN,URINE NEGATIVE mg/dL (<2.0)
[2019-12-20] MEDS ORDERED: ONDANSETRON ODT 4 MG TAB (6 TAB/ER DISP) PO PRN (21:55)
[2019-12-20 23:08] LABS: URINE AMPHETAMINES SCREEN NEGATIVE; URINE BARBITURATES SCREEN NEGATIVE; URINE BENZODIAZEPINES SCREEN NEGATIVE; URINE COCAINE SCREEN NEGATIVE; URINE MARIJUANA (THC) SCREEN NEGATIVE; URINE METHADONE SCREEN NEGATIVE; URINE PHENCYCLIDINE SCREEN NEGATIVE
[2019-12-20] MEDS ORDERED: PREGABALIN 100 MG CAPSULE PO ONE (23:14)
[2019-12-20] MEDS ORDERED: TIZANIDINE HCL 4 MG TABLET PO ONE (23:16)
[2019-12-20 23:21] LABS: ALCOHOL < 10 mg/dL (NONE DETECTED); SALICYLATE < 1.0 mg/dL (2.0-20.0)
--- NOTE | 2019-12-21 06:53 | ER Document Report ---
Doctor's Note Notes: 12/21/19 06:52 Notified by nurse that patient systolic blood pressure was 88 manually. States that patient slept throughout the night in no distress. Patient is arousable. Will give IV fluids given the hypotension. Dr. Newton aware
--- NOTE | 2019-12-21 07:21 | EKG REPORT ---
SEVERITY:- NORMAL ECG - SINUS RHYTHM : Confirmed by: David Rosales MD 21-Dec-2019 07:20:15
[2019-12-21] MEDS ORDERED: NORMAL SALINE 1000 ML 1,000 ML IV ONE (07:46)
--- NOTE | 2019-12-21 10:44 | ER Document Report ---
Doctor's Note Notes: 12/21/19 10:43 Notified by nursing staff the patient still has hypotension with a blood pressure 82/37. Case was staffed with ED attending Dr. Newton recommends repeating labs, add a CK, magnesium, orthostatics and reevaluate. Patient is alert and oriented x3. Offers no complaints at this time. Denies taking any other medications since arrival to the emergency room. 12/21/19 10:44 12/21/19 16:25 Case management spoke with provider concerning patient's medical status. States she is known well to the patient does not to be appear to be herself. Will reevaluate the patient. 12/21/19 17:09 Patient is awake alert and oriented x3. She is ambulatory with a steady gait. Her vital signs have improved. Patient was given 200 mg of Lyrica and 6 mg of Zanaflex around 1230 this morning. In review of patient's previous medications it was noted that she has not filled the prescription for Lyrica since January 2019. Question patient about the last time that she took Lyrica and patient states it was an old prescription that she does not take it on a regular basis. Was unsure when the last time was that she had taken it. Patient was somnolent early in the day most likely related to the Lyrica and the Zanaflex. At this time she is alert and oriented able to answer questions appropriately. Pending mental health evaluation for discharge. 12/21/19 18:58 Patient remains alert and oriented x3. All vital signs are within normal limits. Counseled patient that she is cleared by mental health and ready for d ischarge home. Patient stated "I have not seen the lady from mental health and I want to see her before I am discharged". I did speak with Cheng Mcnulty [facility] Team to make her aware that patient would like to see her prior to discharge. 12/21/19 20:02 Remains alert and oriented x3. Patient is aware that she has been cleared both by mental health as well as from the medical aspect and she is stable to be discharged home. Patient will be given a prescription for BuSpar 5 mg twice daily and outpatient follow-up with her primary care physician and her mental health provider. Patient was given strict return to the emergency room guidelines. Return for any new or worsening symptoms. All questions were answered. Patient verbalized understanding and agrees with plan of care. Discharge - Discharge Clinical Impression: Suicidal ideation Acute gastritis Qualifiers: Gastritis type: unspecified gastritis Gastritis bleeding: without bleeding Qualified Code(s): K29.00 - Acute gastritis without bleeding Nausea and vomiting Qualifiers: Vomiting type: unspecified Vomiting Intractability: non-intractable Qualified Code(s): R11.2 - Nausea with vomiting, unspecified Chronic back pain Qualifiers: Back pain location: low back pain Back pain laterality: unspecified Sciatica presence: without sciatica Qualified Code(s): M54.5 - Low back pain Condition: Good Disposition: HOME, SELF-CARE Instructions: Antinausea Medication ([facility]), Gastritis ([facility]), Intravenous (IV) Fluids ([facility]), Vomiting ([facility]) Additional Instructions: Please take your medications as prescribed for the full duration. Please follow-up with your primary care doctor in 2 days for recheck of your symptoms. Also need to touch base with your chronic pain doctor about your low back pain that seems to be bothering you today. You have been evaluated for suicidal ideation by the behavioral health team have been deemed appropriate for discharge. You have declined assistance for voluntary placement at [facility]. You are encouraged to follow-up with outpatient mental health services and have been provided prescription for BuSpar 5 mg twice daily; please take as directed. You have been provided local resource list of area providers including mobile crisis contact information Prescriptions: Dicyclomine HCl [Bentyl 20 mg Tablet] 20 mg PO QIDP PRN 7 Days #28 tablet PRN Reason: Abdominal Cramping Buspirone HCl [Buspar 10 mg Tablet] 5 mg PO BID #28 tablet Sucralfate [Carafate 1 gm Tablet] 1 gm PO QID 7 Days #28 tablet Famotidine [Pepcid 20 mg Tablet] 20 mg PO BID 7 Days #14 tablet Referrals: [facility] [Outside] - Follow up as needed ROSE MARY CARPENTER PA-C [Primary Care Provider] - Follow up tomorrow
[2019-12-21 11:09] LABS: ALKALINE PHOSPHATASE 34 U/L (38-126); ANION GAP 8 (5-19); ASPARTATE AMINO TRANSFERASE 21 U/L (14-36); BILIRUBIN,DIRECT 0.3 mg/dL (0.0-0.4); BILIRUBIN,TOTAL 0.6 mg/dL (0.2-1.3); BLOOD UREA NITROGEN 13 mg/dL (7-20); CALCIUM 9.1 mg/dL (8.4-10.2); CARBON DIOXIDE 20 mmol/L (22-30); CHLORIDE 104 mmol/L (98-107); CREATINE KINASE 29 U/L (30-135); GLUCOSE 102 mg/dL (75-110); POTASSIUM 3.8 mmol/L (3.6-5.0); TOTAL PROTEIN 5.5 g/dL (6.3-8.2)
[2019-12-21 11:46] LABS: APPEARANCE,URINE SLIGHTLY-CLOUDY; BILIRUBIN,URINE NEGATIVE (NEGATIVE); COLOR,URINE YELLOW; GLUCOSE, URINE NEGATIVE (NEGATIVE); KETONES,URINE TRACE mg/dL (NEGATIVE); LEUKOCYTE ESTERASE,URINE NEGATIVE (NEGATIVE); NITRITE,URINE NEGATIVE (NEGATIVE); PROTEIN,URINE 30 mg/dL (NEGATIVE); URINE SPECIFIC GRAVITY 1.029
--- NOTE | 2019-12-21 17:11 | PSYCHOLOGICAL NOTE ---
Psych Note - Psych Note Date seen by psych provider: 12/21/19 Time seen by psych provider: 10:45 Psych Note: Reason for Consult: Suicidal ideation IVC Criteria per [place] GS 122C Dangerous to others Within the relevant past the individual No has inflicted or attempted to inflict or threatened to inflict serious bodily harm on another AND No that there is a reasonable probability that this conduct will be repeated. OR No has acted in such a way as to create a substantial risk of serious bodily harm to another AND No that there is a reasonable probability that this conduct will be repeated. OR No has engaged in extreme destruction of property AND No that there is a reasonable probability that this conduct will be repeated. Previous episodes of dangerousness to others, when applicable, may be considered when determining reasonable probability of future dangerous conduct. Clear, cogent, and convincing evidence that an individual has committed a homicide in the relevant past is prima facie evidence of dangerousness to others. Dangerous to self Within the relevant past the individual has done any of the following: acted in such a way as to show ALL of the following: No The individual would be unable without care, supervision, and the continued assistance of others not otherwise available, to exercise self- control, judgment, and discretion in the conduct of the individual's daily responsibilities and social relations or to satisfy the individual's need for nourishment, personal or medical care, group home, or self-protection and safety. AND No There is a reasonable probability of the individual suffering serious physical debilitation within the near future unless adequate treatment is given. A showing of behavior that is grossly irrational, of actions that the individual is unable to control, of behavior that is grossly inappropriate to the situation, or of other evidence of severely impaired insight and judgment shall create a prima facie inference that the individual is unable to care for himself or herself. OR No has attempted suicide or threatened suicide AND No that there is a reasonable probability of suicide unless adequate treatment is given Patient has no history of suicide attempt. Patient did not threaten suicide. She reports being in pain and taking more pain medications in an attempt to control the pain. She does admit to depression from the pain. OR No has mutilated himself or herself or attempted to mutilate himself or herself AND No that there is a reasonable probability of serious self-mutilation unless adequate treatment is given. NOTE: Previous episodes of dangerousness to self, when applicable, may be considered when determining reasonable probability of physical debilitation, suicide, or self-mutilation. Medication recommendations per [facility]'s contracted psychiatrist are as follows Start Buspar 5mg twice daily Impression/Plan:Patient is recommended for rescind of 24 hour petition for evaluation and is cleared from acute psychiatric services; paperwork is signed and placed in patient's chart. Dr. Echavarria was consulted on the care and management of this patient; attending physician is in agreement with recommendations and disposition.
[2019-12-21] MEDS ORDERED: ONDANSETRON 4 MG TAB.RAPDIS PO ONE (18:52)
[2019-12-21 21:46] VITALS: BP 140/85
== END 2019-12-21 20:55 | disposition home or self-care (01) ==
LOC: ER 17:15
DX: R11.2 Nausea with vomiting, unspecified (principal); R10.10 Upper abdominal pain, unspecified; I10 Essential (primary) hypertension; Z88.0 Allergy status to penicillin; Z88.2 Allergy status to sulfonamides; Z88.6 Allergy status to analgesic agent
CPT/HCPCS: 93005; 99285; 96361 ×2; 96374; 96375; 36415; 82553; 80307 ×4; 82550; 83690; 83735; 84443; 84703; 85025; 80053; 81001; 76705; 93010; J3490 ×2; S0119; J2405; J7030 ×2; S0028

== ENCOUNTER 2020-01-06 10:30 | Emergency (ER) | payer BC ==
[2020-01-06 10:39] VITALS: BP 133/87
== END 2020-01-06 11:56 | disposition left against medical advice (07) ==
LOC: ER 10:30
DX: Z53.21 Procedure and treatment not carried out due to patient leaving prior to being seen by health care provider (principal)

== ENCOUNTER 2020-01-06 17:07 | Emergency (ER) | payer BC ==
--- NOTE | 2020-01-06 19:04 | ER Document Report ---
ED Medical Screen (RME) - General Stated Complaint: BLOOD PRESSURE ISSUES Time Seen by Provider: 01/06/20 18:49 Primary Care Provider: ROSE MARY CARPENTER PA-C [Primary Care Provider] - Follow up as needed TRAVEL OUTSIDE OF THE [place] IN LAST 30 DAYS: No - HPI Notes: 01/06/20 19:02 34-year-old female to the emergency department with complaints of suicidal ideation with plan to overdose on pills. She states for the past 2 weeks that she has had debilitating depression. She states 2 weeks ago she came to this department and stated that she was feeling suicidal and wanted to take pills. She states that she was discharged home with BuSpar. She states that she has been trying to get an inpatient facility. She states that she has found a voluntary facility in [place] and she has been trying all day long to get into it. She states that she went to urgent care to try to get a rapid COVID test and her blood pressure was low. She states it was 69 systolic. Here in the emergency department is 103 systolic. An ambulance was called and she was brought here for further evaluation. She does admit to dizziness. Denies any HI, hallucinations. Have called and notified charge nurse of patient status and requested bed. I performed a brief medical screening exam on the patient determined that the patient needs further evaluation and management by main side provider. I have placed initial orders to help expedite care. - Related Data Allergies/Adverse Reactions: amoxicillin [Amoxicillin] Allergy (Intermediate, Verified 01/06/20 18:49) Hives Penicillins Allergy (Intermediate, Verified 01/06/20 18:49) Hives Sulfa (Sulfonamide Antibiotics) Allergy (Intermediate, Verified 01/06/20 18:49) Hives morphine Allergy (Mild, Verified 01/06/20 18:49) Hives ketorolac [From Toradol] Allergy (Verified 01/06/20 18:49) Past Medical History - Social History Family history: Reviewed & Not Pertinent - Past Medical History Cardiac Medical History: Reports: Hx Hypertension Denies: Hx Coronary Artery Disease, Hx Heart Attack Pulmonary Medical History: Reports: Hx Asthma - CHILD, Hx Pneumonia - 2007 Denies: Hx Bronchitis, Hx COPD Neurological Medical History: Reports: Hx Migraine. Denies: Hx Cerebrovascular Accident, Hx Seizures Renal/ Medical History: Denies: Hx Peritoneal Dialysis Musculoskeltal Medical History: Reports Hx Arthritis - Chronic back pain, Reports Hx Musculoskeletal Trauma - bilateral LE Psychiatric Medical History: Reports: Hx Anxiety Traumatic Medical History: Reports: Hx Spine Fracture - cervical and lumbar 2019 Past Surgical History: Reports: Hx Oral Surgery, Hx Orthopedic Surgery - RIGHT SHOULDER - Immunizations Immunizations up to date: Yes Hx Diphtheria, Pertussis, Tetanus Vaccination: Yes Physical Exam - Vital signs Vitals: Temp Pulse Resp BP Pulse Ox 98.3 F 98 16 103/69 100 01/06/20 17:20 01/06/20 17:20 01/06/20 17:20 01/06/20 17:20 01/06/20 17:20 Course - Vital Signs Vital signs: Temp Pulse Resp BP Pulse Ox 98.3 F 98 16 103/69 100 01/06/20 17:20 01/06/20 17:20 01/06/20 17:20 01/06/20 17:20 01/06/20 17:20 Doctor's Discharge - Discharge Referrals: ROSE MARY CARPENTER PA-C [Primary Care Provider] - Follow up as needed
[2020-01-06] MEDS ORDERED: NORMAL SALINE 1000 ML 1,000 ML IV ONE (19:34)
[2020-01-06 20:06] LABS: ABSOLUTE EOSINOPHILS # (AUTO) 0.1 10^3/uL (0.0-0.6); ABSOLUTE LYMPHOCYTES (AUTO) 1.4 10^3/uL (0.5-4.7); ABSOLUTE MONOCYTES (AUTO) 0.6 10^3/uL (0.1-1.4); BASOPHILS % (AUTO) 0.6 % (0-2); EOSINOPHILS % (AUTO) 1.3 % (0-6); HEMATOCRIT 33.5 % (36.0-47.0); HEMOGLOBIN 11.4 g/dL (12.0-15.5); LYMPHOCYTES % (AUTO) 19.3 % (13-45); MEAN CORPUSCULAR HEMOGLOBIN 26.6 pg (27.0-33.4); MEAN CORPUSCULAR HGB CONC 33.9 g/dL (32.0-36.0); MEAN CORPUSCULAR VOLUME 79 fl (80-97); MONOCYTES % (AUTO) 8.7 % (3-13); PLATELET COUNT 326 10^3/uL (150-450); RED BLOOD COUNT 4.26 10^6/uL (3.72-5.28); RED CELL DISTRIBUTION WIDTH 16.8 % (11.5-14.0); SEGMENTED NEUTROPHILS % (AUTO) 70.1 % (42-78); TOTAL CELLS COUNTED % (AUTO) 100 %; WHITE BLOOD COUNT 7.1 10^3/uL (4.0-10.5)
[2020-01-06 20:17] LABS: ALBUMIN 4.6 g/dL (3.5-5.0); ALKALINE PHOSPHATASE 56 U/L (38-126); ANION GAP 13 (5-19); ASPARTATE AMINO TRANSFERASE 32 U/L (14-36); BILIRUBIN,DIRECT 0.2 mg/dL (0.0-0.4); BILIRUBIN,TOTAL 0.6 mg/dL (0.2-1.3); BLOOD UREA NITROGEN 9 mg/dL (7-20); CALCIUM 9.8 mg/dL (8.4-10.2); CARBON DIOXIDE 22 mmol/L (22-30); CHLORIDE 102 mmol/L (98-107); GLUCOSE 108 mg/dL (75-110); POTASSIUM 3.9 mmol/L (3.6-5.0); TOTAL PROTEIN 7.1 g/dL (6.3-8.2)
[2020-01-06 20:21] LABS: ALCOHOL < 10 mg/dL (NONE DETECTED)
[2020-01-07 00:18] LABS: URINE AMPHETAMINES SCREEN NEGATIVE; URINE BARBITURATES SCREEN NEGATIVE; URINE BENZODIAZEPINES SCREEN NEGATIVE; URINE COCAINE SCREEN NEGATIVE; URINE MARIJUANA (THC) SCREEN NEGATIVE; URINE METHADONE SCREEN NEGATIVE; URINE PHENCYCLIDINE SCREEN NEGATIVE
--- NOTE | 2020-01-07 00:54 | ER Document Report ---
ED General - General Chief Complaint: Psych Problem Stated Complaint: BLOOD PRESSURE ISSUES Time Seen by Provider: 01/06/20 18:49 Primary Care Provider: ROSE MARY CARPENTER PA-C [Primary Care Provider] - Follow up as needed TRAVEL OUTSIDE OF THE [place] IN LAST 30 DAYS: No - HPI Notes: Patient is a 34-year-old female with a history of depression presents to emergency department for evaluation. She has depression with suicidal thoughts. She told them upfront that she plan to overdose, she tells me that she has more just passive suicidal ideation. She told them that she was started on BuSpar, she tells me she has been started on Remeron. She denies any active suicidal ideation at this time. No homicidal ideation. She states that her blood pressures have been low. She was seen at an urgent care recently and her blood pressure was extremely low. She used to have significant hypertension. She was on lisinopril which was discontinued. She continues to be on metoprolol. She states that she has intermittent dizziness. She denies any other recent medication changes with the exception of the Remeron for which she states she has been on for 2 weeks. She denies any pain of any sort. She denies any illicit drug use at this time. - Related Data Allergies/Adverse Reactions: amoxicillin [Amoxicillin] Allergy (Intermediate, Verified 01/06/20 18:49) Hives Penicillins Allergy (Intermediate, Verified 01/06/20 18:49) Hives Sulfa (Sulfonamide Antibiotics) Allergy (Intermediate, Verified 01/06/20 18:49) Hives morphine Allergy (Mild, Verified 01/06/20 18:49) Hives ketorolac [From Toradol] Allergy (Verified 01/06/20 18:49) Home Medications: metoprolol. lyrica. zanaflex. clonazepam. oxycodone. ambien. remeron Past Medical History - General Information source: Patient - Social History Smoking Status: Never Smoker Chew tobacco use (# tins/day): No Frequency of alcohol use: None Drug Abuse: None Family History: Reviewed & Not Pertinent Patient has homicidal ideation: No - Past Medical History Cardiac Medical History: Reports: Hx Hypertension Denies: Hx Coronary Artery Disease, Hx Heart Attack Pulmonary Medical History: Reports: Hx Asthma - CHILD, Hx Pneumonia - 2007 Denies: Hx Bronchitis, Hx COPD Neurological Medical History: Reports: Hx Migraine. Denies: Hx Cerebrovascular Accident, Hx Seizures Renal/ Medical History: Denies: Hx Peritoneal Dialysis Musculoskeletal Medical History: Reports Hx Arthritis - Chronic back pain, Reports Hx Musculoskeletal Trauma - bilateral LE, spinal cord injury Psychiatric Medical History: Reports: Hx Anxiety Traumatic Medical History: Reports: Hx Spine Fracture - cervical and lumbar 2019 Past Surgical History: Reports: Hx Oral Surgery, Hx Orthopedic Surgery - RIGHT SHOULDER - Immunizations Immunizations up to date: Yes Hx Diphtheria, Pertussis, Tetanus Vaccination: Yes Review of Systems - Review of Systems Constitutional: See HPI EENT: No symptoms reported Cardiovascular: No symptoms reported Respiratory: No symptoms reported Gastrointestinal: No symptoms reported Genitourinary: No symptoms reported Musculoskeletal: No symptoms reported Skin: No symptoms reported Neurological/Psychological: See HPI Physical Exam - Vital signs Vitals: Temp Pulse Resp BP Pulse Ox 98.3 F 98 16 103/69 100 01/06/20 17:20 01/06/20 17:20 01/06/20 17:20 01/06/20 17:20 01/06/20 17:20 - Notes Notes: This is a drowsy 34-year-old female who appears her stated age, no acute distress. She is a very flat affect, mildly depressed, but makes good eye contact. She does not appear to be reacting to internal stimuli. Vital signs reviewed, please refer to chart. Head is normocephalic, atraumatic. Pupils equal round, reactive to light. Neck is supple without meningismus. Heart is regular rate and rhythm. Lungs are clear to auscultation bilaterally. Abdomen is soft, nontender, normoactive bowel sounds throughout. Extremities without cyanosis, clubbing. Posterior calves are nontender. Peripheral pulses are equal. Skin is warm and dry. Patient is awake, alert, cooperative with examiner. Moves all 4 extremity spontaneously. Course - Re-evaluation Re-evalutation: 01/07/20 00:52 Patient presents to the emergency department for evaluation. Laboratory investigations were obtained. They are largely unremarkable. The patient's blood pressure has been borderline. We did order some IV fluids. She is already had her lisinopril stopped. She does not show any signs of significant infection or sepsis which would be contributing to any hypotension. She is c urrently stable, she is in fact rather sleepy which I am sure is also contributing to her mildly low blood pressure here. Will reassess after IV fluids. 01/07/20 00:56 I am notified the [facility] is currently holding a bed for this patient with her depression. Patient is given IV fluids. My hope will be that she will be medically cleared to go to [place] for further care. 01/07/20 04:04 Patient's blood pressure is actually better manually. I am not sure that the cuff is appropriate. Her laboratory investigations are entirely unremarkable. The patient now states she does not want to go to [place], she wants to go somewhere else. She has changed her mind quite frequently. Her story is changed freque ntly. She reports no Remeron, the new BuSpar, I am unsure as to what exactly is happening with this patient at this time. I do believe that it is appropriate to have the psychosocial team see her even just briefly tomorrow and figure out disposition. The patient is amenable to this. Otherwise, she can continue her regular medications as prescribed. She is currently medically cleared. - Vital Signs Vital signs: Temp Pulse Resp BP Pulse Ox 97.5 F 80 28 H 90/50 L 98 01/06/20 22:26 01/06/20 22:26 01/07/20 04:01 01/07/20 03:54 01/07/20 05:01 - Laboratory Result Diagrams: 01/06/20 19:41 01/06/20 19:41 Laboratory results interpreted by me: 01/06/20 01/06/20 19:41 19:41 Hgb 11.4 L Hct 33.5 L MCV 79 L MCH 26.6 L RDW 16.8 H Sodium 136.7 L ALT 67 H - EKG Interpretation by Me Additional EKG results interpreted by me: 01/07/20 04:05 Sinus mechanism with a rate of 71 bpm. Normal axis and intervals. No acute ST changes concerning for ischemia or infarction. Discharge - Discharge Clinical Impression: Suicidal thoughts Depression Qualifiers: Major depression recurrence: unspecified whether recurrent Active/Remission status: currently active Major depression episode severity: unspecified Hypotension Qualifiers: Hypotension type: unspecified hypotension type Qualified Code(s): I95.9 - Hypotension, unspecified Condition: Stable Disposition: OTHER Instructions: Depression ([facility]), Hypotension ([facility]) Additional Instructions: Please follow-up closely with your primary care provider this week in regards to your low blood pressure. Continue to not take your lisinopril. You can discuss decreasing your metoprolol with your primary care provider. Referrals: ROSE MARY CARPENTER PA-C [Primary Care Provider] - Follow up as needed
[2020-01-07] MEDS ORDERED: NORMAL SALINE 1000 ML 1,000 ML IV ONE (01:45)
[2020-01-07 02:14] LABS: APPEARANCE,URINE CLEAR; BILIRUBIN,URINE NEGATIVE (NEGATIVE); COLOR,URINE YELLOW; GLUCOSE, URINE NEGATIVE (NEGATIVE); KETONES,URINE NEGATIVE (NEGATIVE); LEUKOCYTE ESTERASE,URINE NEGATIVE (NEGATIVE); NITRITE,URINE NEGATIVE (NEGATIVE); PROTEIN,URINE NEGATIVE (NEGATIVE); URINE SPECIFIC GRAVITY 1.015; UROBILINOGEN,URINE NEGATIVE mg/dL (<2.0)
[2020-01-07] MEDS ORDERED: RINGERS SOLUTION,LACTATED 1,000 ML IV ONE (12:31)
--- NOTE | 2020-01-07 13:07 | ER Document Report ---
Doctor's Note Notes: 01/07/20 13:05 Rounded on patient. She states that she is feeling much better today. She denies any suicidal ideation or any plans. She states yesterday she stated that she was suicidal because she was frustrated with the circumstances. She was seen last night for SI after patient attempted to try to go to [facility]. She states that she presented to an urgent care to get a rapid coated test because [facility] requires that. She states when she went to the urgent care her blood pressure was low. She had soft blood pressures here overnight. She was given 2 L of fluid. Her lab work is very normal. She has had this in the past. She does take oxycodone daily. Denies any chest pain, shortness of breath, abdominal pain, headache, dizziness today. She states that she feels much better. The patient does not want to see behavioral health today but I did speak with Cheng Muñoz from [facility] about the treatment plan. While patient continues to have some softer blood pressures, I will give her another liter of fluids and have her eat a little bit more salt. Once her blood pressures are better the plan will be to discharge her. The patient will then go to urgent care to get a rapid COVID screen. If she is unsuccessful in getting a rapid COVID screen so she can fax that to [facility] and the patient will have a bed at [facility] available to her until 5 PM. I discussed this plan with Dr. Cesar, my ER attending and he agrees with the plan. 01/07/20 Patient's blood pressure has improved significantly. Now she is no longer orthostatic. I called [facility] to make sure that she can get in for a rapid COVID test. They states she can walk straight in. I also spoke with [facility] again and they have a plan to send a car to come get her as long as her cover test was negative at [facility]. We will discharge home. Patient states that she feels a little anxious and I will medicate her with some Benadryl. Patient denies any SI. I updated Dr. martinez my ER attending and he agrees with plan for discharge the patient can get to [facility].
[2020-01-07] MEDS ORDERED: DIPHENHYDRAMINE HCL 25 MG CAPSULE PO ONE (14:22)
[2020-01-07 14:36] VITALS: BP 100/48
--- NOTE | 2020-01-07 18:17 | EKG REPORT ---
SEVERITY:- NORMAL ECG - SINUS RHYTHM : Confirmed by: Shelly Lazar 07-Jan-2020 18:16:31
== END 2020-01-07 14:35 | disposition other institution (70) ==
LOC: ER 17:07
DX: F32.9 Major depressive disorder, single episode, unspecified (principal); R45.851 Suicidal ideations; I95.9 Hypotension, unspecified; I10 Essential (primary) hypertension; F41.9 Anxiety disorder, unspecified; R42 Dizziness and giddiness; R40.0 Somnolence; M54.9 Dorsalgia, unspecified; G89.29 Other chronic pain; Z79.899 Other long term (current) drug therapy; Z79.891 Long term (current) use of opiate analgesic; Z88.0 Allergy status to penicillin; Z88.2 Allergy status to sulfonamides; Z88.6 Allergy status to analgesic agent; Z88.5 Allergy status to narcotic agent; Z88.8 Allergy status to other drugs, medicaments and biological substances
CPT/HCPCS: 93005; 99284; 96360; 96361; 36415; 80307 ×2; 85025; 81025; 80053; 81001; 93010; J7030; J7120

== ENCOUNTER 2020-01-23 03:06 | Emergency (ER) | payer BC ==
--- NOTE | 2020-01-23 03:35 | ER Document Report ---
ED General - General TRAVEL OUTSIDE OF THE [place] IN LAST 30 DAYS: No - HPI Associated symptoms: None Exacerbated by: Denies Relieved by: Denies <NIK TOBAR IV - Last Filed: 01/23/20 05:38> <CHERY BARBOSA - Last Filed: 01/24/20 10:00> - General Chief Complaint: Possible Overdose Stated Complaint: POSSIBLE OVERDOSE Time Seen by Provider: 01/23/20 03:17 Primary Care Provider: ROSE MARY CARPENTER PA-C [Primary Care Provider] - Follow up as needed - HPI Context: This is a 34-year-old female with a past medical history of depression presenting via EMS for evaluation after intentionally taking a large amount of Ambien and tizanidine tablets. Patient reportedly took 15 ten mg Ambien tablets and the same number of 4 mg tizanidine. EMS contacted poison control at the scene and poison control recommended that the patient be monitored in the ED. A dministration of charcoal was not recommended. Patient will not elaborate on the exact stressors that have her feeling the need to harm her self. Patient denies history of Covid infection, loss of sense of taste or smell, known exposure to Covid positive persons or known exposure to persons under investigation for COVID-19. (NIK TOBAR IV) - Related Data Allergies/Adverse Reactions: amoxicillin [Amoxicillin] Allergy (Intermediate, Verified 01/23/20 03:24) Hives Penicillins Allergy (Intermediate, Verified 01/23/20 03:24) Hives Sulfa (Sulfonamide Antibiotics) Allergy (Intermediate, Verified 01/23/20 03:24) Hives morphine Allergy (Mild, Verified 01/23/20 03:24) Hives ketorolac [From Toradol] Allergy (Verified 01/23/20 03:24) Past Medical History - General Information source: Patient - Social History Smoking Status: Unknown if Ever Smoked Family History: Reviewed & Not Pertinent - Past Medical History Cardiac Medical History: Reports: Hx Hypertension Denies: Hx Coronary Artery Disease, Hx Heart Attack Pulmonary Medical History: Reports: Hx Asthma - CHILD, Hx Pneumonia - 2007 Denies: Hx Bronchitis, Hx COPD Neurological Medical History: Reports: Hx Migraine. Denies: Hx Cerebrovascular Accident, Hx Seizures Renal/ Medical History: Denies: Hx Peritoneal Dialysis Musculoskeletal Medical History: Reports Hx Arthritis - Chronic back pain, Reports Hx Musculoskeletal Trauma - bilateral LE, spinal cord injury Psychiatric Medical History: Reports: Hx Anxiety Traumatic Medical History: Reports: Hx Spine Fracture - cervical and lumbar 2019 Past Surgical History: Reports: Hx Oral Surgery, Hx Orthopedic Surgery - RIGHT SHOULDER - Immunizations Immunizations up to date: Yes Hx Diphtheria, Pertussis, Tetanus Vaccination: Yes <NIK TOBAR IV - Last Filed: 01/23/20 05:38> Review of Systems - Review of Systems Constitutional: No symptoms reported EENT: No symptoms reported Cardiovascular: No symptoms reported Respiratory: No symptoms reported Gastrointestinal: No symptoms reported Genitourinary: No symptoms reported Female Genitourinary: No symptoms reported Musculoskeletal: No symptoms reported Skin: No symptoms reported Hematologic/Lymphatic: No symptoms reported Neurological/Psychological: Dementia, Anxiety, Suicidal ideation -: Yes All other systems reviewed and negative <NIK TOBAR IV - Last Filed: 01/23/20 05:38> Physical Exam <NIK TOBAR IV - Last Filed: 01/23/20 05:38> - Vital signs Vitals: Temp Pulse Resp BP Pulse Ox 98.3 F 62 18 120/87 H 100 01/23/20 03:07 01/23/20 03:07 01/23/20 03:07 01/23/20 03:07 01/23/20 03:07 - Notes Notes: CONSTITUTIONAL [Vital signs reviewed, Patient appears comfortable, Alert and oriented X 3, Normal stature.] HEAD [Atraumatic, Normocephalic.] EYES [Eyes are normal to inspection, No discharge from eyes, Extraocular muscles intact, Sclera are normal, Conjunctiva are normal.] ENT Nose examination normal, Mouth normal to inspection.] NECK [Normal ROM, No jugular venous distention, No meningeal signs, no carotid bruit.] RESPIRATORY CHEST [Chest is nontender, Breath sounds normal, No respiratory distress.] CARDIOVASCULAR [RRR, No murmurs, Normal S1 S2, No rub, No gallop.] ABDOMEN [Abdomen is nontender, No pulsatile masses, No other masses, Bowel sounds normal, No distension, No peritoneal signs, No hernias.] BACK [There is no CVA Tenderness, There is no tenderness to palpation, Normal inspection.] UPPER EXTREMITY [Inspection normal, No cyanosis, No clubbing, No edema, 2+ radial pulses.] LOWER EXTREMITY [Inspection normal, No cyanosis, No clubbing, No edema, No calf tenderness, 2+ femoral pulses.] NEURO [No focal motor deficits, No focal sensory deficits, Speech normal.] SKIN [Skin is warm, Skin is dry, Skin is normal color.] PSYCHIATRIC Depressed affect. ] (NIK TOBAR IV) Course - Laboratory Result Diagrams: 01/23/20 02:55 01/23/20 02:55 <NIK TOBAR IV - Last Filed: 01/23/20 05:38> - Laboratory Result Diagrams: 01/23/20 02:55 01/23/20 02:55 <CHERY BARBOSA - Last Filed: 01/24/20 10:00> - Vital Signs Vital signs: Temp Pulse Resp BP Pulse Ox 98.1 F 74 16 116/74 100 01/24/20 08:47 01/24/20 08:47 01/24/20 08:47 01/24/20 08:47 01/24/20 08:47 - Laboratory Laboratory results interpreted by me: 01/23/20 01/23/20 02:55 02:55 Hgb 11.3 L Hct 34.0 L MCV 78 L MCH 25.9 L RDW 16.6 H Carbon Dioxide 19 L Glucose 115 H Salicylates < 1.0 L Acetaminophen < 10 L - EKG Interpretation by Me Additional EKG results interpreted by me: 01/23/20 05:38 EKG obtained on 01/23/2020 at 0321 hrs. was interpreted by this MD. Findings: Normal sinus rhythm, rate 67, normal axis, WA interval within normal limits, P waves proceed QRS complexes, QRS complex appears narrow, QTC is 439, there are no obvious patterns of ST segment elevation, depression or reciprocal changes seen to suggest acute myocardial ischemia or infarction. Impression: Normal sinus rhythm with nonspecific ST segments. (NIK TOBAR IV) Discharge <NIK TOBAR IV - Last Filed: 01/23/20 05:38> <CHERY BARBOSA - Last Filed: 01/24/20 10:00> - Discharge Clinical Impression: Involuntary commitment Intentional drug overdose Qualifiers: Encounter type: initial encounter Qualified Code(s): T50.902A - Poisoning by unspecified drugs, medicaments and biological substances, intentional self-harm, initial encounter Condition: Stable Disposition: OTHER Referrals: ROSE MARY CARPENTER PA-C [Primary Care Provider] - Follow up as needed
[2020-01-23 03:58] LABS: ABSOLUTE BASOPHILS # (AUTO) 0.1 10^3/uL (0.0-0.2); ABSOLUTE EOSINOPHILS # (AUTO) 0.1 10^3/uL (0.0-0.6); ABSOLUTE LYMPHOCYTES (AUTO) 1.5 10^3/uL (0.5-4.7); ABSOLUTE MONOCYTES (AUTO) 0.8 10^3/uL (0.1-1.4); ABSOLUTE NEUT (AUTO) 6.9 10^3/uL (1.7-8.2); BASOPHILS % (AUTO) 0.7 % (0-2); EOSINOPHILS % (AUTO) 0.7 % (0-6); HEMOGLOBIN 11.3 g/dL (12.0-15.5); LYMPHOCYTES % (AUTO) 16.2 % (13-45); MEAN CORPUSCULAR HEMOGLOBIN 25.9 pg (27.0-33.4); MEAN CORPUSCULAR HGB CONC 33.4 g/dL (32.0-36.0); MEAN CORPUSCULAR VOLUME 78 fl (80-97); MONOCYTES % (AUTO) 8.1 % (3-13); PLATELET COUNT 317 10^3/uL (150-450); RED BLOOD COUNT 4.38 10^6/uL (3.72-5.28); RED CELL DISTRIBUTION WIDTH 16.6 % (11.5-14.0); SEGMENTED NEUTROPHILS % (AUTO) 74.3 % (42-78); TOTAL CELLS COUNTED % (AUTO) 100 %; WHITE BLOOD COUNT 9.3 10^3/uL (4.0-10.5)
[2020-01-23 05:27] LABS: ALBUMIN 4.2 g/dL (3.5-5.0); ALKALINE PHOSPHATASE 48 U/L (38-126); ANION GAP 15 (5-19); ASPARTATE AMINO TRANSFERASE 20 U/L (14-36); BILIRUBIN,DIRECT 0.1 mg/dL (0.0-0.4); BILIRUBIN,TOTAL 0.4 mg/dL (0.2-1.3); BLOOD UREA NITROGEN 14 mg/dL (7-20); CALCIUM 9.5 mg/dL (8.4-10.2); CARBON DIOXIDE 19 mmol/L (22-30); CHLORIDE 105 mmol/L (98-107); GLUCOSE 115 mg/dL (75-110); POTASSIUM 3.9 mmol/L (3.6-5.0); TOTAL PROTEIN 6.9 g/dL (6.3-8.2)
[2020-01-23 05:34] LABS: ACETAMINOPHEN < 10 ug/mL (10-30); ALCOHOL < 10 mg/dL (NONE DETECTED); SALICYLATE < 1.0 mg/dL (2.0-20.0)
[2020-01-23 06:13] LABS: APPEARANCE,URINE CLEAR; BILIRUBIN,URINE NEGATIVE (NEGATIVE); COLOR,URINE YELLOW; GLUCOSE, URINE NEGATIVE (NEGATIVE); KETONES,URINE NEGATIVE (NEGATIVE); LEUKOCYTE ESTERASE,URINE NEGATIVE (NEGATIVE); NITRITE,URINE NEGATIVE (NEGATIVE); PROTEIN,URINE NEGATIVE (NEGATIVE); URINE SPECIFIC GRAVITY 1.026; UROBILINOGEN,URINE NEGATIVE mg/dL (<2.0)
[2020-01-23 06:31] LABS: URINE AMPHETAMINES SCREEN NEGATIVE; URINE BENZODIAZEPINES SCREEN NEGATIVE; URINE COCAINE SCREEN NEGATIVE; URINE MARIJUANA (THC) SCREEN NEGATIVE; URINE METHADONE SCREEN NEGATIVE; URINE PHENCYCLIDINE SCREEN NEGATIVE
[2020-01-23 06:33] LABS: URINE BARBITURATES SCREEN UNCONFIRMED POSITIVE
[2020-01-23] MEDS ORDERED: DIPHENHYDRAMINE HCL 50 MG CAPSULE PO ONE (08:01)
[2020-01-23] MEDS ORDERED: HALOPERIDOL LACTATE INJ 5 MG/1 ML VIAL IM ONE (08:25)
--- NOTE | 2020-01-23 08:40 | EKG REPORT ---
SEVERITY:- NORMAL ECG - SINUS RHYTHM : Confirmed by: David Rosales MD 23-Jan-2020 08:39:43
[2020-01-23] MEDS ORDERED: CLONAZEPAM 1 MG TABLET PO ONE (09:27)
--- NOTE | 2020-01-23 12:31 | PSYCHOLOGICAL NOTE ---
Psych Note - Psych Note Date seen by psych provider: 01/23/20 Time seen by psych provider: 11:30 Psych Note: Reason for Consult:Intentional Overdose Consent Permissions:None provided Patient arrived to [facility] ED via EMS after intentional overdose. Patient overdosed on fifteen Ambien and fifteen Tizanidine. Patient has been struggling with her depression connected to her pain and quality of life. She feels her family is not supportive and her daughter has turned to her parents for support as they have been caring for the patient's daughter due to her pain. Patient has recently acknowledged her dependency and misuse of her pain medications which has added to her depression. She disclosed she voluntarily went to [facility] but feels they did not help her at all and with her support system not there she felt alone. She reports her sister is the only other person in the family she gets along with and her sister is currently in the hospital recovering from hernia surgery. She reports she has not had any contact from her sister (patient became tearful). Patient disclosed the 2 suicide notes were to her daughter and sister (patient tearful). She reports she has moved out of her parents' home because of conflict and her daughter stayed with her parents (this is one of her triggers, patient's mother taking over "mother" role of patient's daughter). Patient is alert and orientated to person, place, time and circumstance. Patient's mood is dysphoric with flat affect. Clinician notes patient does become tearful when talking about her sister and writing suicide notes. Patient presented after intentional overdose. Patient denies homicidal ideation. Delusions are absent behaviors congruent with an intact reality based presentation i.e. organized in the her thought process. Eye contact is fair. Conversational speech is within normal rate, tone and prosody. Intellectual abilities appear to be within the average range. Attention and concentration is fair. Insight, judgment, impulse control is poor. Clinical Presentation: intentional overdose; with suicide notes dysphoric mood with flat affect IVC Criteria per [place] GS 122C Dangerous to others Within the relevant past the individual No has inflicted or attempted to inflict or threatened to inflict serious bodily harm on another AND No that there is a reasonable probability that this conduct will be repeated. OR No has acted in such a way as to create a substantial risk of serious bodily harm to another AND No that there is a reasonable probability that this conduct will be repeated. OR No has engaged in extreme destruction of property AND NO that there is a reasonable probability that this conduct will be repeated. Previous episodes of dangerousness to others, when applicable, may be considered when determining reasonable probability of future dangerous conduct. Clear, cogent, and convincing evidence that an individual has committed a homicide in the relevant past is prima facie evidence of dangerousness to others. Dangerous to self Within the relevant past the individual has done any of the following: acted in such a way as to show ALL of the following: No The individual would be unable without care, supervision, and the continued assistance of others not otherwise available, to exercise self- control, judgment, and discretion in the conduct of the individual's daily responsibilities and social relations or to satisfy the individual's need for nourishment, personal or medical care, retirement, or self-protection and safety. AND No There is a reasonable probability of the individual suffering serious physical debilitation within the near future unless adequate treatment is given. A showing of behavior that is grossly irrational, of actions that the individual is unable to control, of behavior that is grossly inappropriate to the situation, or of other evidence of severely impaired insight and judgment shall create a prima facie inference that the individual is unable to care for himself or herself. OR YES has attempted suicide or threatened suicide AND YES that there is a reasonable probability of suicide unless adequate treatment is given Patient presents after intentional overdose. Patient has not followed recommendations to follow-up with outpatient mental health services for medication management or therapeutic services. Patient wrote 2 suicide notes 1 to her daughter in 1 to her sister. Patient continues to be dysphoric. OR No has mutilated himself or herself or attempted to mutilate himself or herself AND No that there is a reasonable probability of serious self-mutilation unless adequate treatment is given. NOTE: Previous episodes of dangerousness to self, when applicable, may be considered when determining reasonable probability of physical debilitation, suicide, or self-mutilation. Impression\\plan: Patient is recommended for IVC: Paperwork is signed, faxed to [employer] and placed in patient's chart. Patient presents after intentional overdose. 2 suicide notes were present on scene. Patient reports one note was to her daughter and the other note was to her sister. Patient identifies breakdown in support system, increased depression and connection with pain, decrease in quality of life and recent acknowledgment of medication dependency and misuse. Patient has not followed through with recommendations to obtain medication management and therapeutic services identified during previous visits. There is a high probability the patient will continue to be noncompliant and engage in continued self-harm behavior. Dr. Echavarria was consulted to care management of this patient; attending physicians in agreement with recommendations and disposition. Case management: Patient's information faxed to [facility] for placement consideration Patient was accepted to [facility] at [address] Farah for tomorrow morning 01/24/2020. Transportation has been requested for first thing in the morning.
[2020-01-23] MEDS ORDERED: TRAMADOL HCL 50 MG TABLET PO ONE (14:16)
[2020-01-23] MEDS ORDERED: OXYCODONE HCL IR 5 MG TABLET PO ONE (18:55)
[2020-01-23] MEDS ORDERED: ONDANSETRON 4 MG TAB.RAPDIS PO ONE (18:56)
[2020-01-23] MEDS ORDERED: METOPROLOL SUCCINATE 25 MG TAB.SR.24H PO ONE (21:40)
[2020-01-23] MEDS ORDERED: GABAPENTIN 400 MG CAPSULE PO ONE (21:40)
[2020-01-23] MEDS ORDERED: TIZANIDINE HCL 4 MG TABLET PO ONE (21:41)
[2020-01-24 08:47] VITALS: BP 116/74
[2020-01-24] MEDS ORDERED: ONDANSETRON 4 MG TAB.RAPDIS PO ONE (08:51)
--- NOTE | 2020-01-24 08:53 | ER Document Report ---
Doctor's Note Notes: 01/24/20 08:51 PHYSICAL EXAMINATION: GENERAL: Well-appearing and in no acute distress. HEAD: Atraumatic, normocephalic. EYES: sclera anicteric, conjunctiva are normal. ENT: nares patent. Moist mucous membranes. NECK: Normal range of motion, supple LUNGS: CTAB and equal. No wheezes rales or rhonchi. HEART: Regular rate and rhythm without murmurs ABDOMEN: Soft, nontender, normal bowel sounds, no guarding. EXTREMITIES: Normal range of motion, no pitting edema. No cyanosis. BACK: Left lumbar paraspinal tenderness, no CVA tenderness NEUROLOGICAL: Cranial nerves grossly intact. Normal speech. PSYCH: Normal mood, normal affect. SKIN: Warm, Dry, normal turgor, no rashes or lesions noted Patient has been accepted to [facility] and transport is on the way. Patient does complain of nausea at this time. Patient is otherwise medically clear for transfer at this time.
== END 2020-01-24 09:23 | disposition other institution (70) ==
LOC: ER 03:06
DX: Z04.6 Encounter for general psychiatric examination, requested by authority (principal); T42.6X2A Poisoning by other antiepileptic and sedative-hypnotic drugs, intentional self-harm, initial encounter; T42.8X2A Poisoning by antiparkinsonism drugs and other central muscle-tone depressants, intentional self-harm, initial encounter; Y92.59 Other trade areas as the place of occurrence of the external cause; F03.90 Unspecified dementia, unspecified severity, without behavioral disturbance, psychotic disturbance, mood disturbance, and anxiety; F32.9 Major depressive disorder, single episode, unspecified; R52 Pain, unspecified; F55.8 Abuse of other non-psychoactive substances; F41.9 Anxiety disorder, unspecified; R11.0 Nausea; I10 Essential (primary) hypertension; Z63.8 Other specified problems related to primary support group; Z88.0 Allergy status to penicillin; Z88.2 Allergy status to sulfonamides; Z88.6 Allergy status to analgesic agent; Z88.5 Allergy status to narcotic agent
CPT/HCPCS: 93005; 99285; 36415; 80307 ×4; 84703; 85025; 80053; 81001; 93010; J3490; S0119 ×2

== ENCOUNTER 2020-02-15 15:13 | Emergency (ER) | payer BC ==
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
[2020-02-15 18:46] LABS: APPEARANCE,URINE SLIGHTLY-CLOUDY; BILIRUBIN,URINE NEGATIVE (NEGATIVE); COLOR,URINE YELLOW; GLUCOSE, URINE NEGATIVE (NEGATIVE); KETONES,URINE NEGATIVE (NEGATIVE); LEUKOCYTE ESTERASE,URINE NEGATIVE (NEGATIVE); NITRITE,URINE NEGATIVE (NEGATIVE); PROTEIN,URINE NEGATIVE (NEGATIVE); URINE SPECIFIC GRAVITY 1.012; UROBILINOGEN,URINE NEGATIVE mg/dL (<2.0)
[2020-02-15 19:03] LABS: URINE AMPHETAMINES SCREEN NEGATIVE; URINE BARBITURATES SCREEN NEGATIVE; URINE BENZODIAZEPINES SCREEN NEGATIVE; URINE COCAINE SCREEN NEGATIVE; URINE MARIJUANA (THC) SCREEN NEGATIVE; URINE METHADONE SCREEN NEGATIVE; URINE PHENCYCLIDINE SCREEN NEGATIVE
[2020-02-15 19:21] LABS: ABSOLUTE EOSINOPHILS # (AUTO) 0.1 10^3/uL (0.0-0.6); ABSOLUTE LYMPHOCYTES (AUTO) 1.5 10^3/uL (0.5-4.7); ABSOLUTE MONOCYTES (AUTO) 0.5 10^3/uL (0.1-1.4); ABSOLUTE NEUT (AUTO) 4.4 10^3/uL (1.7-8.2); BASOPHILS % (AUTO) 0.8 % (0-2); EOSINOPHILS % (AUTO) 0.9 % (0-6); HEMATOCRIT 35.2 % (36.0-47.0); HEMOGLOBIN 11.5 g/dL (12.0-15.5); LYMPHOCYTES % (AUTO) 23.3 % (13-45); MEAN CORPUSCULAR HEMOGLOBIN 24.7 pg (27.0-33.4); MEAN CORPUSCULAR HGB CONC 32.7 g/dL (32.0-36.0); MEAN CORPUSCULAR VOLUME 76 fl (80-97); RED BLOOD COUNT 4.65 10^6/uL (3.72-5.28); RED CELL DISTRIBUTION WIDTH 16.5 % (11.5-14.0); TOTAL CELLS COUNTED % (AUTO) 100 %; WHITE BLOOD COUNT 6.5 10^3/uL (4.0-10.5)
[2020-02-15 19:46] LABS: ALKALINE PHOSPHATASE 58 U/L (38-126); ANION GAP 14 (5-19); ASPARTATE AMINO TRANSFERASE 27 U/L (14-36); BILIRUBIN,DIRECT 0.1 mg/dL (0.0-0.4); BILIRUBIN,TOTAL 0.3 mg/dL (0.2-1.3); BLOOD UREA NITROGEN 8 mg/dL (7-20); CALCIUM 9.9 mg/dL (8.4-10.2); CARBON DIOXIDE 24 mmol/L (22-30); CHLORIDE 104 mmol/L (98-107); GLUCOSE 107 mg/dL (75-110); POTASSIUM 3.5 mmol/L (3.6-5.0)
[2020-02-15 19:48] LABS: PLATELET COUNT 272 10^3/uL (150-450)
[2020-02-15 20:01] LABS: ACETAMINOPHEN < 10 ug/mL (10-30); ALCOHOL < 10 mg/dL (NONE DETECTED); SALICYLATE < 1.0 mg/dL (2.0-20.0)
--- NOTE | 2020-02-15 21:04 | EKG REPORT ---
SEVERITY:- BORDERLINE ECG - SINUS RHYTHM BORDERLINE T ABNORMALITIES, ANTERIOR LEADS : Confirmed by: David Rosales MD 15-Feb-2020 21:04:04
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
[2020-02-15] MEDS ORDERED: OXYCODONE HCL SR 10 MG TABLET PO ONE (22:53)
[2020-02-16] MEDS ORDERED: QUETIAPINE FUMARATE 100 MG TABLET PO ONE (01:34)
[2020-02-16] MEDS ORDERED: GABAPENTIN 300 MG CAPSULE PO ONE (01:34)
[2020-02-16] MEDS ORDERED: TIZANIDINE HCL 4 MG TABLET PO ONE (01:35)
[2020-02-16 10:51] VITALS: BP 114/62
--- NOTE | 2020-02-16 10:58 | PSYCHOLOGICAL NOTE ---
Psych Note - Psych Note Date seen by psych provider: 02/15/20 Time seen by psych provider: 18:30 - 1845 Psych Note: Reason for Consult:Suicidal ideation Consent Permissions: None provided Patient arrived to [facility] ED via POV reporting suicidal ideation with a plan to ove rdose. She disclosed she did not take any pills because a friend called for a welfare check and law enforcement showed up. Patient states [facility] did not help her with therapy and follow up, they just discharged. Clinician provided psychoeducation to patient on understanding inpatient psychiatric treatment is for medication stabilization not for one-on-one therapy. Patient reports she understands However feels very unsafe. Patient is alert and orientated to person, place, time and circumstance. Mood is dysphoric with blunted affect. Patient reports suicidal ideation with plan to overdose. Patient denies homicidal ideation. Delusions are absent behaviors congruent with an intact reality based presentation i.e. organized and linear thought process. Eye contact is well maintained. Conversational speech is monotone. Intellectual abilities appear to be within the average range. Attention and concentration are fair. Insight, judgment, impulse control are very poor for this patient. Clinical Presentation: Suicidal ideation with plan to overdose Substance abuse with prescription medication IVC Criteria per [place] GS 122C Dangerous to others Within the relevant past the individual No has inflicted or attempted to inflict or threatened to inflict serious bodily harm on another AND No that there is a reasonable probability that this conduct will be repeated as there is an absence of supervision or structure to prevent. OR No has acted in such a way as to create a substantial risk of serious bodily harm to another AND No that there is a reasonable probability that this conduct will be repeated as there is an absence of supervision or structure to prevent. OR No has engaged in extreme destruction of property AND NO that there is a reasonable probability that this conduct will be repeated as there is an absence of supervision or structure to prevent. Previous episodes of dangerousness to others, when applicable, may be considered when determining reasonable probability of future dangerous conduct. Clear, cogent, and convincing evidence that an individual has committed a homicide in the relevant past is prima facie evidence of dangerousness to others. Dangerous to self Within the relevant past the individual has done any of the following: acted in such a way as to show ALL of the following: No The individual would be unable without care, supervision, and the continued assistance of others not otherwise available, to exercise self- control, judgment, and discretion in the conduct of the individual's daily responsibilities and social relations or to satisfy the individual's need for nourishment, personal or medical care, half-way, or self-protection and safety. AND No There is a reasonable probability of the individual suffering serious physical debilitation within the near future unless adequate treatment is given. A showing of behavior that is grossly irrational, of actions that the individual is unable to control, of behavior that is grossly inappropriate to the situation, or of other evidence of severely impaired insight and judgment shall create a prima facie inference that the individual is unable to care for himself or herself. OR YES has attempted suicide or threatened suicide AND YES that there is a reasonable probability of suicide unless adequate treatment is given as there is an absence of supervision or structure to prevent suicide of patient who has made an attempt, serious gesture or threat. Patient presents reporting suicidal ideation with a plan to overdose. Patient has demonstrated a significant history of impulsivity in addition to polysubstance abuse of her prescription medication. Patient recently overdosed on her prescription medication in attempt to kill herself last month. OR No has mutilated himself or herself or attempted to mutilate himself or herself AND No that there is a reasonable probability of serious self-mutilation unless adequate treatment is given as there is an absence of supervision or structure to prevent. NOTE: Previous episodes of dangerousness to self, when applicable, may be considered when determining reasonable probability of physical debilitation, suicide, or self-mutilation. Impression\plan: Patient is recommended for IVC; paperwork is signed, faxed to [employer] and placed in patient's chart. At this time patient is reporting suicidal ideation with a plan to overdose. Patient historically has extremely poor impulse control and has recently attempted to kill herself by overdose last month. Patient has a history of prescription medication misuse in connection to her identified chronic pain. Dr. Echavarria was consulted to care management of this patient; attending physicians in agreement with recommendations and disposition. Case management: 1801 Clinician contacted [facility] after noting possible need for IVC placement. [facility] confirm they have a bed available and will hold the bed while clinician is determining need. 1851 Clinician faxed to [employer] IVC paperwork 1915 Clinician contacted [facility] to confirm the need of bed once patient is medically cleared.
--- NOTE | 2020-02-16 11:02 | ER Document Report ---
Doctor's Note Notes: 02/16/20 11:00 S: Assumed care of the patient from nighttime provider. Patient came in overnight with thoughts of suicidal ideation and a plan to overdose. This patient is well-known to this department. She has in the past attempted to overdose. She has been in and out of psychiatric services over the past several years. Rounding on her this morning she states that she continues to feel suicidal. She states that the last week she was she felt like she was not ready to go home but "they pushed me out the door and told me to try". She states that that did not work and she continues to feel suicidal. She denies any other complaints this morning. Our behavioral team has set her up for transfer to [facility] on IVC. O: PHYSICAL EXAMINATION: GENERAL: Well-appearing, well-nourished and in no acute distress. HEAD: Atraumatic, normocephalic. LUNGS: Breath sounds clear to auscultation bilaterally and equal. No wheezes rales or rhonchi. HEART: Regular rate and rhythm without murmurs ABDOMEN: Soft, nontender, normoactive bowel sounds. No guarding, no rebound. No masses appreciated. NEUROLOGICAL: No focal neurological deficits. Moves all extremities spontaneously and on command. PSYCH: Flat affect, expresses suicidal ideation with plan for overdose. No HI or hallucinations SKIN: Warm, Dry, normal turgor, no rashes or lesions noted. A/P: Plan will be to have patient go for inpatient admission to [facility] on IVC for further evaluation and management of her suicidal ideation. There is a bed available for her now and has been called to transport her. She is stable for transfer.
== END 2020-02-16 11:00 | disposition other institution (70) ==
LOC: ER 15:13
DX: F32.9 Major depressive disorder, single episode, unspecified (principal); R45.851 Suicidal ideations; F17.200 Nicotine dependence, unspecified, uncomplicated; I10 Essential (primary) hypertension; Z88.0 Allergy status to penicillin
CPT/HCPCS: 93005; 99285; 36415; 80307 ×4; 85025; 81025; 80053; 81001; 93010; J3490

== ENCOUNTER 2020-02-18 16:26 | Emergency (ER) | payer BC ==
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
--- NOTE | 2020-02-18 19:08 | EKG REPORT ---
SEVERITY:- NORMAL ECG - SINUS RHYTHM : Confirmed by: David Rosales MD 18-Feb-2020 19:07:10
[2020-02-18 19:43] LABS: APPEARANCE,URINE SLIGHTLY-CLOUDY; BILIRUBIN,URINE NEGATIVE (NEGATIVE); COLOR,URINE YELLOW; GLUCOSE, URINE NEGATIVE (NEGATIVE); KETONES,URINE NEGATIVE (NEGATIVE); LEUKOCYTE ESTERASE,URINE TRACE (NEGATIVE); NITRITE,URINE NEGATIVE (NEGATIVE); PROTEIN,URINE NEGATIVE (NEGATIVE); URINE SPECIFIC GRAVITY 1.024; UROBILINOGEN,URINE NEGATIVE mg/dL (<2.0)
[2020-02-18 19:58] LABS: URINE AMPHETAMINES SCREEN NEGATIVE; URINE BARBITURATES SCREEN NEGATIVE; URINE COCAINE SCREEN NEGATIVE; URINE MARIJUANA (THC) SCREEN NEGATIVE; URINE METHADONE SCREEN NEGATIVE; URINE PHENCYCLIDINE SCREEN NEGATIVE
[2020-02-18 20:01] LABS: URINE BENZODIAZEPINES SCREEN UNCONFIRMED POSITIVE
[2020-02-18 21:05] LABS: ABSOLUTE BASOPHILS # (AUTO) 0.1 10^3/uL (0.0-0.2); ABSOLUTE EOSINOPHILS # (AUTO) 0.1 10^3/uL (0.0-0.6); ABSOLUTE LYMPHOCYTES (AUTO) 1.5 10^3/uL (0.5-4.7); ABSOLUTE MONOCYTES (AUTO) 0.5 10^3/uL (0.1-1.4); BASOPHILS % (AUTO) 0.8 % (0-2); HEMATOCRIT 31.9 % (36.0-47.0); HEMOGLOBIN 10.7 g/dL (12.0-15.5); LYMPHOCYTES % (AUTO) 20.6 % (13-45); MEAN CORPUSCULAR HEMOGLOBIN 24.9 pg (27.0-33.4); MEAN CORPUSCULAR HGB CONC 33.6 g/dL (32.0-36.0); MEAN CORPUSCULAR VOLUME 74 fl (80-97); MONOCYTES % (AUTO) 7.3 % (3-13); PLATELET COUNT 338 10^3/uL (150-450); RED BLOOD COUNT 4.31 10^6/uL (3.72-5.28); RED CELL DISTRIBUTION WIDTH 16.5 % (11.5-14.0); SEGMENTED NEUTROPHILS % (AUTO) 70.3 % (42-78); TOTAL CELLS COUNTED % (AUTO) 100 %; WHITE BLOOD COUNT 7.1 10^3/uL (4.0-10.5)
--- NOTE | 2020-02-18 21:09 | ER Document Report ---
ED General <AYESHA ELIZABETH - Last Filed: 02/18/20 22:25> - General Mode of Arrival: Ambulatory TRAVEL OUTSIDE OF THE [place] IN LAST 30 DAYS: No - HPI Pain Level: Denies Associated symptoms: Other - See HPI Relieved by: Other - See HPI Similar symptoms previously: Yes Recently seen / treated by doctor: Yes <NIK TOBAR IV - Last Filed: 02/19/20 07:26> - General Chief Complaint: Suicidal Ideation Stated Complaint: PSYCH EVAL/CLEARANCE Time Seen by Provider: 02/18/20 18:39 Primary Care Provider: ROSE MARY CARPENTER PA-C [Primary Care Provider] - Follow up as needed - HPI Context: This is a 34-year-old female presenting to the emergency department complaining of suicidal ideation. This MD has discussed the patient with Cheng with behavioral health services. Apparently the patient has a extensive history of claiming that she has suicidal ideation and also has an extensive history of being admitted to facilities for inpatient psychiatric management. The patient is reportedly very difficult in terms of being demanding and stating that there are certain facilities that she is willing to be sent to and there are other facilities she is not willing to be sent to. Patient most recently reportedly overdosed on Ambien on 01/22/2020 and was placed in a facility and was discharged on 02/14/2020. Patient states that she is having recurrent thoughts of suicide and states that she has a plan to take a whole bottle of clonazepam. Patient states she was thinking about doing this earlier tonight but decided to come to the emergency department instead. Patient also states that she called the facility that she was discharged from on 02/14/2020 and she was instructed that if she went to the emergency department got medical clearance they would keep a bed for her and she could be transported back to the facility known as [facility]. Currently Cheng is interviewing the patient and states she would speak to Dr. Echavarria in terms of whether or not the patient is going to meet criteria for commitment. Patient states that stress exacerbates her thoughts of suicide and nothing alleviates her thoughts of suicide. Patient denies history of COVID-19 infection, known exposure to Covid positive persons or persons under investigation for COVID-19. Patient states she smokes cigarettes, does not drink alcohol and does not use illicit drugs. Patient denies fever, chills, chest pain, shortness of breath, nausea, vomiting, abdominal pain, headache. Patient states she does feel depressed and anxious at times. Patient denies homicidal ideation. (NIK TOBAR IV) - Related Data Allergies/Adverse Reactions: amoxicillin [Amoxicillin] Allergy (Intermediate, Verified 02/15/20 17:46) Hives Penicillins Allergy (Intermediate, Verified 02/15/20 17:46) Hives Sulfa (Sulfonamide Antibiotics) Allergy (Intermediate, Verified 02/15/20 17:46) Hives morphine Allergy (Mild, Verified 02/15/20 17:46) Hives ketorolac [From Toradol] Allergy (Verified 02/15/20 17:46) Past Medical History - General Information source: Patient - Social History Smoking Status: Current Every Day Smoker Frequency of alcohol use: None Drug Abuse: None Family History: Reviewed & Not Pertinent Patient has suicidal ideation: Yes Patient has homicidal ideation: No - Past Medical History Cardiac Medical History: Reports: Hx Hypertension Denies: Hx Coronary Artery Disease, Hx Heart Attack Pulmonary Medical History: Reports: Hx Asthma - CHILD, Hx Pneumonia - 2007 Denies: Hx Bronchitis, Hx COPD Neurological Medical History: Reports: Hx Migraine. Denies: Hx Cerebrovascular Accident, Hx Seizures Renal/ Medical History: Denies: Hx Peritoneal Dialysis Musculoskeletal Medical History: Reports Hx Arthritis - Chronic back pain, Reports Hx Musculoskeletal Trauma - bilateral LE, spinal cord injury Psychiatric Medical History: Reports: Hx Anxiety, Hx Depression Traumatic Medical History: Reports: Hx Spine Fracture - cervical and lumbar 2019 Past Surgical History: Reports: Hx Oral Surgery, Hx Orthopedic Surgery - RIGHT SHOULDER - Immunizations Immunizations up to date: Yes Hx Diphtheria, Pertussis, Tetanus Vaccination: Yes <NIK TOBAR IV - Last Filed: 02/19/20 07:26> Review of Systems <NIK TOBAR IV - Last Filed: 02/19/20 07:26> - Review of Systems Notes: Review of systems as below unless otherwise stated in HPI. CONSTITUTIONAL [No] fever, [No] chills. EYES [No] eye pain. ENT [No] URI symptoms, [No] sore throat, [No] ear pain. CARDIOVASCULAR [No] chest pain, [No] palpitations, [No] edema. RESPIRATORY [No] Cough, [No] SOB, [No] wheezing. GASTROINTESTINAL [No] abdominal pain, [No] nausea, [No] Diarrhea, [No] Vomiting, [No] constipation, [No] melena, [No] rectal bleeding. GENITOURINARY [No] dysuria, [No] urinary frequency, [No] hematuria, [No] urinary urgency, [No] vaginal discharge, [No] vaginal bleeding. MUSCULOSKELETAL [No] Back pain. SKIN [No] Rash. NEUROLOGIC [No] Headache, [No] recent seizures, [No] paralysis,[No] parathesias. ENDOCRINE [No] polyuria. HEMO/LYMPATIC [No] easy brusing PSYCHIATRIC [+] depression, + anxiety, pt states she is suicidal (NIK TOBAR IV) Physical Exam <NIK TOBAR IV - Last Filed: 02/19/20 07:26> - Vital signs Vitals: Temp Pulse Resp BP Pulse Ox 98.4 F 90 20 118/63 100 02/18/20 16:53 02/18/20 16:53 02/18/20 16:53 02/18/20 16:53 02/18/20 16:53 - Notes Notes: CONSTITUTIONAL [Vital signs reviewed, Patient appears comfortable, Alert and oriented X 3, Normal stature.] HEAD [Atraumatic, Normocephalic.] EYES [Eyes are normal to inspection, No discharge from eyes, Extraocular muscles intact, Sclera are normal, Conjunctiva are normal.] ENT [External ears normal to inspection, Nose examination normal, Mouth normal to in spection.] NECK [Normal ROM, No jugular venous distention, No meningeal signs, ] RESPIRATORY CHEST [Chest is nontender, Breath sounds normal, No respiratory distress.] CARDIOVASCULAR [RRR, No murmurs, Normal S1 S2, No rub, No gallop.] ABDOMEN [Abdomen is nontender, No pulsatile masses, No other masses, Bowel sounds normal, No distension, No peritoneal signs, No hernias.] BACK [There is no CVA Tenderness, There is no tenderness to palpation, Normal inspection.] UPPER EXTREMITY [Inspection normal, No cyanosis, No clubbing, No edema, LOWER EXTREMITY [Inspection normal, No cyanosis, No clubbing, No edema, No calf tenderness, NEURO [No focal motor deficits, No focal sensory deficits, Speech normal.] SKIN [Skin is warm, Skin is dry, Skin is normal color.] LYMPHATIC [No adenopathy in neck.] PSYCHIATRIC [Normal affect. Patient is eating a meal tray and watching TV] (NIK TOBAR IV) Course - Laboratory Result Diagrams: 02/18/20 20:12 02/18/20 20:12 <AYESHA ELIZABETH - Last Filed: 02/18/20 22:25> - Laboratory Result Diagrams: 02/18/20 20:12 02/18/20 20:12 <NIK TOBAR IV - Last Filed: 02/19/20 07:26> - Vital Signs Vital signs: Temp Pulse Resp BP Pulse Ox 98.1 F 82 16 89/70 L 100 02/19/20 05:51 02/19/20 05:51 02/19/20 05:51 02/19/20 05:51 02/19/20 05:51 - Laboratory Laboratory results interpreted by me: 02/18/20 02/18/20 02/18/20 18:51 20:12 20:12 Hgb 10.7 L Hct 31.9 L MCV 74 L MCH 24.9 L RDW 16.5 H Ur Leukocyte Esterase TRACE H Salicylates < 1.0 L Acetaminophen < 10 L - EKG Interpretation by Me Additional EKG results interpreted by me: 02/18/20 21:28 EKG obtained on 02/18/2020 at 1857 hrs. was interpreted by this MD. Findings: Normal sinus rhythm, rate 81, normal axis, P waves preceding QRS complexes, QRS complexes appear narrow, UT intervals appear to be within normal limits, QTC is 441, there are no obvious patterns of ST segment elevation, depression or reciprocal changes seen to suggest acute myocardial ischemia or infarction. There is no prior EKG immediately available for comparison. Impression: Normal sinus rhythm with nonspecific ST segments. (NIK TOBAR IV) Discharge <AYESHA ELIZABETH - Last Filed: 02/18/20 22:25> <NIK TOBAR IV - Last Filed: 02/19/20 07:26> - Discharge Clinical Impression: Suicidal ideation Condition: Stable Disposition: OTHER Additional Instructions: You have been evaluated both medical and behavioral health teams and been deemed appropriate for discharge. You have requested assistance in placement for a voluntary bed at [facility] in [place]. Unfortunately, at this time [facility] is unable to assist with voluntary inpatient psychiatric placement as this is an acute medical facility. Therapeutically you are recommended to follow-up with outpatient mental health services for therapy to build your interpretation of your environment, understand your triggers, and build your positive coping skills. Inpatient psychiatric treatment is used for medication stabilization which has been achieved after 2 inpatient psychiatric treatment this month. DEPRESSION: Your evaluation reveals that you have mental depression. While symptoms may be vague, they often include disturbance of sleep, fatigue, loss of appetite, and general loss of interest in life. While depression may be a side effect of drugs, or a reaction to a major change in your life, many cases have no known cause. If depression is acute, and related to a major loss in your life, you can expect it to clear completely with time. If you have been depressed a long time, are prone to repeated bouts of depression or low mood, or have been th inking of suicide, get help. Depression can be treated with anti-depressant medication and counselling. Long-term depression will often take a few weeks to clear, even with appropriate medication. Follow-up care is important. SUICIDAL IDEATION: Suicidal ideation is a common medical term for thoughts about suicide, which may be as detailed as a formulated plan, without the suicidal act itself. Although most people who undergo suicidal ideation do not commit suicide, some go on to make suicide attempts. The range of suicidal ideation varies greatly from fleeting to detailed planning, role playing, and unsuccessful attempts. While thoughts about suicide are common, most people do not carry out serious actions to commit suicide. Based upon your evaluation and discussion wi th you, we do not believe you are currently at risk to act upon your thoughts of suicide. You have agreed to return to the Emergency Department, at any time, if you feel inclined to act upon your suicidal thoughts. FOLLOW-UP CARE: If you have been referred to a physician for follow-up care, call the physicians office for an appointment as you were instructed or within the next two days. If you experience worsening or a significant change in your symptoms, notify the physician immediately or return to the Emergency Department at any time for re-evaluation. Referrals: ROSE MARY CARPENTER PA-C [Primary Care Provider] - Follow up as needed
[2020-02-18 21:10] LABS: ALBUMIN 4.6 g/dL (3.5-5.0); ALKALINE PHOSPHATASE 50 U/L (38-126); ANION GAP 10 (5-19); ASPARTATE AMINO TRANSFERASE 21 U/L (14-36); BILIRUBIN,DIRECT 0.1 mg/dL (0.0-0.4); BILIRUBIN,TOTAL 0.2 mg/dL (0.2-1.3); BLOOD UREA NITROGEN 14 mg/dL (7-20); CALCIUM 9.5 mg/dL (8.4-10.2); CARBON DIOXIDE 23 mmol/L (22-30); CHLORIDE 105 mmol/L (98-107); GLUCOSE 97 mg/dL (75-110); POTASSIUM 4.1 mmol/L (3.6-5.0); TOTAL PROTEIN 7.8 g/dL (6.3-8.2)
[2020-02-18 21:13] LABS: ACETAMINOPHEN < 10 ug/mL (10-30); ALCOHOL < 10 mg/dL (NONE DETECTED); SALICYLATE < 1.0 mg/dL (2.0-20.0)
--- NOTE | 2020-02-18 22:25 | PSYCHOLOGICAL NOTE ---
Psych Note - Psych Note Date seen by psych provider: 02/18/20 Time seen by psych provider: 20:30 Psych Note: Reason for Consult:Suicidal ideation Consent Permissions:none provided Patient arrived to [facility] ED via Clinical Presentation: IVC Criteria per [place] GS 122C Dangerous to others Within the relevant past the individual No has inflicted or attempted to inflict or threatened to inflict serious bodily harm on another AND No that there is a reasonable probability that this conduct will be repeated as there is an absence of supervision or structure to prevent. OR No has acted in such a way as to create a substantial risk of serious bodily harm to another AND No that there is a reasonable probability that this conduct will be repeated as there is an absence of supervision or structure to prevent. OR No has engaged in extreme destruction of property AND NO that there is a reasonable probability that this conduct will be repeated as there is an absence of supervision or structure to prevent. Previous episodes of dangerousness to others, when applicable, may be considered when determining reasonable probability of future dangerous conduct. Clear, c ogent, and convincing evidence that an individual has committed a homicide in the relevant past is prima facie evidence of dangerousness to others. Dangerous to self Within the relevant past the individual has done any of the following: acted in such a way as to show ALL of the following: No The individual would be unable without care, supervision, and the continued assistance of others not otherwise available, to exercise self- control, judgment, and discretion in the conduct of the individual's daily responsibilities and social relations or to satisfy the individual's need for nourishment, personal or medical care, long term, or self-protection and safety. AND No There is a reasonable probability of the individual suffering serious physical debilitation within the near future unless adequate treatment is given. A showing of behavior that is grossly irrational, of actions that the individual is unable to control, of behavior that is grossly inappropriate to the situation, or of other evidence of severely impaired insight and judgment shall create a prima facie inference that the individual is unable to care for himself or herself. OR YES has attempted suicide or threatened suicide AND No that there is a reasonable probability of suicide unless adequate treatment is given as there is an absence of supervision or structure to prevent suicide of patient who has made an attempt, serious gesture or threat. Patient reports continued suicidal ideation, she did not engage in any self-harm behaviors. Patient has received inpatient psychiatric treatment at both [facility] and [facility]; both of which were this month. She was discharged today from [facility]. Patient reports she has a voluntary bed available at [facility] again and would like assistance in going to that placement. Patient has not followed up with outpatient mental health services for therapy. Patient wants voluntary placement. OR No has mutilated himself or herself or attempted to mutilate himself or herself AND No that there is a reasonable probability of serious self-mutilation unless adequate treatment is given as there is an absence of supervision or structure to prevent. NOTE: Previous episodes of dangerousness to self, when applicable, may be considered when determining reasonable probability of physical debilitation, suicide, or self-mutilation. Impression\plan: Patient is cleared from acute psychiatric services. Patient has been inpatient psychiatric treatment 2 times this month to address ongoing depression. Inpatient psychiatric treatment is for medication stabilization. This has been achieved with this patient. Patient is recommended to follow-up with outpatient mental health services for therapy. Patient refuses to follow-up with mental health recommendations and continues to request inpatient psychiatric treatment. Patient is requesting voluntary placement at [facility] in [place]. Unfortunately at this time the behavioral health team is unable to assist with voluntary placement. Therapeutically going inpatient psychiatric treatment would not be appropriate for this patient as she needs therapeutic interventions received through outpatient services. Patient may also possibly benefit from inpatient rehab for substance abuse. Unfortunately at this time the behavioral health team is unable to assist with long-term rehab placement however resources have been provided to this patient. Dr. Echavarria was consulted to care management of this patient; attending physicians in agreement with recommendations and disposition.
--- NOTE | 2020-02-19 11:08 | ER Document Report ---
ED General - General Chief Complaint: Suicidal Ideation Stated Complaint: PSYCH EVAL/CLEARANCE Time Seen by Provider: 02/18/20 18:39 Primary Care Provider: ROSE MARY CARPENTER PA-C [Primary Care Provider] - Follow up as needed Mode of Arrival: Ambulatory TRAVEL OUTSIDE OF THE [place] IN LAST 30 DAYS: No - Related Data Allergies/Adverse Reactions: amoxicillin [Amoxicillin] Allergy (Intermediate, Verified 02/15/20 17:46) Hives Penicillins Allergy (Intermediate, Verified 02/15/20 17:46) Hives Sulfa (Sulfonamide Antibiotics) Allergy (Intermediate, Verified 02/15/20 17:46) Hives morphine Allergy (Mild, Verified 02/15/20 17:46) Hives ketorolac [From Toradol] Allergy (Verified 02/15/20 17:46) Past Medical History - General Information source: Patient - Social History Smoking Status: Current Every Day Smoker Frequency of alcohol use: None Drug Abuse: None Family History: Reviewed & Not Pertinent Patient has suicidal ideation: Yes Patient has homicidal ideation: No - Past Medical History Cardiac Medical History: Reports: Hx Hypertension Denies: Hx Coronary Artery Disease, Hx Heart Attack Pulmonary Medical History: Reports: Hx Asthma - CHILD, Hx Pneumonia - 2007 Denies: Hx Bronchitis, Hx COPD Neurological Medical History: Reports: Hx Migraine. Denies: Hx Cerebrovascular Accident, Hx Seizures Renal/ Medical History: Denies: Hx Peritoneal Dialysis Musculoskeletal Medical History: Reports Hx Arthritis - Chronic back pain, Reports Hx Musculoskeletal Trauma - bilateral LE, spinal cord injury Psychiatric Medical History: Reports: Hx Anxiety, Hx Depression Traumatic Medical History: Reports: Hx Spine Fracture - cervical and lumbar 2019 Past Surgical History: Reports: Hx Oral Surgery, Hx Orthopedic Surgery - RIGHT SHOULDER - Immunizations Immunizations up to date: Yes Hx Diphtheria, Pertussis, Tetanus Vaccination: Yes Physical Exam - Vital signs Vitals: Temp Pulse Resp BP Pulse Ox 98.4 F 90 20 118/63 100 02/18/20 16:53 02/18/20 16:53 02/18/20 16:53 02/18/20 16:53 02/18/20 16:53 Course - Vital Signs Vital signs: Temp Pulse Resp BP Pulse Ox 98.1 F 82 16 89/70 L 100 02/19/20 05:51 02/19/20 05:51 02/19/20 05:51 02/19/20 05:51 02/19/20 05:51 - Laboratory Result Diagrams: 02/18/20 20:12 02/18/20 20:12 Laboratory results interpreted by me: 02/18/20 02/18/20 02/18/20 18:51 20:12 20:12 Hgb 10.7 L Hct 31.9 L MCV 74 L MCH 24.9 L RDW 16.5 H Ur Leukocyte Esterase TRACE H Salicylates < 1.0 L Acetaminophen < 10 L Discharge - Discharge Clinical Impression: Suicidal ideation Condition: Stable Disposition: HOME, SELF-CARE Additional Instructions: You have been evaluated both medical and behavioral health teams and been deemed appropriate for discharge. You have requested assistance in placement for a voluntary bed at [facility] in [place]. Unfortunately, at this time [facility] is unable to assist with voluntary inpatient psychiatric placement as this is an acute medical facility. Therapeutically you are recommended to follow-up with outpatient mental health services for therapy to build your interpretation of your environment, understand your triggers, and build your positive coping skills. Inpatient psychiatric treatment is used for medication stabilization which has been achieved after 2 inpatient psychiatric treatment this month. DEPRESSION: Your evaluation reveals that you have mental depression. While symptoms may be vague, they often include disturbance of sleep, fatigue, loss of appetite, and general loss of interest in life. While depression may be a side effect of drugs, or a reaction to a major change in your life, many cases have no known cause. If depression is acute, and related to a major loss in your life, you can expect it to clear completely with time. If you have been depressed a long time, are prone to repeated bouts of depression or low mood, or have been thinking of suicide, get help. Depression can be treated with anti-depressant medication and counselling. Long-term depression will often take a few weeks to clear, even with appropriate medication. Follow-up care is important. SUICIDAL IDEATION: Suicidal ideation is a common medical term for thoughts about suicide, w hich may be as detailed as a formulated plan, without the suicidal act itself. Although most people who undergo suicidal ideation do not commit suicide, some go on to make suicide attempts. The range of suicidal ideation varies greatly from fleeting to detailed planning, role playing, and unsuccessful attempts. While thoughts about suicide are common, most people do not carry out serious actions to commit suicide. Based upon your evaluation and discussion with you, we do not believe you are currently at risk to act upon your thoughts of suicide. You have agreed to return to the Emergency Department, at any time, if you feel inclined to act upon your suicidal thoughts. FOLLOW-UP CARE: If you have been referred to a physician for follow-up care, call the physicians office for an appointment as you were instructed or within the next two days. If you experience worsening or a significant change in your symptoms, notify the physician immediately or return to the Emergency Department at any time for re-evaluation. Referrals: ROSE MARY CARPENTER PA-C [Primary Care Provider] - Follow up as needed [facility] [Outside] - Follow up as needed
[2020-02-19 11:39] VITALS: BP 113/49
== END 2020-02-19 11:36 | disposition home or self-care (01) ==
LOC: ER 16:26
DX: R45.851 Suicidal ideations (principal); F32.9 Major depressive disorder, single episode, unspecified; F41.9 Anxiety disorder, unspecified; I10 Essential (primary) hypertension; F17.210 Nicotine dependence, cigarettes, uncomplicated; Z88.0 Allergy status to penicillin; Z88.2 Allergy status to sulfonamides; Z88.6 Allergy status to analgesic agent; Z88.5 Allergy status to narcotic agent; Z88.8 Allergy status to other drugs, medicaments and biological substances
CPT/HCPCS: 36415; 80053; 80307; 81001; 84703; 85025; 93005; 93010; 99285